=== PATIENT | female | born 1990 | race Hispanic/Latino ===

== ENCOUNTER → 2016-12-09 | Outpatient (CLI) | payer MEDICAID ==
[~2016-12-09] MED LIST: ACHD5005 PO; CYCL10TA9 PO; NAPR-243 PO; PREN1TAB39 PO
--- OUTSIDE RECORDS SUMMARY | 2016-12-09 08:13 | XMS REPORT ---
Author KITTY [facility] eClinicalWorks Address Unknown Phone Unavailable Care Team Providers Care Grant Officer Name Role Phone KITTY MORGAN CP Unavailable Allergies No Known Allergies Problems Problem Type Condition Code Onset Dates Condition Status Problem Routine follow-up V24.2 Active Problem Acute bronchitis 466.0 Active Problem Other general counseling and advice for contraceptive management V25.09 Active Problem Enlargement of lymph nodes 785.6 Active Problem Need for prophylactic vaccination and inoculation, Influenza V04.81 Active Problem Lumbago 724.2 Active Problem Depressive disorder, not elsewhere classified 311 Active Problem Anxiety state, unspecified 300.00 Active Problem examination or test, positive result V72.42 Active Problem Screening for malignant neoplasm of the cervix V76.2 Active Problem examination or test, negative result V72.41 Active Problem Supervision of other normal V22.1 Active Problem Uterine size date discrepancy, unspecified as to episode of care or not applicable 649.60 Active Medications No Known Medications Results No Known Results Summary Purpose eClinicalWorks Submission
--- NOTE | 2016-12-09 09:47 | Diagnostic Imaging Report ---
PROCEDURE: CT sinuses without contrast TECHNIQUE: Multiple contiguous axial images were obtained through the sinuses without the use of intravenous contrast. Coronal and sagittal reformations were then performed. INDICATION: Acute recurrent sinusitis. FINDINGS: There is significant mucosal thickening involving the maxillary sinuses, the ethmoidal air cells, the frontal sinuses, and the right sphenoidal sinus. Minimal mucosal thickening in the left sphenoidal sinus is seen. There is a mucosal retention cyst or a polyp measuring 2.9 cm in the right maxillary sinus. There is obliteration with mucosal thickening seen along the ostiomeatal complex on both sides. No significant free fluid is seen. The middle and inferior turbinates demonstrate mild to moderate mucosal hypertrophy. There is narrowing and partial obliteration of the upper nasal passages, possibly in part related to secretions. There is minimal nasoseptal deviation to the left. The mastoid air cells and middle ear cavities are clear. IMPRESSION: Pansinusitis. There is a 2.8 cm lobulated lesion in the right maxillary sinus, may relate to a mucosal retention cyst or a polyp. Dictated by: Dictated on workstation # [id number]
== END ==
LOC: RAD 08:01
PROVIDERS: ATTEND Nurse Practitioner Community Health
DX: J01.91 Acute recurrent sinusitis, unspecified (principal)
CPT/HCPCS: 70486

== ENCOUNTER → 2017-02-25 | Outpatient (CLI) | payer MEDICAID ==
--- NOTE | 2017-02-25 17:32 | Diagnostic Imaging Report ---
PROCEDURE: CT sinuses without contrast TECHNIQUE: Multiple contiguous axial images were obtained through the sinuses without the use of intravenous contrast. Coronal and sagittal reformations were then performed. INDICATION: A 26-year-old female with pansinusitis and a right maxillary polyp followup. COMPARISONS: 12/09/16. FINDINGS: Axial images and coronal reconstructions of the paranasal sinuses once again show severe pansinusitis with mucosal thickening noted in all sinuses. The right maxillary sinus is near-completely opacified, and the previously demonstrated large mucus retention cyst boundaries are less apparent. Ostiomeatal complexes are obstructed bilaterally. Nasal septum is essentially midline. Mastoid air cells appear well pneumatized. The orbits including the retro-orbital extraconal, conal, and intraconal spaces are normal. The zygomatic arches and pterygoid plates are normal. IMPRESSION: Severe chronic-appearing pansinusitis with near-complete opacification of the right maxillary sinus. The ostiomeatal complexes are obstructed. Dictated by: Dictated on workstation # [id number]
== END ==
LOC: RAD 16:28
PROVIDERS: ATTEND Otolaryngology Otolaryngology/Facial Plastic Surgery
DX: J32.9 Chronic sinusitis, unspecified (principal); J33.8 Other polyp of sinus
CPT/HCPCS: 70486

== ENCOUNTER 2017-04-02 05:37 | Outpatient (CLI) | payer MEDICAID ==
[~2017-04-02] VITALS: Ht 157.5 cm; Wt 49.9 kg
[2017-04-02] MEDS ORDERED: CETI10TA20 PO (14:36)
== END 2017-04-02 14:44 ==
LOC: PREOP 05:37
PROVIDERS: ATTEND Otolaryngology Otolaryngology/Facial Plastic Surgery
DX: Z01.818 Encounter for other preprocedural examination (principal); J32.9 Chronic sinusitis, unspecified; J34.89 Other specified disorders of nose and nasal sinuses; R09.81 Nasal congestion

== ENCOUNTER 2017-04-09 08:00 | Day surgery (SDC) | payer MEDICAID ==
[~2017-04-09] VITALS: Ht 157.5 cm; Wt 49.9 kg
[~2017-04-09 08:00] MED LIST changes: +CETI10TA20 PO
[2017-04-09] MEDS ORDERED: LACTATED RINGERS 1,000 ML IV PRN (08:18)
[2017-04-09] MEDS ORDERED: SEVOFLURANE (ULTANE) 15 ML INHAL SOLN ONE (08:25)
[2017-04-09] MEDS ORDERED: ROCURONIUM 50 MG/5 ML (ZEMURON) VIAL IV ONE (08:25)
[2017-04-09] MEDS ORDERED: fentaNYL INJECTION 100 MCG/2 ML AMP ONE (08:25)
[2017-04-09] MEDS ORDERED: ONDANSETRON 4 MG/2 ML (SDV) Z0FRAN ONE (08:25)
[2017-04-09] MEDS ORDERED: DEXAMETHASONE PF 10 MG/ML (DECADRON) VIAL ONE (08:25)
[2017-04-09] MEDS ORDERED: proPOfol 200 MG/20 ML (DIPRIVAN) VIAL IV ONE (08:25)
[2017-04-09] MEDS ORDERED: LACTATED RINGERS 1,000 ML IV ONE (08:25)
[2017-04-09] MEDS ORDERED: LIDOCAINE PF 2% 5 ML (XYLOCAINE) VIAL ONE (08:25)
[2017-04-09] MEDS ORDERED: MIDAZOLAM 2 MG/2 ML (VERSED) VIAL ONE (08:26)
[2017-04-09] MEDS ORDERED: AMPICILL/SULB 1.5 GM VIAL (UNASYN) ONE (08:30)
[2017-04-09] MEDS ORDERED: MIDAZOLAM 2 MG/2 ML (VERSED) VIAL IV ONE (08:30)
[2017-04-09] MEDS ORDERED: HYDROCORTISONE 100 MG/2 ML (Solu-CORTEF) VIAL ONE (08:30)
[2017-04-09] MEDS ORDERED: NS (IVPB) 50 ML ONE (08:30)
[2017-04-09] MEDS ORDERED: COCAINE HCL 4% 2 ML SYR ONE ×2 (08:33→08:52)
[2017-04-09] MEDS ORDERED: PHENYLEPHRINE 0.5% NASAL SPR (NEO-SYNEPHRINE) REG ONE ×2 (08:33→08:53)
[2017-04-09] MEDS ORDERED: LIDOCAINE/EPI 1%-1:200,000 (XYLOCAINE) 30 ML VIAL ONE ×2 (08:34→08:53)
[2017-04-09] MEDS ORDERED: MUPIROCIN 2% OINT 22 GM (BACTROBAN) TUBE ONE (08:34)
[2017-04-09] MEDS ORDERED: BSS 15 ML ONE (08:42)
[2017-04-09 08:59] LABS: BASOPHILS % (AUTO) 0 % (0-10); EOSINOPHILS # (AUTO) 0.4 10^3/uL (0.0-0.3); EOSINOPHILS % (AUTO) 4 % (0-10); LYMPHOCYTES # (AUTO) 4.1 X 10^3 (1.0-4.0); LYMPHOCYTES % (AUTO) 44 % (12-44); MEAN CORPUSCULAR HEMOGLOBIN 30 PG (25-34); MEAN CORPUSCULAR HGB CONC 33 G/DL (32-36); MEAN CORPUSCULAR VOLUME 91 FL (80-99); MEAN PLATELET VOLUME 10.5 FL (7.4-10.4); MONOCYTES # (AUTO) 0.6 X 10^3 (0.0-1.0); MONOCYTES % (AUTO) 7 % (0-12); NEUTROPHILS # (AUTO) 4.1 X 10^3 (1.8-7.8); NEUTROPHILS % (AUTO) 45 % (42-75); PLATELET COUNT 233 10^3/uL (130-400); RED CELL DISTRIBUTION WIDTH 12.3 % (10.0-14.5); WHITE BLOOD COUNT 9.3 10^3/uL (4.3-11.0)
[2017-04-09 09:00] VITALS: BP 126/92
[2017-04-09] MEDS ORDERED: HYDROCORTISONE 100 MG/2 ML (Solu-CORTEF) VIAL IV ONE (09:00)
[2017-04-09] MEDS ORDERED: AMPICILLIN/SULBACTAM 1.5 GM/NS 50 ML IVPB IV ONE ×2 (09:00)
[2017-04-09 09:19] LABS: ANION GAP 10 MMOL/L (5-14); BLOOD UREA NITROGEN 17 MG/DL (7-18); BUN/CREATININE RATIO 23 (0-20); CALCIUM 9.1 MG/DL (8.5-10.1); CARBON DIOXIDE 28 MMOL/L (21-32); CHLORIDE 104 MMOL/L (98-107); CREATININE SERUM 0.73 MG/DL (0.60-1.30); GFR ESTIMATED > 60; GLUCOSE 86 MG/DL (70-105); HEMOLYSIS 7 (0-29); ICTERUS 0.3 (0-1.9); LIPEMIA 12 (0-49); POTASSIUM 3.6 MMOL/L (3.6-5.0); SODIUM 142 MMOL/L (135-145)
--- NOTE | 2017-04-09 09:21 | Progress Note-Pre Operative ---
Pre-Operative Progress Note H&P Reviewed The H&P was reviewed, patient examined and no changes noted. Date Seen by Provider: Apr 09, 2017 Time Seen by Provider: 09:10 Date H&P Reviewed: Apr 09, 2017 Time H&P Reviewed: 09:10 Pre-Operative Diagnosis: Bilat Chronic Sinusitis, Deviated Septum, Bilat HYper of Inf turbs KARRIE MCCARTNEY MD Apr 09, 2017 9:21 am
[2017-04-09] MEDS ORDERED: D5 1/2 NS W/KCL 20 MEQ/L 1,000 ML IV SCH (10:35)
--- NOTE | 2017-04-09 10:35 | Progress Note-Post Operative ---
Post-Operative Progess Note Surgeon (s)/Athletic Field Custodian (s) Surgeon KARRIE MCCARTNEY MD Athletic Field Custodian n/a Pre-Operative Diagnosis Bilat Chronic Sinusitis, Deviated Septum, Bilat HYper of Inf turbs Post-Operative Diagnosis same Post-Op Procedure Note Date of Procedure: Apr 09, 2017 Name of Procedure Performed: Bilat ESS, Bilat REd of Inf Turbs Description & Findings Description and Findings: n/a Anesthesia Type get Estimated Blood Loss minimal Packing none. Specimen(s) collected/removed Bilat Chronic Sinus disease KARRIE MCCARTNEY MD Apr 09, 2017 10:35 am
[2017-04-09] MEDS ORDERED: ONDANSETRON 4 MG/2 ML (SDV) Z0FRAN IVP PRN (10:45)
[2017-04-09] MEDS ORDERED: predniSONE 20 MG TAB PO ONE (10:45)
[2017-04-09] MEDS ORDERED: PROMETHAZINE INJ 25 MG/ML (PHENERGAN) AMP IVP PRN (10:45)
[2017-04-09] MEDS ORDERED: ACETAMINOPHEN 325 MG TABLET/CAPLET (TYLENOL) PO PRN (10:45)
[2017-04-09] MEDS ORDERED: HYDROcodone/APAP 5 MG/325 MG (LORTAB) TAB PO PRN (10:45)
[2017-04-09] MEDS ORDERED: morphine INJ 10 MG/ML 1ML (SYR OR VIAL) IVP PRN (10:45)
[2017-04-09 11:25] VITALS: BP 129/91
[2017-04-09 11:55] VITALS: BP 132/92
[2017-04-09] MEDS ORDERED: AMOX-355 PO (12:21)
[2017-04-09] MEDS ORDERED: HYDR-3812 PO (12:21)
[2017-04-09] MEDS ORDERED: PRD20T PO (12:21)
[2017-04-09 12:25] VITALS: BP 125/78
== END 2017-04-09 13:30 | disposition home or self-care (01) ==
LOC: SDC 08:00
PROVIDERS: ATTEND Otolaryngology Otolaryngology/Facial Plastic Surgery
DX: J32.0 Chronic maxillary sinusitis (principal); J32.1 Chronic frontal sinusitis; J32.2 Chronic ethmoidal sinusitis; J34.3 Hypertrophy of nasal turbinates; J45.909 Unspecified asthma, uncomplicated
CPT/HCPCS: 36415; 80048; 84703; 85025; 87081

== ENCOUNTER 2017-12-01 15:28 | Emergency (ER) | payer MEDICAID ==
[~2017-12-01] VITALS: Ht 157.5 cm; Wt 49.9 kg
[~2017-12-01 15:28] MED LIST changes: +AMOX-355 PO; +PRD20T PO
[2017-12-01] MEDS ORDERED: FLUT16SP22 (15:45)
[2017-12-01] MEDS ORDERED: MONT10TA24 (15:45)
[2017-12-01] MEDS ORDERED: LEVO500T80 (15:45)
[2017-12-01] MEDS ORDERED: FLUT1DIS26 (15:45)
[2017-12-01] MEDS ORDERED: RT-ALBUINH (15:45)
--- NOTE | 2017-12-01 15:56 | ED Cough/URI ---
General Chief Complaint: Respiratory Problems Stated Complaint: BREATHING TROUBLE Nursing Triage Note: SOA WITH WHEEZING STARTING YESTERDAY. DENIES FEVER AND STATES HER INHALER IS NOT HELPING. PT IS ON ZYRTEC AND LEVAQUIN FOR A SINUS INFECTION. Source: patient Exam Limitations: no limitations History of Present Illness Date Seen by Provider: Dec 01, 2017 Time Seen by Provider: 15:55 Initial Comments To ER with wheezing and shortness of breath that began yesterday. She's had asthma for about the past 3 years she states were at least at about how long she 's had trouble with it. She has an inhaler at home that she's been using without relief. She is also recently had some nasal congestion, sore throat and so she is on Levaquin antibiotics currently. She is not on steroids. She has had chills but no measured fevers. Timing/Duration: constant Severity/Quality: moderate, dry cough Associated Symptoms: fever/chills, shortness of breath, wheezing Allergies and Home Medications Allergies Coded Allergies: NKANo Known Allergies (Verified Allergy, Unknown, 07/26/06) Home Medications Albuterol Sulfate 1 Puff Puff, (Reported) Cetirizine HCl 10 Mg Tablet, 10 MG PO DAILY, (Reported) Fluticasone Propionate 16 Gm Norman.susp, (Reported) Fluticasone/Salmeterol 1 Each Blst.w.dev, (Reported) Levofloxacin 500 Mg Tablet, (Reported) Montelukast Sodium 10 Mg Tablet, (Reported) Constitutional: see HPI EENTM: see HPI Respiratory: see HPI, cough, short of breath, wheezing Cardiovascular: no symptoms reported Genitourinary: no symptoms reported Musculoskeletal: no symptoms reported Skin: no symptoms reported Psychiatric/Neurological: No Symptoms Reported Hematologic/Lymphatic: No Symptoms Reported Past Ldgpdaq-Aqfynl-Jdkltu Hx Patient Social History Alcohol Use: Rarely Uses Recreational Drug Use: No Smoking Status: Never a Smoker Recent Foreign Travel: No Contact w/Someone Who Travel: No Recent Infectious Disease Expo: No Recent Hopitalizations: No Immunizations Up To Date Date of Influenza Vaccine: Aug 25, 2012 Seasonal Allergies Seasonal Allergies: Yes Surgeries History of Surgeries: No Respiratory History of Respiratory Disorde: Yes Respiratory Disorders: Asthma Cardiovascular History of Cardiac Disorders: No Neurological History of Neurological Disord: Yes (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) Reproductive System Hx Reproductive Disorders: No Genitourinary History of Genitourinary Disor: No Gastrointestinal History of Gastrointestinal Di: No Musculoskeletal History of Musculoskeletal Dis: No Endocrine History of Endocrine Disorders: No HEENT History of HEENT Disorders: No Loss of Vision: Denies Hearing Impairment: Denies Cancer History of Cancer: No Psychosocial History of Psychiatric Problem: No Integumentary History of Skin or Integumenta: No Blood Transfusions History of Blood Disorders: No Adverse Reaction to a Blood Tr: No Physical Exam Vital Signs Vital Signs - First Documented 12/01/17 12/01/17 15:30 16:04 Temp 98.3 Pulse 127 B/P (MAP) 135/66 (89) Pulse Ox 96 O2 Delivery Room Air Capillary Refill : Less Than 3 Seconds General Appearance: WD/WN, no apparent distress, No mild distress, No moderate distress, No severe distress Eyes: Bilateral Eye Normal Inspection, Bilateral Eye PERRL, Bilateral Eye EOMI HEENT: PERRL/EOMI, normal ENT inspection Neck: non-tender, full range of motion Respiratory: no respiratory distress, no accessory muscle use, decreased breath sounds, wheezing Cardiovascular: regular rate, rhythm, no murmur Gastrointestinal: normal bowel sounds, non tender, soft Extremities: normal range of motion, non-tender Neurologic/Psychiatric: alert, normal mood/affect, oriented x 3 Skin: normal color, warm/dry Progress/Results/Core Measures Suspected Sepsis Recent Fever Within 48 Hours: No Infection Criteria Present: Suspected New Infection New/Unexplained Altered Menta: No Sepsis Screen: No Definite Risk Sepsis Diagnosis: SIRS Temperature:98.3 Pulse: 127 Respiratory Rate: Blood Pressure 135 /66 Mean: 89 Results/Orders My Orders Orders - PATRICE KOO APRN Albuterol/Ipra Inhalation Soln (Duoneb I (12/01/17 16:00) Svn Sm Volume Nebulizer Rt-Rfs (12/01/17 15:47) Prednisone Tablet (Deltasone Tablet) (12/01/17 16:00) Chest Pa/Lat (2 View) (12/01/17 15:52) Influenza A And B Antigens (12/01/17 15:52) Medications Given in ED Current Medications Medications Dose Ordered Sig/[place] Route Start Time Stop Time Status Last Admin Dose Admin Albuterol/ Ipratropium 3 ml ONCE ONCE INH 12/01/17 16:00 12/01/17 16:01 DC 12/01/17 16:04 3 ML Vital Signs/I&O Vital Sign - Last 12Hours 12/01/17 12/01/17 15:30 16:04 Temp 98.3 Pulse 127 B/P (MAP) 135/66 (89) Pulse Ox 96 97 O2 Delivery Room Air Capillary Refill : Less Than 3 Seconds Blood Pressure Mean: 89 Departure Impression Impression: Primary Impression: Asthma exacerbation Disposition: HOME, SELF-CARE Condition: Stable Departure-Patient Inst. Decision time for Depature: 16:48 Referrals: KITTY MORGAN DO (PCP) Primary Care Physician LUIS ALFREDO MATTHEWS (Family) Primary Care Physician Patient Instructions: Asthma, Adult (DC) Add. Discharge Instructions: 1. Return to ER for any worsening symptoms or other concerns such as difficulty breathing, high fever 2. Use the nebulizer breathing machine every 4 hours 3. Steroids as directed 4. Follow-up with your regular doctor within 48 hours for recheck. Continue current antibiotics. All discharge instructions reviewed with patient and/or family. Voiced understanding. Scripts Albuterol Sulfate (Albuterol Sulfate) 2.5 Mg/3 Ml Vial.neb 2.5 MG IH Q4H, #25 EA Prov: PATRICE KOO APRN 12/01/17 Prednisone (Prednisone) 20 Mg Tab 40 MG PO DAILY, #8 TAB Prov: PATRICE KOO APRN 12/01/17 Work/School Note: Work Release Form Date Seen in the Emergency Department: Dec 01, 2017 Return to Work: Dec 03, 2017 PATRICE KOO APRN Dec 01, 2017 15:56
[2017-12-01] MEDS ORDERED: RT-ALBUTEROL/IPRATROPIUM 3 ML (DUONEB) VIAL INH ONE (16:00)
[2017-12-01] MEDS ORDERED: predniSONE 20 MG TAB PO ONE (16:00)
[2017-12-01] MEDS ORDERED: PRD20T PO (16:50)
[2017-12-01] MEDS ORDERED: ALBU2.5V4 IH (16:50)
--- NOTE | 2017-12-01 16:54 | Diagnostic Imaging Report ---
Clinical indication: A patient with cough, wheezing and congestion. Exam: Chest x-ray PA and lateral views. Comparisons: None. Findings: Lungs/pleura: Lungs are clear. There is no pneumothorax. There is no pleural effusion. Mediastinum: Unremarkable. Pulmonary vasculature: Unremarkable. Heart: Unremarkable. Bones/extrathoracic soft tissue: Unremarkable. Impression: There is no radiographic evidence of acute cardiopulmonary process. Dictated by: Dictated on workstation # [id number]
[2017-12-01] MEDS ORDERED: RT-ALBUTEROL SULF 2.5 MG/3 ML PRE-MIX VIAL ONE (17:09)
[2017-12-01 17:30] VITALS: BP 125/86
[2017-12-01] MEDS ORDERED: RT-ALBUTEROL SULF 2.5 MG/3 ML PRE-MIX VIAL INH SCH (21:00)
== END 2017-12-01 17:30 | disposition home or self-care (01) ==
LOC: EDUNIT# 15:28 → ER 15:29
DX: J45.901 Unspecified asthma with (acute) exacerbation (principal); Z88.1 Allergy status to other antibiotic agents
CPT/HCPCS: 71046; 87804; 94640; 99283

== ENCOUNTER 2018-04-29 07:22 | Day surgery (SDC) | payer MEDICAID ==
[~2018-04-29] VITALS: Ht 157.5 cm; Wt 49.9 kg
[~2018-04-29 07:22] MED LIST changes: +ALBU2.5V4 IH; +FLUT16SP22; +FLUT1DIS26; +LEVO500T80; +MONT10TA24; +RT-ALBUINH
[2018-04-29] MEDS ORDERED: ceFAZolin 2 GM IV Premixed 50 ML IV ONE (07:30)
[2018-04-29] MEDS ORDERED: LIDOCAINE/EPI 1%-1:200,000 (XYLOCAINE) 10 ML VIAL ONE ×2 (07:31→09:32)
[2018-04-29 07:45] VITALS: BP 115/90
[2018-04-29] MEDS: LACTATED RINGERS 1,000 ML IV PRN ×2 (07:50→10:17)
[2018-04-29] MEDS ORDERED: LIDOCAINE PF 2% 5 ML (XYLOCAINE) VIAL ONE ×2 (07:55→08:00)
[2018-04-29] MEDS ORDERED: proPOfol 200 MG/20 ML (DIPRIVAN) VIAL IV ONE (07:55)
[2018-04-29] MEDS ORDERED: fentaNYL INJECTION 100 MCG/2 ML AMP ONE (07:56)
[2018-04-29] MEDS ORDERED: MIDAZOLAM 2 MG/2 ML (VERSED) VIAL ONE (07:56)
[2018-04-29] MEDS ORDERED: SEVOFLURANE (ULTANE) 15 ML INHAL SOLN ONE ×2 (07:59→10:16)
[2018-04-29] MEDS ORDERED: ONDANSETRON 4 MG/2 ML (SDV) Z0FRAN ONE (08:00)
[2018-04-29] MEDS ORDERED: DEXAMETHASONE 10 MG/ML (DECADRON) 1 ML VIAL ONE (08:00)
--- NOTE | 2018-04-29 09:11 | Progress Note-Pre Operative ---
Pre-Operative Progress Note H&P Reviewed The H&P was reviewed, patient examined and no changes noted. Time Seen by Provider: 09:06 Date H&P Reviewed: Apr 29, 2018 Time H&P Reviewed: 09:09 Pre-Operative Diagnosis: possible anal fistula KINGS DA SILVA DO Apr 29, 2018 09:11
[2018-04-29] MEDS ORDERED: PHENYLEPHRINE 100 MCG/ML 10 ML (ANESTHESIA) SYR ONE (09:40)
--- NOTE | 2018-04-29 09:52 | Progress Note-Post Operative ---
Post-Operative Progess Note Surgeon (s)/Guest Services (s) Surgeon KINGS DA SILVA DO Guest Services: none Pre-Operative Diagnosis possible anal fistula Post-Operative Diagnosis Inguinal Abscess Procedure & Operative Findings Date of Procedure 04/29/18 Procedure Performed/Findings REUA I&D inguinal abscess Anesthesia Type GET Estimated Blood Loss Estimated blood loss (mL): Scant Specimens/Packing Specimens Removed none KINGS DA SILVA DO Apr 29, 2018 09:52
[2018-04-29] MEDS ORDERED: ACHD5005 PO (09:53)
--- NOTE | 2018-04-29 09:55 | Discharge Inst-Surgical ---
Discharge Inst-Surgical Depart Medication/Instructions New, Converted or Re-Newed RX: RX Given to Pt/Family Patient Instructions Follow up Appt: Make appointment for 1 week. Instructions: No lifting greater than 10 pounds. No strenuous activity. May shower in 24 hours, no tub bath or soaking. Use incentive spirometer at home as directed. No Smoking Skin/Wound Care: May remove bandages in the am. Keep area clean and dry. Symptoms to Report: Appetite Changes, Extremity Discoloration, Numbness/Tingling, Swelling Increased , Bleeding Excessive, Eyesight Changes, Pain Increased, Urine Color Change, Constipation(Persistent), Fever over 101 degree F, Pain/Pressure in chest, Urinating Difficulty, Cough Up/Vomit Blood, Heart Beat Irreg/Pounding, Pain/ Pressure in jaw, Vaginal Bleeding Increase, Cramps in feet or legs, Lightheadedness, Pain/Pressure in shoulder, Diarrhea(Persistent), Memory Changes Suddenly, Questions/Concerns, Weight gain consecutive days, Dizziness/ Fainting, Nausea/Vomiting, Shortness of Breath, Weight gain over 2 pounds If questions or concerns contact your physician Or seek help at emergency department. Activity Activity Instructions: Avoid Stress to Incision Driving Instructions: No Driving/Refer to Diet Discharge Diet: No Restrictions Diet After 24 Hours: Clear Liquid if Nauseous If Any Problems/Questions/Issu: Contact Your Physician, Go to Emergency Room Skin/Wound Care Infection Signs and Symptoms: Increased Redness, Foul Odor of Wound, Increased Drainage, Skin Itchy or Has a Rash, Increased Swelling, Temperature Above 101 F Bathing Instructions: Shower Ice Pack: Ice On and Off Site (as needed for pain) KINGS DA SILVA DO Apr 29, 2018 09:55
--- NOTE | 2018-04-29 10:07 | Anesthesia-General Post-Op ---
General Patient Condition Mental Status/LOC: Same as Preop Cardiovascular: Satisfactory Nausea/Vomiting: Absent Respiratory: Satisfactory Pain: Controlled Complications: Absent Post Op Complications Complications None Follow Up Care/Instructions Patient Instructions None needed. Anesthesia/Patient Condition Patient Condition Patient is doing well, no complaints, stable vital signs, no apparent adverse anesthesia problems. No complications reported per nursing. DAO MENDEZ CRNA Apr 29, 2018 10:07
[2018-04-29] MEDS ORDERED: ONDANSETRON 4 MG/2 ML (SDV) Z0FRAN IVP PRN (10:15)
[2018-04-29] MEDS ORDERED: morphine INJ 10 MG/ML 1ML (SYR OR VIAL) IVP PRN (10:15)
[2018-04-29] MEDS ORDERED: morphine INJ 10 MG/ML 1ML (SYR OR VIAL) ONE (10:19)
[2018-04-29 11:00] VITALS: BP 118/71
[2018-04-29 11:30] VITALS: BP 105/64
[2018-04-29 11:50] VITALS: BP 107/63
--- NOTE | 2018-04-29 15:39 | OPERATIVE REPORT ---
DATE OF SERVICE: 04/29/2018 PREOPERATIVE DIAGNOSES: Possible anal fistula and possible perirectal abscess. POSTOPERATIVE DIAGNOSIS: Inguinal abscess. PROCEDURE: 1. Rectal exam under anesthesia. 2. Incision and drainage of inguinal abscess. SURGEON: Earl Sahu DO URBAN FORESTER: None. ANESTHESIA: General endotracheal tube. SPECIMENS: None. BLOOD LOSS: Scant. FLUIDS: Per anesthesia. POSTOPERATIVE CONDITION: Stable. INDICATION FOR PROCEDURE: The patient is a 27-year-old female, who was seen in the office with complaints of rectal pain, fullness, swelling seen for possible fistula and set up for a possible fistulectomy, fistulotomy, Seton placement. FINDINGS: The area that had been previously inflamed was now not inflamed, could not feel any deep abscess, could not feel any connection between the rectum and she did have a new inguinal abscess and rectal exam was performed. PROCEDURE NOTE: After informed consent was obtained, the patient was brought to the operating room, placed on the table in lithotomy position. She was sterilely prepped and draped in normal fashion. Upon visual inspection, the patient had a new abscess in the inguinal area. She had actually mentioned this prior to going back to the operating room and stated she wanted it looked at. She was given ischial tuberosity blocks then did a rectal exam under anesthesia. Inserted the speculum, opened it gently and then looked all around starting at 12 o'clock and going all around back to the 12 o'clock position and did not find any inflammatory spots, did not find any openings. No sign of an anal fistula on the inside. Inspected the area that was previously seen was at 8 o'clock position during the exam in the office now would be about 5 o'clock position or 4 o'clock position. When in the lithotomy position, I did not see a previous area of redness. Nothing obvious, but we did find was in the inguinal area, there was a new large what looked like an abscess. This was infiltrated with local lidocaine around it as well. I then made an incision with #11 blade, carried down through the skin, found some slightly necrotic tissue. This was cauterized and debrided. No real pus. I did not see any connection to anywhere else and this was after debridement and inspection then irrigated and then closed with 4-0 undyed Monocryl to close it loosely, two 4-0 stitches were used and again looked around inspected the perirectal area, did not find any other abscesses and at this point then finished the procedure. The inguinal incision was dressed and the patient was then transferred to recovery room in stable condition. Sponge, instrument and needle count correct at the end of the case. Job ID: [id number] DocumentID: [id number] Dictated Date: 04/29/2018 11:10:21 Collar Folder Operator Date: 04/29/2018 15:38:33 Dictated By: DO SHERIF KING
== END 2018-04-29 11:55 | disposition home or self-care (01) ==
LOC: SDC 07:22
PROVIDERS: ATTEND Surgery
DX: K62.89 Other specified diseases of anus and rectum (principal); L02.214 Cutaneous abscess of groin; J45.909 Unspecified asthma, uncomplicated
CPT/HCPCS: 84703; 87081

== ENCOUNTER 2018-11-04 05:38 | Outpatient (CLI) | payer MEDICAID ==
[~2018-11-04] VITALS: Ht 157.5 cm; Wt 51.3 kg
[~2018-11-04 05:38] MED LIST changes: -RT-ALBUINH; +RT-ALBUINH IH
== END 2018-11-04 12:30 | disposition home or self-care (01) ==
LOC: PREOP 05:38
PROVIDERS: ATTEND Surgery
DX: Z01.818 Encounter for other preprocedural examination (principal)

== ENCOUNTER 2018-11-09 08:02 | Day surgery (SDC) | payer MEDICAID ==
[~2018-11-09] VITALS: Ht 157.5 cm; Wt 51.3 kg
[~2018-11-09 08:02] MED LIST changes: +LACTATED RINGERS 1,000 ML IV ONE
[2018-11-09 08:05] VITALS: BP 126/92
[2018-11-09] MEDS ORDERED: LACTATED RINGERS 1,000 ML IV STA (08:12)
[2018-11-09] MEDS ORDERED: MIDAZOLAM 2 MG/2 ML (VERSED) VIAL ONE (08:14)
[2018-11-09] MEDS ORDERED: PROPOFOL INJECTION 50 ML IV ONE (08:14)
[2018-11-09] MEDS ORDERED: HURRICAINE EXT TUBE (BENZOCAINE) XX PRN (08:15)
--- NOTE | 2018-11-09 08:27 | Progress Note-Pre Operative ---
Pre-Operative Progress Note H&P Reviewed The H&P was reviewed, patient examined and no changes noted. Time Seen by Provider: 08:23 Date H&P Reviewed: Nov 09, 2018 Time H&P Reviewed: 08:25 Pre-Operative Diagnosis: Gastritis, Cough, Asthma KINGS DA SILVA DO Nov 09, 2018 08:27
[2018-11-09] MEDS ORDERED: HURRICAINE EXT TUBE (BENZOCAINE) ONE (08:30)
[2018-11-09] MEDS ORDERED: fentaNYL INJECTION 100 MCG/2 ML AMP ONE (08:35)
--- NOTE | 2018-11-09 08:51 | Progress Note-Post Operative ---
Post-Operative Progess Note Surgeon (s)/Afternoon Nanny (s) Surgeon KINGS DA SILVA DO Afternoon Nanny: none Pre-Operative Diagnosis Gastritis, Cough, Asthma Post-Operative Diagnosis Gastritis Gastric polyp Esophagitis Procedure & Operative Findings Date of Procedure 11/09/18 Procedure Performed/Findings EGD with bx EGD with polypectomy Anesthesia Type IV sedation by CARAMEL CUTTER HELPER Estimated Blood Loss Estimated blood loss (mL): scant Specimens/Packing Specimens Removed Antral bx Body of stomach bx Polyp biopsy GE jxn bx KINGS DA SILVA DO Nov 09, 2018 08:51
[2018-11-09] MEDS ORDERED: PANT40TA2 PO (08:52)
--- NOTE | 2018-11-09 08:54 | Endoscopy Discharge Instruct ---
Endo Procedure/Findings Findings 1.: Gastritis 2.: Polyp (on lesser curvature of stomach) 3.: Other Findings (Esophagitis) Discharge Instructions - Activity: You might feel a little sleepy until tomorrow. This is due to the medicine you received to relax you. Until tomorrow, you should: NOT drive a car, operate machinery or power tools. NOT drink any alcoholic beverages. NOT make any important decisions or sign importortant papers. Do not return to work until tomorrow, unless otherwise instructed. Resume previous activities tomorrow. Diet: Start by taking liquids. If you tolerate liquids, advance to solid food. Make an appointment for one week. Instructions: 1.: EGD in 6-8 weeks Notify Physician - If you experience excessive bleeding, unusual abdominal pain, fever, or chest pain, contact your doctor immediately. Follow-Up: - I have received and understand the above instructions and will call my doctor if I have any further questions. Patient Signature Date Nurse Signature Other (Relationship) KINGS DA SILVA DO Nov 09, 2018 08:54
[2018-11-09 09:15] VITALS: BP 131/62
[2018-11-09 09:45] VITALS: BP 105/80
[2018-11-09 10:00] VITALS: BP 105/80
--- OUTSIDE RECORDS SUMMARY | 2018-11-09 10:07 | XMS REPORT ---
Author Author LUIS ALFREDO MATTHEWS Organization [facility] Address [address] [place] [address] [address] Care [address] Man Name Role Phone LUIS ALFREDO MATTHEWS Unavailable PROBLEMS Type Condition ICD9-CM Code NZK29-TN Code Onset Dates Condition Status SNOMED Code Problem Mild intermittent asthma without complication J45.20 Active 927622783 Problem Anal fistula K60.3 Active 61896769 Problem Anxiety F41.9 Active 71923391 Problem Dysthymia F34.1 Active 93900451 Problem Insomnia, unspecified type G47.00 Active 957034503 Problem Moderate persistent asthma without complication J45.40 Active 220258628 Problem Anorexia R63.0 Active 08183667 Problem Chronic pansinusitis J32.4 Active 34661725 ALLERGIES Substance Reaction Event Type Date Status Ortho Tri-Cyclen (28) nausea Drug Allergy Mar, Active Depo-Provera Unknown Drug Allergy Mar, Active ENCOUNTERS Encounter Location Date Diagnosis [facility] [id number] [place] [address]28- 3461 Mar, Anxiety F41.9 ; Moderate persistent asthma without complication J45.40 and Acute non-recurrent maxillary sinusitis J01.00 [facility] [id number] [place] [address] 22109 -5977 13 Mar, 2018 Pilonidal cyst L05.91 [facility] [id number] [place] [address] 37818- 7182 Jan, Encounter for test, result unknown Z32.00 [facility] [id number] [place] [address] 58003 -8302 16 Jan, 2018 Nausea R11.0 [facility] [address] [address]- 9936 Dec, Moderate persistent asthma without complication J45.40 [facility] [id number] [place] [address] 87187- 3496 Dec, Dysthymia F34.1 ; Moderate persistent asthma without complication J45.40 and Anorexia R63.0 [place] [id number] [place] [address] 27882- 6187 May, Acute non-recurrent maxillary sinusitis J01.00 [facility] [address] [address]44- 3271 14 Dec, 2016 control counseling Z30.09 [place] [address] 88830- 3186 02 Dec, 2016 Chronic pansinusitis J32.4 [place] [address] 59092- 8784 21 Nov, 2016 [place] [address] 12327- 3491 14 Nov, 2016 [place] [id number] [place] [address] 05161- 3629 13 Nov, 2016 Acute recurrent sinusitis, unspecified location J01.91 and control counseling Z30.09 [place] [id number] [place] [address] 62090- 0312 11 Oct, 2016 Acute non-recurrent sphenoidal sinusitis J01.30 ; Moderate persistent asthma without complication J45.40 and Encounter for surveillance of contraceptive pills Z30.41 [place] [address] [place] [address] 15851- 2849 Oct, Moderate persistent asthma without complication J45.40 [place] [id number] [place] [address] 35427- 9998 Oct, Encounter for contraceptive management, unspecified contraceptive encounter type Z30.9 and Moderate persistent asthma without complication J45.40 [place] [id number] [place] [address] 58864- 1980 Aug, Well woman exam with routine gynecological exam Z01.419 [facility] [address] 78856- 0733 09 Aug, 2016 Encounter for contraceptive management, unspecified contraceptive encounter type Z30.9 ; Subacute frontal sinusitis J01.10 and Insomnia, unspecified type G47.00 [facility] [address] 50974- 0325 Jul, Moderate persistent asthma without complication J45.40 [facility] [address] 83729 -9839 29 Jun, 2016 Wheezing R06.2 and Mild intermittent asthma in adult without complication J45.20 [place] [address] 01570- 1214 Jun, Mild intermittent asthma without complication J45.20 and Bleeding external hemorrhoids K64.4 [facility] [address] 36339 -9190 Jun, Allergic rhinitis, unspecified allergic rhinitis trigger, unspecified rhinitis seasonality J30.9 [facility]ALK IN [facility] [address] 24199 -6064 May, Acute recurrent sinusitis, unspecified location J01.91 and Exposure to head lice Z20.[address] 22543- 2161 Jan, Reactive airway disease J45.[address] [facility] [address] [id number] Jan, Dental examination Z01.20 [facility] [address] 99742- 2088 24 Dec, 2015 Acute bronchitis J20.9 and Left knee pain M25.562 [place] [address] 54255- 5858 Sep, [place] [address] [place] [address]- 0479 14 Jan, 2015 [facility] [place] [facility] [address] [id number] [place] [address]- 2198 13 Jan, 2015 [facility] [place] [facility] [address] [id number] [place] [address]- 2578 31 Sep, 2014 [facility] [place] [facility] [address] [id number] [place] [address]- 3995 Sep, [facility] [place] [facility] [address] [id number] [place] [address]- 6994 Mar, [facility] [place] [facility] [address] [id number] [place] [address]- 2938 Mar, [facility] [place] [facility] [address] [id number] [place] [address]- 4556 Mar, [facility] [place] [facility] [address] [id number] [place] [address]- 9842 Mar, [facility] [place] [facility] [address] [id number] [place] [address]- 4130 Mar, [facility] [place] [facility] [address] [id number] [place] [address]- 1139 Mar, [facility] [place] [facility] [address] [facility] [id number] [place] [address]- 9900 Sep, [facility] [place] [facility] [address] [id number] [place] [address]- 8273 Sep, [facility] [place] [facility] [address] [id number] [place] [address]- 6552 Aug, [facility] [place] [facility] [address] [id number] [place] [address]- 5349 05 Aug, 2013 [facility] [place] [facility] [address] [facility] [id number] [place] [address]- 2737 19 Jun, 2013 [facility] [place] [facility] [address] [id number] [place]393 16 Jun, 2013 [facility] [place] [facility] [address] [id number] [place] [address]- 0409 Jun, [facility] [address] [id number] [place] [address]- 0441 February, [facility] [place] [facility] [address] [id number] [place] [address]- 2283 Oct, [facility] [address] [id number] [place] [address]- 0101 Sep, [facility] [address] [id number] [place] [address]- 0730 Sep, [facility] [address] [id number] [place] [address]- 3781 Aug, [facility] [address] [id number] [place] [address]- 5305 Aug, [facility] [address] [id number] [place] [address]- 4665 Aug, [facility] [place] [facility] [address] [id number] [place] [address]- 9869 Aug, [facility] [address] [id number] [place] [address]- 6632 Aug, [facility] [place] [facility] [address] [id number] [place] [address]- 5747 Aug, [facility] [place] [facility] [address] [id number] [place] [address]- 7184 Aug, [facility] [place] [facility] [address] [id number] [place] [address]- 8988 Aug, [facility] [place] [facility] [address] [id number] [place] [address]- 1037 Aug, [facility] [place] [facility] [address] [id number] [place] [address]- 3550 Aug, [facility] [place] [facility] [address] [id number] [place] [address]- 2546 Jul, [facility] [place] [facility] [address] [id number] [place] [address]- 9845 Jul, [facility] [place] [facility] [address] [id number] [place] [address]- 6733 Jul, [facility] [place] [facility] [address] [id number] [place] [address]- 9950 Jul, [facility] [place] [facility] [address] [id number] [place] [address]- 4291 Jul, [facility] [place] [facility] [address] [id number] [place] [address]- 0919 Jul, [facility] [place] [facility] [address] [id number] [place] 4791 Jul, [facility] [place] [facility] [address] [id number] [place] [address]- 2356 Jul, [facility] [place] [facility] [address] [id number] [place] [address]- 7666 Jul, [facility] [place] [facility] [address] [id number] [place] [address]- 2102 Jun, [facility] [place] [facility] [address] [id number] [place] [address]- 0766 May, [facility] [place] [facility] [address] [id number] [place] [address]- 7942 Apr, [facility] [place] [facility] [address] [id number] [place] [address]- 9801 Apr, [facility] [place] [facility] [address] [id number] [place] [address]- 3072 Apr, [facility] [place] [facility] [address] [id number] [place] [address]- 4534 Mar, [facility] [place] [facility] [address] [id number] [place] [address]- 0302 Mar, [facility] [place] [facility] [address] [facility] [id number] [address]84 Mar, [facility] [address] [facility] [id number] [address]- 5027 Mar, [facility] [address] [address]- 7916 February, [facility] [address] [address]- 6205 Sep, [facility] [address] [address]- 3354 Sep, [place] [address] [address]- 2591 February, IMMUNIZATIONS No Known Immunizations SOCIAL HISTORY Never Assessed REASON FOR VISIT Depression f/u- pt states she is "good". Raiza, Feels like she has a sinus infection. PLAN OF CARE Activity Details Follow Up next available Reason:depression VITAL SIGNS Height 62 in 2018-04-18 Weight 111.6 lbs 2018-04-18 Temperature 98.4 degrees Fahrenheit 2018-04-18 Heart Rate 76 bpm 2018-04-18 Respiratory Rate 20 2018-04-18 BMI 20.41 kg/m2 2018-04-18 Blood pressure systolic 112 mmHg 2018-04-18 Blood pressure diastolic 80 mmHg 2018-04-18 MEDICATIONS Medication Instructions Dosage Frequency Start Date End Date Duration Status Azithromycin 250 MG Orally 2 tabs on day #1 then 1 tab daily days 2-5 as directed Mar, Active Sertraline HCl 50 mg Orally Once a day X 4 days then 1 tab 1/2 tablet Mar, 30 day(s) Active Singulair 10 mg Orally Once a day in PM 1 tablet in the evening Jan, Active Pulmicort Flexhaler 180 MCG/ACT Inhalation Twice a day 1 puff 12h 14 Dec, 2017 Active Albuterol Sulfate (2.5 MG/3ML) 0.083% Inhalation Three times a day 3 ml 8h 12 Jul, 2016 Active Zyrtec Allergy 10MG Orally Once a day Ike 1 tablet as needed 30 Active Qnasl 80 MCG/ACT Nasally Once a day 2 puffs in each nostril 24h 20 Dec, 2018 90 days Active Albuterol Sulfate HFA 108 (90 Base) MCG/ACT Inhalation every 4 hrs 2 puffs as needed 4h Jun, 90 days Active Zofran 4 MG Orally every 8 hours, PRN as directed Jan, 03 days Not-Taking RESULTS No Results PROCEDURES No Known procedures INSTRUCTIONS MEDICATIONS ADMINISTERED No Known Medications MEDICAL (GENERAL) HISTORY Type Description Date Medical History Seasonal allergic rhinitis, unspecified allergic rhinitis trigger Surgical History Sinus surgery 05/2017 Hospitalization History childbirth x3 Hospitalization History miscarriage x1
--- OUTSIDE RECORDS SUMMARY | 2018-11-09 10:07 | XMS REPORT ---
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 Active 20937397 Problem Anxiety F41.9 Active 90568619 Problem Dysthymia F34.1 Active 55191216 Problem Insomnia, unspecified type G47.00 Active 922798862 Problem Moderate persistent asthma without complication J45.40 Active 821363176 Problem Anorexia R63.0 Active 48702420 Problem Chronic pansinusitis J32.4 Active 66948055 ALLERGIES Substance Reaction Event Type Date Status Ortho Tri-Cyclen (28) nausea Drug Allergy Sep, Active Depo-Provera Unknown Drug Allergy Sep, Active ENCOUNTERS Encounter Location Date Diagnosis [place] [id number] [place] [address] 44586- 2300 Oct, [facility] [id number] [place] [address] 59925 -7035 Sep, Acute non-recurrent frontal sinusitis J01.10 [facility] [id number] [place] [address] 73676- 4225 Mar, Anxiety F41.9 ; Moderate persistent asthma without complication J45.40 and Acute non-recurrent maxillary sinusitis J01.00 [facility] [id number] [place] [address] 55410 -2254 Mar, Pilonidal cyst L05.91 [place] [id number] [place] [address] 38897- 3601 Jan, Encounter for test, result unknown Z32.00 [facility] IN [facility] [address] 54963 -3577 16 Jan, 2018 Nausea R11.0 [facility] [address] 73303- 8631 20 Dec, 2017 Moderate persistent asthma without complication J45.40 [facility] [address] 310468- 6126 14 Dec, 2017 Dysthymia F34.1 ; Moderate persistent asthma without complication J45.40 and Anorexia R63.0 [place] [address] 21762- 7909 May, Acute non-recurrent maxillary sinusitis J01.00 [place] [address] 95612- 5460 14 Dec, 2016 control counseling Z30.09 [place] [address] 68363- 1431 02 Dec, 2016 Chronic pansinusitis J32.4 [place] [address] 90166- 2125 21 Nov, 2016 [facility] [address] 95118- 6178 14 Nov, 2016 [facility] [address] 52557- 5215 13 Nov, 2016 Acute recurrent sinusitis, unspecified location J01.91 and control counseling Z30.09 [place] [address] 06546- 4945 11 Oct, 2016 Acute non-recurrent sphenoidal sinusitis J01.30 ; Moderate persistent asthma without complication J45.40 and Encounter for surveillance of contraceptive pills Z30.41 [place] [address] 57300- 8345 10 Oct, 2016 Moderate persistent asthma without complication J45.40 [facility] [id number] [place] [address] 81634- 6999 Oct, Encounter for contraceptive management, unspecified contraceptive encounter type Z30.9 and Moderate persistent asthma without complication J45.40 [place] [address] 39484- 3270 Aug, Well woman exam with routine gynecological exam Z01.419 [place] [address] 19605- 5085 Aug, Encounter for contraceptive management, unspecified contraceptive encounter type Z30.9 ; Subacute frontal sinusitis J01.10 and Insomnia, unspecified type G47.00 [place] [address] 94805- 9613 Jul, Moderate persistent asthma without complication J45.40 [facility] [address] 15778 -1711 Jun, Wheezing R06.2 and Mild intermittent asthma in adult without complication J45.20 [place] [address] 11806- 8517 Jun, Mild intermittent asthma without complication J45.20 and Bleeding external hemorrhoids K64.4 [facility] [address] 05518 -9095 Jun, Allergic rhinitis, unspecified allergic rhinitis trigger, unspecified rhinitis seasonality J30.9 [facility] [address] 22769 -1624 May, Acute recurrent sinusitis, unspecified location J01.91 and Exposure to head lice Z20.[address] 6[address]- 7639 18 Jan, 2016 Reactive airway disease J45.909 and Constipation K59.00 [facility] [address] [id number] Jan, Dental examination Z01.20 [facility] [address] [facility] [id number] [address]- 1110 24 Dec, 2015 Acute bronchitis J20.9 and Left knee pain M25.562 [facility] [address] [place] [address]- 3890 14 Sep, 2015 [facility] [id number] [address]- 7337 14 Jan, 2015 [facility] [id number] [place] [address] 52867- 8323 Jan, [facility] [id number] [place] [address], [place] [address]- 8382 Sep, [facility] [id number] [place] [address] 05787- 0399 Sep, [facility] [id number] [place] [address] 83065- 2922 Mar, [facility] [address] [address]- 5719 Mar, [facility] [address] [place] [address] 67482- 3733 Mar, [facility] [address] [address]- 1938 Mar, [facility] [address] [address]- 1579 Mar, [facility] [address] [address]- 2720 Mar, [facility] [address] [address]- 7139 Sep, [facility] [address] [address]- 4207 Sep, [facility] [address] [address]- 7238 Aug, [facility] [place] [facility] [address] [id number] [place] [address]- 3026 05 Aug, 2013 [facility] [place] [facility] [address] [id number] [place] [address]- 0636 19 Jun, 2013 [facility] [place] [facility] [address] [id number] [place] [address] 2546 16 Jun, 2013 [facility] [place] [facility] [address] [id number] [place] [address]- 9914 12 Jun, 2013 [facility] [place] [facility] [address] [id number] [place] [address]- 6460 February, [facility] [place] [facility] [address] [id number] [place] [address]- 1366 Oct, [facility] [place] [facility] [address] [id number] [place] [address]- 9692 Sep, [facility] [place] [facility] [address] [id number] [place] [address]- 1450 Sep, [facility] [place] [facility] [address] [id number] [place] [address]- 9537 Aug, [facility] [place] [facility] [address] [id number] [place] [address]- 6282 Aug, [facility] [place] [facility] [address] [id number] [place] [address]- 4333 Aug, [facility] [place] [facility] [address] [id number] [place] [address]- 0855 Aug, [facility] [place] [facility] [address] [id number] [place] [address]- 5822 Aug, [facility] [place] [facility] [address] [id number] [place] [address]- 4265 Aug, [facility] [place] [facility] [address] [id number] [place] [address]- 9110 Aug, [facility] [place] [facility] [address] [id number] [place] [address]- 9064 Aug, [facility] [place] [facility] [address] [id number] [place] [address]- 7526 Aug, [facility] [place] [facility] [address] [id number] [place] [address]- 7343 Aug, [facility] [place] [facility] [address] [id number] [place] [address]609 Jul, [facility] [place] [facility] [address] [id number] [place] [address]- 6543 Jul, [facility] [place] [facility] [address] [id number] [place] [address]- 6598 Jul, [facility] [place] [facility] [address] [id number] [place] [address]- 7055 Jul, [facility] [place] [facility] [address] [id number] [place] [address]- 2194 Jul, [facility] [place] [facility] [address] [id number] [place] [address]- 3036 Jul, [facility] [place] [facility] [address] [id number] [place] [address]- 3772 Jul, [facility] [place] [facility] [address] [id number] [place] [address]- 1884 Jul, [facility] [place] [facility] [address] [id number] [address]- 2816 Jul, [facility] [place] [facility] [address] [id number] [place] [address]- 3953 Jun, [facility] [place] [facility] [address] [id number] [place] [address]- 3942 May, [facility] [place] [facility] [address] [id number] [place] [address]- 7939 Apr, [facility] [place] [facility] [address] [id number] [place] [address]- 8266 Apr, [facility] [place] [facility] [id number] [address]- 9804 Apr, [facility] [address] [address]60 Mar, [facility] [address] [address] 5103 Mar, [facility] [address] [place] [address] 009669- 3035 Mar, [facility] [address] [place] [address] 90706- 5710 Mar, [facility] [id number] [place] [address] 632332- 0397 February, [facility] [id number] [place] [address] 30109- 5642 Sep, [facility] [id number] [place] [address] 714821- 8736 Sep, [facility] [address] [address]- 8810 February, IMMUNIZATIONS No Known Immunizations SOCIAL HISTORY Never Assessed REASON FOR VISIT Congestion; face swelling/puffiness around eyes and watery eyes; coughing/ wheezing, but inhaler is not helping; pain in left ribs causing poor appetite; diarrhea - [facility], LMP: 1 month ago PLAN OF CARE Activity Details Follow Up prn Reason: VITAL SIGNS Height 62 in 2018-09-28 Weight 111.2 lbs 2018-09-28 Temperature 98.5 degrees Fahrenheit 2018-09-28 Heart Rate 92 bpm 2018-09-28 Respiratory Rate 18 2018-09-28 BMI 20.34 kg/m2 2018-09-28 Blood pressure systolic 120 mmHg 2018-09-28 Blood pressure diastolic 74 mmHg 2018-09-28 MEDICATIONS Medication Instructions Dosage Frequency Start Date End Date Duration Status Albuterol Sulfate HFA 108 (90 Base) MCG/ACT Inhalation every 4 hrs 2 puffs as needed 4h Jun, 90 days Active Sertraline HCl 50 mg Orally Once a day X 4 days then 1 tab 1/2 tablet Mar, 30 day(s) Active Augmentin 875-125 MG Orally every 12 hrs 1 tablet 12h Sep, 14 days Active Zyrtec Allergy 10MG Orally Once a day Ike 1 tablet as needed 30 Active Qnasl 80 MCG/ACT Nasally Once a day 2 puffs in each nostril 24h Dec, 90 days Active PredniSONE 20 MG Orally Once a day 3 tablets 24h Sep, 3 days Active Singulair 10 mg Orally Once a day in PM 1 tablet in the evening Jan, Active Pulmicort Flexhaler 180 MCG/ACT Inhalation Twice a day 1 puff 12h 14 Dec, 2017 Active Albuterol Sulfate (2.5 MG/3ML) 0.083% Inhalation Three times a day 3 ml 8h 12 Jul, 2016 Active RESULTS No Results PROCEDURES No Known procedures INSTRUCTIONS MEDICATIONS ADMINISTERED No Known Medications MEDICAL (GENERAL) HISTORY Type Description Date Medical History Seasonal allergic rhinitis, unspecified allergic rhinitis trigger Surgical History Sinus surgery 05/2017 Hospitalization History childbirth x3 Hospitalization History miscarriage x1
--- OUTSIDE RECORDS SUMMARY | 2018-11-09 10:08 | XMS REPORT ---
Author Author CATHIE MARCOS Organization 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 Active 20611941 Problem Anxiety F41.9 Active 60239955 Problem Dysthymia F34.1 Active 36183585 Problem Insomnia, unspecified type G47.00 Active 898762111 Problem Moderate persistent asthma without complication J45.40 Active 230681845 Problem Anorexia R63.0 Active 32281349 Problem Chronic pansinusitis J32.4 Active 92672187 ALLERGIES Substance Reaction Event Type Date Status Ortho Tri-Cyclen (28) nausea Drug Allergy Mar, Active Depo-Provera Unknown Drug Allergy Mar, Active ENCOUNTERS Encounter Location Date Diagnosis [facility] [address] [address] Mar, Anxiety F41.9 ; Moderate persistent asthma without complication J45.40 and Acute non-recurrent maxillary sinusitis J01.00 [facility] [address] [id number] [place] [address]59 Mar, Pilonidal cyst L05.91 [facility] [address] [address] Jan, Encounter for test, result unknown Z32.00 [facility] [id number] [place] [address]2052 16 Jan, 2018 Nausea R11.0 [facility] [address] [address]2376- [address] Dec, Moderate persistent asthma without complication J45.40 [facility] [id number] [place] [address] 82072- 8639 14 Dec, 2017 Dysthymia F34.1 ; Moderate persistent asthma without complication J45.40 and Anorexia R63.0 [place] [id number] [place] [address] 55952- 6355 May, Acute non-recurrent maxillary sinusitis J01.00 [place] [address] [address]- [address] 14 Dec, 2016 control counseling Z30.09 [place] [address] 81606- 6282 02 Dec, 2016 Chronic pansinusitis J32.4 [place] [address] 73708- 7807 21 Nov, 2016 [place] [address] 57[address]- 7652 14 Nov, 2016 [place] [address] [place] [address] [id number] [place] [address] 94751- 2545 13 Nov, 2016 Acute recurrent sinusitis, unspecified location J01.91 and control counseling Z30.09 [place] [id number] [place] [address] 92384- 1320 11 Oct, 2016 Acute non-recurrent sphenoidal sinusitis J01.30 ; Moderate persistent asthma without complication J45.40 and Encounter for surveillance of contraceptive pills Z30.41 [place] [id number] [place] [address] 70379- 4055 Oct, Moderate persistent asthma without complication J45.40 [place] [address] [address]- 3163 06 Oct, 2016 Encounter for contraceptive management, unspecified contraceptive encounter type Z30.9 and Moderate persistent asthma without complication J45.40 [place] [address] [place] [address] [id number] [place] [address] 62350- 5266 Aug, Well woman exam with routine gynecological exam Z01.419 [facility] [address] [address]- 9[address] Aug, Encounter for contraceptive management, unspecified contraceptive encounter type Z30.9 ; Subacute frontal sinusitis J01.10 and Insomnia, unspecified type G47.00 [facility] [address] 08483- 7614 Jul, Moderate persistent asthma without complication J45.40 [facility] [address] 9[address]27 -9010 29 Jun, 2016 Wheezing R06.2 and Mild intermittent asthma in adult without complication J45.20 [place] [address] 54805- 6659 Jun, Mild intermittent asthma without complication J45.20 and Bleeding external hemorrhoids K64.4 [facility] [address] 59[address] -4691 Jun, Allergic rhinitis, unspecified allergic rhinitis trigger, unspecified rhinitis seasonality J30.9 [facility] [place] [address] 7[address]83 [address]2981 May, Acute recurrent sinusitis, unspecified location J01.91 and Exposure to head lice Z20.7 [place] [address] 9[address]24- 6817 Jan, Reactive airway disease J45.909 and Constipation K59.00 [facility] [address] [id number] Jan, Dental examination Z01.20 [facility] [address] [address]49- 8657 24 Dec, 2015 Acute bronchitis J20.9 and Left knee pain M25.562 [place] [address] 06718- 0973 Sep, [place] [address] [place] [address]- 4605 14 Jan, 2015 [facility] [place] [facility] [address] [id number] [place] [address]- 4539 13 Jan, 2015 [facility] [place] [facility] [address] [id number] [place] [address]- 6988 31 Sep, 2014 [facility] [place] [facility] [address] [id number] [place] [address]- 5978 Sep, [facility] [place] [facility] [address] [id number] [place] [address]- 9985 Mar, [facility] [place] [facility] [address] [id number] [place] [address]- 7320 Mar, [facility] [place] [facility] [address] [id number] [place] [address]- 0393 Mar, [facility] [place] [facility] [address] [id number] [place] [address]- 8152 Mar, [facility] [place] [facility] [address] [id number] [place] [address]- 3575 Mar, [facility] [place] [facility] [address] [id number] [place] [address]- 5993 Mar, [facility] [place] [facility] [address] [facility] [id number] [place] [address]- 1890 Sep, [facility] [place] [facility] [address] [id number] [place] [address]- 1357 Sep, [facility] [place] [facility] [address] [id number] [place] [address]- 6264 Aug, [facility] [place] [facility] [address] [id number] [place] [address]- 7951 05 Aug, 2013 [facility] [place] [facility] [address] [facility] [id number] [place] [address]- 3804 19 Jun, 2013 [facility] [place] [facility] [address] [facility] [id number] [place] [address] 16 Jun, 2013 [facility] [place] [facility] [address] [id number] [place] [address]- 2167 Jun, [facility] [place] [facility] [address] [id number] [place] [address]- 0164 February, [facility] [place] [facility] [address] [id number] [place] [address]- 5733 Oct, [facility] [place] [facility] [address] [id number] [place] [address]- 2752 Sep, [facility] [place] [facility] [address] [id number] [place] [address]- 6985 Sep, [facility] [place] [facility] [address] [id number] [place] [address]- 9616 Aug, [facility] [place] [facility] [address] [id number] [place] [address]- 8626 Aug, [facility] [place] [facility] [address] [id number] [place] [address]- 3178 Aug, [facility] [place] [facility] [address] [id number] [place] [address]- 5542 Aug, [facility] [place] [facility] [address] [id number] [place] [address]- 1989 Aug, [facility] [place] [facility] [address] [id number] [place] [address]- 9923 Aug, [facility] [place] [facility] [address] [id number] [place] [address]- 1312 Aug, [facility] [place] [facility] [address] [id number] [place] [address]- 5788 Aug, [facility] [place] [facility] [address] [id number] [place] [address]- 6722 Aug, [facility] [place] [facility] [address] [id number] [place] [address]- 1196 Aug, [facility] [place] [facility] [address] [id number] [place] [address]- 9080 Jul, [facility] [place] [facility] [address] [id number] [place] [address]- 0517 Jul, [facility] [place] [facility] [address] [id number] [place] [address]- 1574 Jul, [facility] [place] [facility] [address] [id number] [place] [address]- 6409 Jul, [facility] [place] [facility] [address] [id number] [place] [address]- 0752 Jul, [facility] [place] [facility] [address] [id number] [place] [address]- 1598 Jul, [facility] [place] [facility] [address] [id number] [place] [address]- 0603 Jul, [facility] [place] [facility] [address] [id number] [place] [address]- 5822 Jul, [facility] [place] [facility] [address] [id number] [place] [address]- 5818 Jul, [facility] [place] [facility] [address] [id number] [place] [address]- 4838 Jun, [facility] [place] [facility] [address] [id number] [place] [address]- 2950 May, [facility] [place] [facility] [address] [id number] [place] [address]- 5168 Apr, [facility] [place] [facility] [address] [id number], [place] [address]- 5250 Apr, [facility] [place] [facility] [address] [id number] [place] [address]- 9601 Apr, [facility] [place] [facility] [address] [facility] [id number] [place] [address]- 7451 Mar, [facility] [place] [facility] [address] [id number] [place] [address]- 8155 Mar, [facility] [place] [facility] [address] [facility] [id number] [address] Mar, [facility] [address] [facility] [id number], [place] [address]- 4265 Mar, [facility] [address] [id number] [address] 0041 February, [facility] [address] [id number] [address]- 7299 Sep, [facility] [address] [facility] [id number], [place] [address]- 1623 Sep, [facility] [address] [facility] [id number], [place] [address]- 7234 February, IMMUNIZATIONS No Known Immunizations SOCIAL HISTORY Never Assessed REASON FOR VISIT Has a "bump" on lower back Maximiliano PLAN OF CARE Activity Details Follow Up w/ Dr. Casey Reason:pilonidal cyst removal VITAL SIGNS Height 62 in 2018-04-06 Weight 111.4 lbs 2018-04-06 Temperature 100.0 degrees Fahrenheit 2018-04-06 Heart Rate 100 bpm 2018-04-06 Respiratory Rate 22 2018-04-06 BMI 20.37 kg/m2 2018-04-06 Blood pressure systolic 100 mmHg 2018-04-06 Blood pressure diastolic 70 mmHg 2018-04-06 MEDICATIONS Medication Instructions Dosage Frequency Start Date End Date Duration Status Albuterol Sulfate HFA 108 (90 Base) MCG/ACT Inhalation every 4 hrs 2 puffs as needed 4h 26 Jun, 2016 90 days Active Zyrtec Allergy 10MG Orally Once a day Ike 1 tablet as needed 30 Active Zofran 4 MG Orally every 8 hours, PRN as directed Jan, 03 days Active Pulmicort Flexhaler 180 MCG/ACT Inhalation Twice a day 1 puff 12h 14 Dec, 2017 Active Albuterol Sulfate (2.5 MG/3ML) 0.083% Inhalation Three times a day 3 ml 8h 12 Jul, 2016 Active Qnasl 80 MCG/ACT Nasally Once a day 2 puffs in each nostril 24h Dec, 90 days Active Singulair 10 mg Orally Once a day in PM 1 tablet in the evening Jan, Active RESULTS No Results PROCEDURES No Known procedures INSTRUCTIONS MEDICATIONS ADMINISTERED No Known Medications MEDICAL (GENERAL) HISTORY Type Description Date Medical History Seasonal allergic rhinitis, unspecified allergic rhinitis trigger Surgical History Sinus surgery 05/2017 Hospitalization History childbirth x3 Hospitalization History miscarriage x1
--- OUTSIDE RECORDS SUMMARY | 2018-11-09 10:08 | XMS REPORT ---
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 Active 27882036 Problem Anxiety F41.9 Active 18614901 Problem Dysthymia F34.1 Active 12732678 Problem Insomnia, unspecified type G47.00 Active 922348041 Problem Moderate persistent asthma without complication J45.40 Active 408306653 Problem Anorexia R63.0 Active 14761841 Problem Chronic pansinusitis J32.4 Active 03954303 ALLERGIES Substance Reaction Event Type Date Status Ortho Tri-Cyclen (28) nausea Drug Allergy Jan, Active Depo-Provera Unknown Drug Allergy Jan, Active ENCOUNTERS Encounter Location Date Diagnosis [place] [address] [address] May, [place] [address] [address]- [address]01 Mar, Anxiety F41.9 ; Moderate persistent asthma without complication J45.40 and Acute non-recurrent maxillary sinusitis J01.00 [facility] [id number] [place] [address] 89976 -2608 13 Mar, 2018 Pilonidal cyst L05.91 [place] [address] 18321- 3934 Jan, Encounter for test, result unknown Z32.00 [facility] [address] [address]79 Jan, Nausea R11.0 [place] [id number] [place] [address] 57105- 3166 Dec, Moderate persistent asthma without complication J45.40 [place] [address] 97202- 2157 Dec, Dysthymia F34.1 ; Moderate persistent asthma without complication J45.40 and Anorexia R63.0 [place] [address] [address]63- 5603 May, Acute non-recurrent maxillary sinusitis J01.00 [place] [address] 31010- 4238 14 Dec, 2016 control counseling Z30.09 [place] [address] 67396- 8682 Dec, Chronic pansinusitis J32.4 [place] [address] 46789- 5307 21 Nov, 2016 [place] [address] 87250- 3361 14 Nov, 2016 [place] [address] 58624- 2660 13 Nov, 2016 Acute recurrent sinusitis, unspecified location J01.91 and control counseling Z30.09 [place] [address] [place] [address] [id number] [place] [address] 95607- 3145 Oct, Acute non-recurrent sphenoidal sinusitis J01.30 ; Moderate persistent asthma without complication J45.40 and Encounter for surveillance of contraceptive pills Z30.41 [place] [address] [place] [id number] [place] [address] 25863- 8319 Oct, Moderate persistent asthma without complication J45.40 [place] [address] [place] [address] [id number] [place] [address] 11137- 9389 06 Oct, 2016 Encounter for contraceptive management, unspecified contraceptive encounter type Z30.9 and Moderate persistent asthma without complication J45.40 [place] [address] 10532- 1652 Aug, Well woman exam with routine gynecological exam Z01.419 [place] [address] 22758- 0742 09 Aug, 2016 Encounter for contraceptive management, unspecified contraceptive encounter type Z30.9 ; Subacute frontal sinusitis J01.10 and Insomnia, unspecified type G47.00 [place] [address] 39229- 4465 Jul, Moderate persistent asthma without complication J45.40 [facility] [place] [address] 64334 -7753 29 Jun, 2016 Wheezing R06.2 and Mild intermittent asthma in adult without complication J45.20 [place] [address] [address]35- 1975 Jun, Mild intermittent asthma without complication J45.20 and Bleeding external hemorrhoids K64.4 [facility] [place] [address] 76162 -5734 09 Jun, 2016 Allergic rhinitis, unspecified allergic rhinitis trigger, unspecified rhinitis seasonality J30.9 [facility] [place] [address] 89799 -3397 May, Acute recurrent sinusitis, unspecified location J01.91 and Exposure to head lice Z20.7 [place] [address] 21410- 1002 Jan, Reactive airway disease J45.909 and Constipation K59.00 [facility] [address] [id number] Jan, Dental examination Z01.20 [place] [address] 57933- 8209 24 Dec, 2015 Acute bronchitis J20.9 and Left knee pain M25.562 [place] [address] [address]58- 2045 14 Sep, 2015 [facility] [place] [facility] [address] [id number] [place] [address]- 0247 14 Jan, 2015 [facility] [place] [facility] [address] [id number] [place] [address]- 7202 13 Jan, 2015 [facility] [place] [facility] [address] [facility] [id number] [place] [address]- 4040 31 Sep, 2014 [facility] [place] [facility] [address] [id number] [place] [address]- 6592 Sep, [facility] [place] [facility] [address] [id number] [place] [address]- 9668 Mar, [facility] [place] [facility] [address] [id number] [place] [address]- 5587 Mar, [facility] [place] [facility] [address] [id number] [place] [address]- 8277 Mar, [facility] [place] [facility] [address] [id number] [place] [address]- 9405 Mar, [facility] [place] [facility] [address] [id number] [place] [address]- 8708 Mar, [facility] [place] [facility] [address] [id number] [place] [address]- 3619 Mar, [facility] [place] [facility] [address] [id number] [place] [address]- 1187 Sep, [facility] [place] [facility] [address] [id number] [place] [address]- 0409 Sep, [facility] [place] [facility] [address] [id number] [place] [address]- 0871 Aug, [facility] [place] [facility] [address] [id number] [place] [address]- 1559 Aug, [facility] [place] [facility] [address] [id number] [place] [address]- 4462 Jun, [facility] [place] [facility] [address] [id number] [place] [address]- 0658 16 Jun, 2013 [facility] [address] [id number] [place] [address]- 6381 Jun, [facility] [address] [id number] [place] [address]- 8574 February, [facility] [address] [id number] [place] [address]- 4100 Oct, [facility] [address] [id number] [place] [address]- 3540 Sep, [facility] [address] [id number] [place] [address]- 2680 Sep, [facility] [address] [id number] [place] [address]- 2932 Aug, [facility] [address] [id number] [place] [address]- 9390 Aug, [facility] [address] [id number] [place] [address]- 4866 Aug, [facility] [address] [id number] [place] [address]- 9493 Aug, [facility] [address] [facility] [id number] [place] [address]- 7434 Aug, [facility] [address] [id number] [place] [address]- 2364 Aug, [facility] [address] [id number] [place] [address]- 5699 Aug, [facility] [place] [facility] [address] [id number] [place] [address]- 5703 Aug, [facility] [address] [id number] [place] [address]- 7076 Aug, [facility] [address] [id number] [place] [address]- 3662 Aug, [facility] [place] [facility] [address] [id number] [place] [address]- 1653 Jul, [facility] [place] [facility] [address] [id number] [place] [address]- 6106 Jul, [facility] [place] [facility] [address] [id number] [place] [address]- 4209 Jul, [facility] [place] [facility] [address] [id number] [place] [address]- 8720 Jul, [facility] [place] [facility] [address] [id number] [place] [address]- 2187 Jul, [facility] [place] [facility] [address] [id number] [place] [address]- 6776 Jul, [facility] [place] [facility] [address] [id number] [place] [address]- 2986 Jul, [facility] [place] [facility] [address] [id number] [place] [address]- 4516 Jul, [facility] [place] [facility] [address] [id number] [place] [address]- 3765 Jul, [facility] [place] [facility] [address] [id number] [place] [address]- 2152 Jun, [facility] [place] [facility] [address] [id number] [place] [address]- 9786 May, [facility] [place] [facility] [address] [id number] [place] [address]- 5050 Apr, [facility] [place] [facility] [address] [id number] [place] [address]- 8714 Apr, [facility] [place] [facility] [address] [id number] [place] [address]- 3906 Apr, [facility] [place] [facility] [address] [id number] [place] [address]- 5270 Mar, [facility] [place] [facility] [address] [id number] [place] [address]- 2646 Mar, [facility] [address] [place] [address] [id number] [address]40 Mar, [facility] [address] [id number] [address]- 1916 Mar, [facility] [address] [place] [address] [id number] [address]- 8110 February, [facility] [address] [place] [address] [id number] 3179 Sep, [facility] [address] [id number] 1772 Sep, [facility] [address] [place] [id number] 5299 February, IMMUNIZATIONS No Known Immunizations SOCIAL HISTORY Never Assessed REASON FOR VISIT Nausea/cough x 2 days, productive yellow mucous cough, worse at night, sinus congestion[facility] Activity Details Follow Up prn Reason: VITAL SIGNS Height 62 in 2018-02-07 Weight 115.0 lbs 2018-02-07 Temperature 98.8 degrees Fahrenheit 2018-02-07 Heart Rate 78 bpm 2018-02-07 Respiratory Rate 20 2018-02-07 BMI 21.03 kg/m2 2018-02-07 Blood pressure systolic 106 mmHg 2018-02-07 Blood pressure diastolic 68 mmHg 2018-02-07 MEDICATIONS Medication Instructions Dosage Frequency Start Date End Date Duration Status Qnasl 80 MCG/ACT Nasally Once a day 2 puffs in each nostril 24h 20 Dec, 2017 90 days Active Albuterol Sulfate HFA 108 (90 Base) MCG/ACT Inhalation every 4 hrs 2 puffs as needed 4h Jun, 90 days Active Pulmicort Flexhaler 180 MCG/ACT Inhalation Twice a day 1 puff 12h 14 Dec, 2017 Active Melatonin 3 MG Orally once a day 24h 09 Aug, 2016 30 day(s) Not- Taking Zyrtec Allergy 10MG Orally Once a day Ike 1 tablet as needed 30 Active Zofran 4 MG Orally every 8 hours, PRN as directed Jan, 03 days Active Albuterol Sulfate (2.5 MG/3ML) 0.083% Inhalation Three times a day 3 ml 8h 12 Jul, 2016 Active Singulair 10 mg Orally Once a day in PM 1 tablet in the evening Jan, Active Ortho Micronor 0.35 MG Orally Once a day 1 tablet 24h 14 Dec, 2016 30 day(s) Not-Taking RESULTS No Results PROCEDURES No Known procedures INSTRUCTIONS MEDICATIONS ADMINISTERED No Known Medications MEDICAL (GENERAL) HISTORY Type Description Date Medical History Seasonal allergic rhinitis, unspecified allergic rhinitis trigger Surgical History Sinus surgery 05/2017 Hospitalization History childbirth x3 Hospitalization History miscarriage x1
--- OUTSIDE RECORDS SUMMARY | 2018-11-09 10:08 | XMS REPORT ---
Author Author LUIS ALFREDO MATTHEWS Organization [facility] Address [address] [place] [address] Care Team Providers Care Director Mba Name Role Phone LUIS ALFREDO MATTHEWS Unavailable PROBLEMS Type Condition ICD9-CM Code AWE46-GK Code Onset Dates Condition Status SNOMED Code Problem Mild intermittent asthma without complication J45.20 Active 729111089 Problem Anal fistula K60.3 Active 90668151 Problem Anxiety F41.9 Active 93925307 Problem Dysthymia F34.1 Active 96271589 Problem Insomnia, unspecified type G47.00 Active 088003753 Problem Moderate persistent asthma without complication J45.40 Active 467152995 Problem Anorexia R63.0 Active 93274329 Problem Chronic pansinusitis J32.4 Active 57298737 ALLERGIES No Information ENCOUNTERS Encounter Location Date Diagnosis [place] [id number] [address] May, [address] [address] Mar, Anxiety F41.9 ; Moderate persistent asthma without complication J45.40 and Acute non-recurrent maxillary sinusitis J01.00 [facility] [address] [place] [id number] [place] [address]80 -7785 13 Mar, 2018 Pilonidal cyst L05.91 [facility] [id number] [place] [address] 35566- 1135 19 Jan, 2018 Encounter for test, result unknown Z32.00 [facility] [address] [id number] [place] [address] 47519 -4344 16 Jan, 2018 Nausea R11.0 [facility] [address] 36668- [address]67 Dec, Moderate persistent asthma without complication J45.40 [facility] [id number] [place] [address] 66544- 6435 14 Dec, 2017 Dysthymia F34.1 ; Moderate persistent asthma without complication J45.40 and Anorexia R63.0 [place] [address] [place] [id number] [place] [address] 36216- 3847 May, Acute non-recurrent maxillary sinusitis J01.00 [place] [address] 00761- 3100 14 Dec, 2016 control counseling Z30.09 [place] [address] 75218- 0744 02 Dec, 2016 Chronic pansinusitis J32.4 [place] [address] 87940- 1865 21 Nov, 2016 [place] [address] 62589- 7269 14 Nov, 2016 [place] [address] [place] [id number] [place] [address] 09343- 1350 13 Nov, 2016 Acute recurrent sinusitis, unspecified location J01.91 and control counseling Z30.09 [place] [address] [place] [id number] [place] [address] 46068- 6561 11 Oct, 2016 Acute non-recurrent sphenoidal sinusitis J01.30 ; Moderate persistent asthma without complication J45.40 and Encounter for surveillance of contraceptive pills Z30.41 [place] [address] [place] [id number] [place] [address] 65594- 1794 Oct, Moderate persistent asthma without complication J45.40 [place] [address] 10062- 8993 06 Oct, 2016 Encounter for contraceptive management, unspecified contraceptive encounter type Z30.9 and Moderate persistent asthma without complication J45.40 [place] [address] [place] [id number] [place] [address] 46126- 5267 Aug, Well woman exam with routine gynecological exam Z01.419 [facility] [address] 58[address]- 7153 09 Aug, 2016 Encounter for contraceptive management, unspecified contraceptive encounter type Z30.9 ; Subacute frontal sinusitis J01.10 and Insomnia, unspecified type G47.00 [facility] [address] 42[address]- 3527 Jul, Moderate persistent asthma without complication J45.40 [facility] [address] 25637 -1776 29 Jun, 2016 Wheezing R06.2 and Mild intermittent asthma in adult without complication J45.20 [place] [address] 58803- 0966 Jun, Mild intermittent asthma without complication J45.20 and Bleeding external hemorrhoids K64.4 [facility] [address] 31519 -5417 Jun, Allergic rhinitis, unspecified allergic rhinitis trigger, unspecified rhinitis seasonality J30.9 [facility] [address] 29[address]0733 May, Acute recurrent sinusitis, unspecified location J01.91 and Exposure to head lice Z20.[address] [address]26- [address]83 Jan, Reactive airway disease J45.909 and Constipation K59.00 [facility] [address] [id number] Jan, Dental examination Z01.20 [facility] [address] 41637- 7452 24 Dec, 2015 Acute bronchitis J20.9 and Left knee pain M25.562 [place] [address] 75543- 9168 Sep, [place] [address] [place] [address] 9[address] 14 Jan, 2015 [facility] [place] [facility] [address] [id number] [place] [address]- 4215 13 Jan, 2015 [facility] [place] [facility] [address] [id number] [place] [address]- 6385 31 Sep, 2014 [facility] [place] [facility] [address] [id number] [place] [address]- 6232 Sep, [facility] [place] [facility] [address] [id number] [place] [address]- 8897 Mar, [facility] [place] [facility] [address] [id number] [place] [address]- 1090 Mar, [facility] [place] [facility] [address] [id number] [place] [address]- 4144 Mar, [facility] [place] [facility] [address] [id number] [place] [address]- 2100 Mar, [facility] [place] [facility] [address] [id number] [place] [address]- 0520 Mar, [facility] [place] [facility] [address] [id number] [place] [address]- 8024 Mar, [facility] [place] [facility] [address] [facility] [id number] [place] [address]- 8308 Sep, [facility] [place] [facility] [address] [id number] [place] [address]- 8659 Sep, [facility] [place] [facility] [address] [id number] [place] [address]- 6939 Aug, [facility] [place] [facility] [address] [id number] [place] [address]- 8196 05 Aug, 2013 [facility] [place] [facility] [address] [id number] [place] [address]- 8321 19 Jun, 2013 [facility] [place] [facility] [address] [id number] [place] [address]- 2081 16 Jun, 2013 [facility] [place] [facility] [address] [id number] [place] [address]- 8183 Jun, [facility] [place] [facility] [address] [id number] [place] [address]- 3730 February, [facility] [place] [facility] [address] [id number] [place] [address]- 7890 Oct, [facility] [place] [facility] [address] [id number] [place] [address]- 2166 Sep, [facility] [place] [facility] [address] [id number] [place] [address]- 9864 Sep, [facility] [place] [facility] [address] [id number] [place] [address]- 1018 Aug, [facility] [place] [facility] [address] [id number] [place] [address]- 1826 Aug, [facility] [place] [facility] [address] [id number] [place] [address]- 8969 Aug, [facility] [place] [facility] [address] [id number] [place] [address]- 8694 Aug, [facility] [place] [facility] [address] [id number] [place] [address]- 4032 Aug, [facility] [place] [facility] [address] [id number] [place] [address]- 4364 Aug, [facility] [place] [facility] [address] [id number] [place] [address]- 2844 Aug, [facility] [place] [facility] [address] [id number] [place] [address]- 6458 Aug, [facility] [place] [facility] [address] [id number] [place] [address]- 3311 Aug, [facility] [place] [facility] [address] [id number] [place] [address]- 3401 Aug, [facility] [place] [facility] [address] [id number] [place] [address]- 4226 Jul, [facility] [place] [facility] [address] [id number] [place] [address]- 5213 Jul, [facility] [place] [facility] [address] [id number] [place] [address]- 1185 Jul, [facility] [place] [facility] [address] [id number] [place] [address]- 8463 Jul, [facility] [place] [facility] [address] [id number] [place] [address]- 8262 Jul, [facility] [place] [facility] [address] [id number] [place] [address]- 9918 Jul, [facility] [place] [facility] [address] [id number] [place] [address]- 5778 Jul, [facility] [place] [facility] [address] [id number] [place] [address]- 2279 Jul, [facility] [place] [facility] [address] [id number] [place] [address]- 0199 Jul, [facility] [place] [facility] [address] [id number] [place] [address]- 1389 Jun, [facility] [place] [facility] [address] [id number] [place] [address]- 8648 May, [facility] [place] [facility] [address] [id number] [place] [address]- 8804 Apr, [facility] [place] [facility] [address] [id number] [address]- 7656 Apr, [facility] [place] [facility] [address] [id number] [place] [address]- 6227 Apr, [facility] [place] [facility] [address] [facility] [id number] [place] [address]- 0279 Mar, [facility] [place] [facility] [address] [id number] [place] [address]- 9517 Mar, [facility] [place] [facility] [address] [id number] [address]- 5286 Mar, [facility] [address] [place] [address] [id number] [address] 76[address] Mar, [facility] [address] 34[address] February, [facility] [address] [address]30 Sep, [facility] [address] [address]- 3389 Sep, [facility] [address] [address]- 1867 February, IMMUNIZATIONS No Known Immunizations SOCIAL HISTORY Never Assessed REASON FOR VISIT test (walk-in) PLAN OF CARE VITAL SIGNS MEDICATIONS Unknown Medications RESULTS Name Result Date Reference Range TEST, URINE (IN HOUSE) 2018-02-10 RESULTS Negative Lot # [id number] Control + Exp date 04/2019 PROCEDURES Procedure Date Ordered Result Body Site URINE TEST February 10, 2018 INSTRUCTIONS MEDICATIONS ADMINISTERED No Known Medications MEDICAL (GENERAL) HISTORY Type Description Date Medical History Seasonal allergic rhinitis, unspecified allergic rhinitis trigger Surgical History Sinus surgery 05/2017 Hospitalization History childbirth x3 Hospitalization History miscarriage x1
--- OUTSIDE RECORDS SUMMARY | 2018-11-09 10:08 | XMS REPORT ---
Author Author LUIS ALFREDO MATTHEWS Organization 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 [address] [place] [id number] [place] [address] 47071- 9775 May, [facility] [address] [place] [id number] [place] [address] 99478- 7631 Mar, Anxiety F41.9 ; Moderate persistent asthma without complication J45.40 and Acute non-recurrent maxillary sinusitis J01.00 [facility] [address] [id number] [place] [address] 25686 -2629 13 Mar, 2018 Pilonidal cyst L05.91 [facility] [address] [address]- [address] Jan, Encounter for test, result unknown Z32.00 [facility] [address] [id number] [place] [address] 76914 -9256 Jan, Nausea R11.0 [place] [address] [place] [id number] [place] [address] 64058- 7810 Dec, Moderate persistent asthma without complication J45.40 [place] [address] [place] [id number] [place] [address] Dec, Dysthymia F34.1 ; Moderate persistent asthma without complication J45.40 and Anorexia R63.0 [place] [address] 91348- 5662 May, Acute non-recurrent maxillary sinusitis J01.00 [place] [address] 399410- 0488 14 Dec, 2016 control counseling Z30.09 [place] [address] 98300- 8917 02 Dec, 2016 Chronic pansinusitis J32.4 [place] [address] 98506- 0193 21 Nov, 2016 [place] [address] 95158- 7307 14 Nov, 2016 [place] [address] 50797- 3563 13 Nov, 2016 Acute recurrent sinusitis, unspecified location J01.91 and control counseling Z30.09 [place] [address] [place] [id number] [place] [address] 76916- 7127 11 Oct, 2016 Acute non-recurrent sphenoidal sinusitis J01.30 ; Moderate persistent asthma without complication J45.40 and Encounter for surveillance of contraceptive pills Z30.41 [place] [address] 43051- 5784 10 Oct, 2016 Moderate persistent asthma without complication J45.40 [place] [address] [place] [id number] [place] [address] 98285- 7915 06 Oct, 2016 Encounter for contraceptive management, unspecified contraceptive encounter type Z30.9 and Moderate persistent asthma without complication J45.40 [facility] [address] [place] [id number] [place] [address] 63967- 5792 Aug, Well woman exam with routine gynecological exam Z01.419 [place] [address] 03705- 6680 09 Aug, 2016 Encounter for contraceptive management, unspecified contraceptive encounter type Z30.9 ; Subacute frontal sinusitis J01.10 and Insomnia, unspecified type G47.00 [place] [address] 16413- 2421 Jul, Moderate persistent asthma without complication J45.40 [facility] [address] 90240 -3482 29 Jun, 2016 Wheezing R06.2 and Mild intermittent asthma in adult without complication J45.20 [place] [address] 78140- 4545 Jun, Mild intermittent asthma without complication J45.20 and Bleeding external hemorrhoids K64.4 [facility] [address] 50008 -1497 Jun, Allergic rhinitis, unspecified allergic rhinitis trigger, unspecified rhinitis seasonality J30.9 [facility] [place] [address] 58096 -0396 May, Acute recurrent sinusitis, unspecified location J01.91 and Exposure to head lice Z20.7 [place] [address] [place] [id number] [place] [address] 60716- 6961 Jan, Reactive airway disease J45.909 and Constipation K59.00 [facility] [address] [id number] Jan, Dental examination Z01.20 [facility] [address] 82887- 0813 24 Dec, 2015 Acute bronchitis J20.9 and Left knee pain M25.562 [place] [address] [place] [address]- 9769 14 Sep, 2015 [facility] [place] [facility] [address] [id number] [place] [address]- 0674 14 Jan, 2015 [facility] [place] [facility] [address] [id number] [place] [address]- 6680 13 Jan, 2015 [facility] [place] [facility] [address] [id number] [place] [address]- 6032 31 Sep, 2014 [facility] [place] [facility] [address] [id number] [place] [address]- 4916 Sep, [facility] [place] [facility] [address] [id number] [place] [address]- 5599 Mar, [facility] [place] [facility] [address] [id number] [place] [address]- 8590 Mar, [facility] [place] [facility] [address] [id number] [place] [address]- 6164 Mar, [facility] [place] [facility] [address] [id number] [place] [address]- 7213 24 Mar, 2014 [facility] [place] [facility] [address] [id number] [place] [address]- 8243 Mar, [facility] [place] [facility] [address] [facility] [id number] [place] [address]- 4791 Mar, [facility] [place] [facility] [address] [id number] [place] [address]- 2887 Sep, [facility] [place] [facility] [address] [id number] [place] [address]- 3166 Sep, [facility] [place] [facility] [address] [id number] [place] 1067 Aug, [facility] [place] [facility] [address] [id number] [place] [address]- 5832 Aug, [facility] [place] [facility] [address] [id number] [place] 4146 Jun, [facility] [place] [facility] [address] [id number] [place] [address]- 1848 16 Jun, 2013 [facility] [place] [facility] [address] [id number] [place] [address]- 5929 Jun, [facility] [place] [facility] [address] [id number] [place] [address]- 1716 February, [facility] [address] [id number] [place] [address]- 4671 Oct, [facility] [address] [id number] [place] [address]- 3902 Sep, [facility] [address] [id number] [place] [address]- 7474 Sep, [facility] [address] [id number] [place] [address]- 0056 Aug, [facility] [address] [id number] [place] [address]- 8119 Aug, [facility] [address] [id number] [place] [address]- 7362 Aug, [facility] [address] [id number] [place] [address]- 6637 Aug, [facility] [place] [facility] [address] [id number] [place] [address]- 4215 Aug, [facility] [place] [facility] [address] [id number] [place] [address]- 7186 Aug, [facility] [place] [facility] [address] [id number] [place] [address]- 9874 Aug, [facility] [place] [facility] [address] [id number] [place] [address]- 6038 Aug, [facility] [place] [facility] [address] [id number] [place] [address]- 9703 Aug, [facility] [place] [facility] [address] [id number] [place] [address]- 2546 Aug, [facility] [place] [facility] [address] [id number] [place] [address]- 2285 Jul, [facility] [place] [facility] [address] [id number] [place] [address]- 0846 Jul, [facility] [place] [facility] [address] [id number] [place] [address]- 9865 Jul, [facility] [place] [facility] [address] [id number] [place] [address]- 6940 Jul, [facility] [place] [facility] [address] [id number] [place] 3083 Jul, [facility] [place] [facility] [address] [id number] [place] 4966 Jul, [facility] [place] [facility] [address] [id number] [place] [address]- 0655 Jul, [facility] [place] [facility] [address] [id number] [place] [address]- 7011 Jul, [facility] [place] [facility] [address] [id number] [place] 1919 Jul, [facility] [place] [facility] [address] [id number] [place] [address]- 3750 Jun, [facility] [place] [facility] [address] [id number] [place] [address]- 0928 May, [facility] [place] [facility] [address] [id number] [place] [address]- 6801 Apr, [facility] [place] [facility] [address] [id number] [place] [address]- 7663 Apr, [facility] [place] [facility] [address] [id number] [place] [address]- 8554 Apr, [facility] [place] [facility] [address] [id number] [place] [address]- 8551 Mar, [facility] [place] [facility] [address] [id number] [address] [address]87 28 Mar, 2012 [facility] [address] [address]- 1786 Mar, [facility] [address] [address]- 2020 Mar, [facility] [address] [address]- 8480 February, [facility] [address] [address]- 3942 Sep, [facility] [address] [place] [address] 29691- 0144 Sep, [facility] [address] [address]- 2904 February, IMMUNIZATIONS No Known Immunizations SOCIAL HISTORY Never Assessed REASON FOR VISIT possible Thyroid problems, always tired, no weight gain, tightness around throat , PT just feels off[place] [facility] PLAN OF CARE Activity Details Follow Up 4 Weeks Reason:asthma VITAL SIGNS Height 62 in 2018-01-05 Weight 109.5 lbs 2018-01-05 Temperature 98.0 degrees Fahrenheit 2018-01-05 Heart Rate 85 bpm 2018-01-05 Respiratory Rate 20 2018-01-05 Oximetry 99 % 2018-01-05 BMI 20.03 kg/m2 2018-01-05 Blood pressure systolic 98 mmHg 2018-01-05 Blood pressure diastolic 62 mmHg 2018-01-05 MEDICATIONS Medication Instructions Dosage Frequency Start Date End Date Duration Status Melatonin 3 MG Orally once a day 24h Aug, 30 day(s) Not- Taking Albuterol Sulfate HFA 108 (90 Base) MCG/ACT Inhalation every 4 hrs 2 puffs as needed 4h 26 Jun, 2016 90 days Active Singulair 10 mg Orally Once a day in PM 1 tablet in the evening Jan, Active Beclomethasone Diprop Monohyd 42 MCG/SPRAY Nasally Twice a day 2 puff in each nostril 12h Dec, 30 day(s) Active Albuterol Sulfate (2.5 MG/3ML) 0.083% Inhalation Three times a day 3 ml 8h 12 Jul, 2016 Active Ortho Micronor 0.35 MG Orally Once a day 1 tablet 24h Dec, 30 day(s) Not-Taking Zyrtec Allergy 10MG Orally Once a day Ike 1 tablet as needed 30 Active Pulmicort Flexhaler 180 MCG/ACT Inhalation Twice a day 1 puff 12h Dec, Active RESULTS No Results PROCEDURES Procedure Date Ordered Result Body Site [facility] January 05, 2018 INSTRUCTIONS MEDICATIONS ADMINISTERED No Known Medications MEDICAL (GENERAL) HISTORY Type Description Date Medical History Seasonal allergic rhinitis, unspecified allergic rhinitis trigger Surgical History Sinus surgery 05/2017 Hospitalization History childbirth x3 Hospitalization History miscarriage x1
--- OUTSIDE RECORDS SUMMARY | 2018-11-09 10:09 | XMS REPORT ---
Author Author LUIS ALFREDO MATTHEWS [facility] Address [address] [place] [address] Care Team Providers Care Civil Cadd Technician Name Role Phone LUIS ALFREDO MATTHEWS Unavailable PROBLEMS Type Condition ICD9-CM Code [id number] Code Onset Dates Condition Status SNOMED Code Problem Chronic pansinusitis J32.4 Active 54534131 Problem Insomnia, unspecified type G47.00 Active 673050029 Problem Anxiety state, unspecified 300.00 Active 367409797 Problem Depressive disorder, not elsewhere classified 311 Active 49680473 Problem Moderate persistent asthma without complication J45.40 Active 901534323 Problem Mild intermittent asthma without complication J45.20 Active 902811973 ALLERGIES Substance Reaction Event Type Date Status N.K.D.A. Unknown Non Drug Allergy Oct, Unknown SOCIAL HISTORY No smoking Hx information available PLAN OF CARE Activity Details Follow Up 6 Months Reason:asthma VITAL SIGNS Height 62 in 2016-11-04 Weight 114.8 lbs 2016-11-04 Temperature 98.1 degrees Fahrenheit 2016-11-04 Heart Rate 96 bpm 2016-11-04 Respiratory Rate 18 2016-11-04 Oximetry 99 % 2016-11-04 BMI 20.99 kg/m2 2016-11-04 Blood pressure systolic 108 mmHg 2016-11-04 Blood pressure diastolic 78 mmHg 2016-11-04 MEDICATIONS Medication Instructions Dosage Frequency Start Date End Date Duration Status Levaquin 500 MG Orally Once a day 1 tablet 24h Oct, Oct, 14 days Active Ortho Tri-Cyclen (28) 0.18/0.215/0.25 MG-35 MCG Orally Once a day 1 tablet 24h Oct, 28 day(s) Active Albuterol Sulfate HFA 108 (90 Base) MCG/ACT Inhalation every 4 hrs 2 puffs as needed 4h Jun, 30 days Active Breo Ellipta 100-25 MCG/INH Inhalation Once a day 1 puff 24h Jul, May, 30 days Active Albuterol Sulfate (2.5 MG/3ML) 0.083% Inhalation Three times a day 3 ml 8h 12 Jul, 2016 Active Flonase Allergy Relief 50 MCG/ACT Nasally twice a day 1 spray in each nostril 12h Jan, Active Singulair 10 mg Orally Once a day in PM 1 tablet in the evening Jan, Active Zyrtec Allergy 10 mg Orally Once a day Ike 1 tablet as needed Jan, Active RESULTS No Results PROCEDURES Procedure Date Ordered Related Diagnosis Body Site MEASURE BLOOD OXYGEN LEVEL Nov 04, 2016 Office Visit, Est Pt., Level 3 Nov 04, 2016 IMMUNIZATIONS No Known Immunizations
--- OUTSIDE RECORDS SUMMARY | 2018-11-09 10:09 | XMS REPORT ---
Author Author LUIS ALFREDO MATTHEWS [facility] Address [address] [place] [address] Care Team Providers Care Supervisor Motorcycle [employer] Name Role Phone LUIS ALFREDO MATTHEWS Unavailable PROBLEMS Type Condition ICD9-CM Code [id number] Code Onset Dates Condition Status SNOMED Code Problem Chronic pansinusitis J32.4 Active 66726244 Problem Insomnia, unspecified type G47.00 Active 119019848 Problem Anxiety state, unspecified 300.00 Active 384581102 Problem Depressive disorder, not elsewhere classified 311 Active 45730643 Problem Moderate persistent asthma without complication J45.40 Active 542510195 Problem Mild intermittent asthma without complication J45.20 Active 890601039 ALLERGIES Unknown Allergies SOCIAL HISTORY No smoking Hx information available PLAN OF CARE VITAL SIGNS MEDICATIONS Medication Instructions Dosage Frequency Start Date End Date Duration Status Advair Diskus 250-50 MCG/DOSE Inhalation Twice a day 1 puff 12h 11 Oct, 2016 30 days Active RESULTS No Results PROCEDURES No Known procedures IMMUNIZATIONS No Known Immunizations
--- OUTSIDE RECORDS SUMMARY | 2018-11-09 10:09 | XMS REPORT ---
Author Author LUIS ALFREDO MATTHEWS [facility] Address [address] [place] [address] Care Team Providers Care Pulverizing And Sifting Operator Name Role Phone LUIS ALFREDO MATTHEWS Unavailable PROBLEMS Type Condition ICD9-CM Code BOW33-MH Code Onset Dates Condition Status SNOMED Code Problem Chronic pansinusitis J32.4 Active 24199718 Problem Insomnia, unspecified type G47.00 Active 165343369 Problem Anxiety state, unspecified 300.00 Active 587940959 Problem Depressive disorder, not elsewhere classified 311 Active 26927343 Problem Moderate persistent asthma without complication J45.40 Active 596532432 Problem Mild intermittent asthma without complication J45.20 Active 577358124 ALLERGIES No Known Allergies SOCIAL HISTORY Never Assessed PLAN OF CARE Activity Details Follow Up prn Reason: VITAL SIGNS Height 62 in 2016-12-24 Weight 115.9 lbs 2016-12-24 Temperature 97.7 degrees Fahrenheit 2016-12-24 Heart Rate 102 bpm 2016-12-24 Respiratory Rate 18 2016-12-24 BMI 21.20 kg/m2 2016-12-24 Blood pressure systolic 108 mmHg 2016-12-24 Blood pressure diastolic 72 mmHg 2016-12-24 MEDICATIONS Medication Instructions Dosage Frequency Start Date End Date Duration Status Albuterol Sulfate (2.5 MG/3ML) 0.083% Inhalation Three times a day 3 ml 8h 12 Jul, 2016 Active Singulair 10 mg Orally Once a day in PM 1 tablet in the evening Jan, Active Albuterol Sulfate HFA 108 (90 Base) MCG/ACT Inhalation every 4 hrs 2 puffs as needed 4h Jun, 30 days Active Flonase Allergy Relief 50 MCG/ACT Nasally twice a day 1 spray in each nostril 12h Jan, Active Ortho Tri-Cyclen (28) 0.18/0.215/0.25 MG-35 MCG Orally Once a day 1 tablet 24h Oct, 28 day(s) Active Zyrtec Allergy 10 mg Orally Once a day Ike 1 tablet as needed Jan, Active RESULTS No Results PROCEDURES No Known procedures IMMUNIZATIONS No Known Immunizations MEDICAL (GENERAL) HISTORY Type Description Date Medical History Seasonal allergic rhinitis, unspecified allergic rhinitis trigger Surgical History Sinus surgery 05/2017 Hospitalization History childbirth x3 Hospitalization History miscarriage x1
--- OUTSIDE RECORDS SUMMARY | 2018-11-09 10:09 | XMS REPORT ---
Author Author LUIS ALFREDO MATTHEWS [facility] Address [address] [place] [address] Care Team Providers Care Plaster Helper Name Role Phone LUIS ALFREDO MATTHEWS Unavailable PROBLEMS Type Condition ICD9-CM Code PMT12-ZN Code Onset Dates Condition Status SNOMED Code Problem Chronic pansinusitis J32.4 Active 00838126 Problem Insomnia, unspecified type G47.00 Active 740386644 Problem Anxiety state, unspecified 300.00 Active 786090141 Problem Depressive disorder, not elsewhere classified 311 Active 33270437 Problem Moderate persistent asthma without complication J45.40 Active 827027847 Problem Mild intermittent asthma without complication J45.20 Active 935586920 ALLERGIES No Information SOCIAL HISTORY Never Assessed PLAN OF CARE VITAL SIGNS MEDICATIONS Unknown Medications RESULTS No Results PROCEDURES No Known procedures IMMUNIZATIONS No Known Immunizations MEDICAL (GENERAL) HISTORY Type Description Date Medical History Seasonal allergic rhinitis, unspecified allergic rhinitis trigger Surgical History Sinus surgery 05/2017 Hospitalization History childbirth x3 Hospitalization History miscarriage x1
--- OUTSIDE RECORDS SUMMARY | 2018-11-09 10:09 | XMS REPORT ---
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 Active 22152073 Problem Anxiety F41.9 Active 04509101 Problem Dysthymia F34.1 Active 26760694 Problem Insomnia, unspecified type G47.00 Active 042197857 Problem Moderate persistent asthma without complication J45.40 Active 772641076 Problem Anorexia R63.0 Active 49699909 Problem Chronic pansinusitis J32.4 Active 08714322 ALLERGIES No Information ENCOUNTERS Encounter Location Date Diagnosis [place] [id number] [place] [address] May, [facility] [id number] [place] [address] Apr, [facility] [id number] [place] [address] Mar, Anxiety F41.9 ; Moderate persistent asthma without complication J45.40 and Acute non-recurrent maxillary sinusitis J01.00 [facility] [id number] [place] [address] 13 Mar, 2018 Pilonidal cyst L05.91 [facility] [address] [address] Jan, Encounter for test, result unknown Z32.00 [facility] [id number] [place] [address] 16 Jan, 2018 Nausea R11.0 [place] [id number] [place] [address] Dec, Moderate persistent asthma without complication J45.40 [place] [address] [address] Dec, Dysthymia F34.1 ; Moderate persistent asthma without complication J45.40 and Anorexia R63.0 [place] [address] [address] May, Acute non-recurrent maxillary sinusitis J01.00 [place] [address] 602343- [address] 14 Dec, 2016 control counseling Z30.09 [place] [address] [address] 02 Dec, 2016 Chronic pansinusitis J32.4 [place] [address] [address] 21 Nov, 2016 [place] [address] [address] 14 Nov, 2016 [place] [address] [address] 13 Nov, 2016 Acute recurrent sinusitis, unspecified location J01.91 and control counseling Z30.09 [place] [address] [address] 11 Oct, 2016 Acute non-recurrent sphenoidal sinusitis J01.30 ; Moderate persistent asthma without complication J45.40 and Encounter for surveillance of contraceptive pills Z30.41 [place] [address] [address] 10 Oct, 2016 Moderate persistent asthma without complication J45.40 [place] [address] [address] 06 Oct, 2016 Encounter for contraceptive management, unspecified contraceptive encounter type Z30.9 and Moderate persistent asthma without complication J45.40 [facility] [address] [address] Aug, Well woman exam with routine gynecological exam Z01.419 [place] [address] [address] 09 Aug, 2016 Encounter for contraceptive management, unspecified contraceptive encounter type Z30.9 ; Subacute frontal sinusitis J01.10 and Insomnia, unspecified type G47.00 [place] [address] [address] Jul, Moderate persistent asthma without complication J45.40 [facility] [address] [address] 29 Jun, 2016 Wheezing R06.2 and Mild intermittent asthma in adult without complication J45.20 [place] [address] [address] Jun, Mild intermittent asthma without complication J45.20 and Bleeding external hemorrhoids K64.4 [facility] [address] [address] Jun, Allergic rhinitis, unspecified allergic rhinitis trigger, unspecified rhinitis seasonality J30.9 [facility] [place] [address] [address] May, Acute recurrent sinusitis, unspecified location J01.91 and Exposure to head lice Z20.7 [place] [address] [address] Jan, Reactive airway disease J45.[address] [facility] [address] [id number] Jan, Dental examination Z01.20 [facility] [address] [address] 24 Dec, 2015 Acute bronchitis J20.9 and Left knee pain M25.562 [place] [address] [place] [address] 14 Sep, 2015 [facility] [place] [facility] [address] [id number] [place] [address] 14 Jan, 2015 [facility] [place] [facility] [address] [id number] [place] [address] 2807 13 Jan, 2015 [facility] [place] [facility] [address] [id number] [place] [address]602 31 Sep, 2014 [facility] [place] [facility] [address] [id number] [place] [address] 0345 31 Sep, 2014 [facility] [place] [facility] [address] [id number] [place] [address] 4269 Mar, [facility] [place] [facility] [address] [id number] [place] [address] 5671 Mar, [facility] [place] [facility] [address] [id number] [place] [address] 62[address] Mar, [facility] [place] [facility] [address] [id number] [place] [address] 2720 24 Mar, 2014 [facility] [place] [facility] [address] [id number] [place] [address] 47[address] Mar, [facility] [place] [facility] [address] [facility] [id number] [place] [address] Mar, [facility] [place] [facility] [address] [id number] [place] [address] 2166 Sep, [facility] [place] [facility] [address] [id number] [place] [address]- 4[address] Sep, [facility] [place] [facility] [address] [id number] [place] [address]- 3[address] 05 Aug, 2013 [facility] [place] [facility] [address] [id number] [place] [address]- 3007 05 Aug, 2013 [facility] [place] [facility] [address] [id number] [place] [address]- 7347 Jun, [facility] [place] [facility] [address] [id number] [place] [address]- 8778 16 Jun, 2013 [facility] [place] [facility] [address] [id number] [place] [address]- 5231 Jun, [facility] [place] [facility] [address] [id number] [place] [address] February, [facility] [place] [facility] [address] [id number] [place] [address]- 4690 Oct, [facility] [place] [facility] [address] [id number] [place] [address]- 59[address] Sep, [facility] [place] [facility] [address] [id number] [place] [address]- 5273 Sep, [facility] [place] [facility] [address] [id number] [place] [address]- 3411 Aug, [facility] [place] [facility] [address] [id number] [place] [address]- 0[address] Aug, [facility] [place] [facility] [address] [id number] [place] [address]- 9764 Aug, [facility] [place] [facility] [address] [id number] [place] [address]- 8161 Aug, [facility] [place] [facility] [address] [id number] [place] [address]- 4[address] Aug, [facility] [place] [facility] [address] [id number] [place] [address]- 6046 Aug, [facility] [place] [facility] [address] [id number] [place] [address]- 0282 Aug, [facility] [place] [facility] [address] [id number] [place] [address]- 2609 Aug, [facility] [place] [facility] [address] [id number] [place] [address]- 3987 Aug, [facility] [place] [facility] [address] [id number] [place] [address]- 7096 Aug, [facility] [place] [facility] [address] [id number] [place] [address] Jul, [facility] [place] [facility] [address] [id number] [place] [address]- 3249 Jul, [facility] [place] [facility] [address] [id number] [place] [address]- 7436 Jul, [facility] [place] [facility] [address] [id number] [place] [address]- 8516 Jul, [facility] [place] [facility] [address] [id number] [place] [address] Jul, [facility] [place] [facility] [address] [id number] [place] [address] Jul, [facility] [place] [facility] [address] [id number] [place] [address]- 5161 Jul, [facility] [place] [facility] [address] [id number] [place] [address]- 6[address] Jul, [facility] [place] [facility] [address] [id number] [place] [address]- 5728 Jul, [facility] [place] [facility] [address] [id number] [place] [address]- 4950 Jun, [facility] [place] [facility] [address] [id number] [place] [address]- 7483 May, [facility] [place] [facility] [address] [id number] [place] [address]- 7056 Apr, [facility] [place] [facility] [address] [id number] [place] [address]- 4997 Apr, [facility] [place] [facility] [address] [id number] [place] [address]- 7962 Apr, [facility] [place] [facility] [address] [id number] [place] [address]- 8844 Mar, [facility] [place] [facility] [id number] [address] 28 Mar, 2012 [facility] [address] [address] Mar, [facility] [id number] [address] Mar, [facility] [address] [address] February, [facility] [address] [address] Sep, [facility] [address] [address] Sep, [facility] [address] [address] February, IMMUNIZATIONS No Known Immunizations SOCIAL HISTORY Never Assessed REASON FOR VISIT Medication Change PLAN OF CARE VITAL SIGNS MEDICATIONS Medication Instructions Dosage Frequency Start Date End Date Duration Status Qnasl 80 MCG/ACT Nasally Once a day 2 puffs in each nostril 24h Dec, 90 days Active RESULTS No Results PROCEDURES No Known procedures INSTRUCTIONS MEDICATIONS ADMINISTERED No Known Medications MEDICAL (GENERAL) HISTORY Type Description Date Medical History Seasonal allergic rhinitis, unspecified allergic rhinitis trigger Surgical History Sinus surgery 05/2017 Hospitalization History childbirth x3 Hospitalization History miscarriage x1
--- OUTSIDE RECORDS SUMMARY | 2018-11-09 10:09 | XMS REPORT ---
Author Author LUIS ALFREDO MATTHEWS Organization [facility] Address [address] [place] [address] Care Team Providers Care Exterminator Helper Termite Name Role Phone LUIS ALFREDO MATTHEWS Unavailable PROBLEMS Type Condition ICD9-CM Code EFV95-GV Code Onset Dates Condition Status SNOMED Code Problem Chronic pansinusitis J32.4 Active 30460510 Problem Insomnia, unspecified type G47.00 Active 383079634 Problem Anxiety state, unspecified 300.00 Active 562267319 Problem Depressive disorder, not elsewhere classified 311 Active 28449534 Problem Moderate persistent asthma without complication J45.40 Active 790473545 Problem Mild intermittent asthma without complication J45.20 Active 774312581 ALLERGIES Unknown Allergies SOCIAL HISTORY No smoking Hx information available PLAN OF CARE VITAL SIGNS MEDICATIONS Medication Instructions Dosage Frequency Start Date End Date Duration Status Ortho-Cyclen (28) 0.25-35 MG-MCG Orally Once a day 1 tablet 24h Aug, Active Albuterol Sulfate HFA 108 (90 Base) MCG/ACT Inhalation every 4 hrs 2 puffs as needed 4h 26 Jun, 2016 30 days Active Breo Ellipta 100-25 MCG/INH Inhalation Once a day 1 puff 24h Jul, 30 days Active RESULTS No Results PROCEDURES No Known procedures IMMUNIZATIONS No Known Immunizations
--- OUTSIDE RECORDS SUMMARY | 2018-11-09 10:09 | XMS REPORT ---
Author Author LUIS ALFREDO MATTHEWS [facility] Address [address] [place] [address] Care Team Providers Care Refractory Technician Name Role Phone LUIS ALFREDO MATTHEWS Unavailable PROBLEMS Type Condition ICD9-CM Code HBN98-BI Code Onset Dates Condition Status SNOMED Code Problem Chronic pansinusitis J32.4 Active 16475906 Problem Insomnia, unspecified type G47.00 Active 461657453 Problem Anxiety state, unspecified 300.00 Active 357087810 Problem Depressive disorder, not elsewhere classified 311 Active 33715228 Problem Moderate persistent asthma without complication J45.40 Active 610788983 Problem Mild intermittent asthma without complication J45.20 Active 615813855 ALLERGIES No Known Allergies SOCIAL HISTORY Never Assessed PLAN OF CARE Activity Details Follow Up prn Reason: VITAL SIGNS Height 62 in 2016-12-07 Weight 114 lbs 2016-12-07 Heart Rate 79 bpm 2016-12-07 Respiratory Rate 16 2016-12-07 Oximetry on room air:99 % 2016-12-07 BMI 20.85 kg/m2 2016-12-07 Blood pressure systolic 110 mmHg 2016-12-07 Blood pressure diastolic 76 mmHg 2016-12-07 MEDICATIONS Medication Instructions Dosage Frequency Start Date End Date Duration Status Zyrtec Allergy 10 mg Orally Once a day Ike 1 tablet as needed Jan, Active Albuterol Sulfate (2.5 MG/3ML) 0.083% Inhalation Three times a day 3 ml 8h 12 Jul, 2016 Active Flonase Allergy Relief 50 MCG/ACT Nasally twice a day 1 spray in each nostril 12h Jan, Active Singulair 10 mg Orally Once a day in PM 1 tablet in the evening Jan, Active Ortho Tri-Cyclen (28) 0.18/0.215/0.25 MG-35 MCG Orally Once a day 1 tablet 24h Oct, 28 day(s) Active Albuterol Sulfate HFA 108 (90 Base) MCG/ACT Inhalation every 4 hrs 2 puffs as needed 4h 26 Jun, 2016 30 days Active RESULTS Name Result Date Reference Range CT Scan : Sinus w/o Contrast 2016-12-09 PROCEDURES Procedure Date Ordered Result Body Site MEASURE BLOOD OXYGEN LEVEL Dec 07, 2016 IMMUNIZATIONS No Known Immunizations MEDICAL (GENERAL) HISTORY Type Description Date Medical History Seasonal allergic rhinitis, unspecified allergic rhinitis trigger Surgical History Sinus surgery 05/2017 Hospitalization History childbirth x3 Hospitalization History miscarriage x1
--- OUTSIDE RECORDS SUMMARY | 2018-11-09 10:10 | XMS REPORT | Continuity of Care Document ---
Author Author [facility] of [facility] [place] Address Unknown Phone Unavailable Allergies Active Description Code Type Severity Reaction Onset Reported/Identified Relationship to Patient Clinical Status Yes NKANo Known Allergies NKA Miscellaneous Allergy Unknown N/A 07/26/2006 Yes No Known Drug Allergies [id number] Drug Allergy Unknown N/A 04/20/2018 Medications There is no data. Problems Date Dx Coded Attending Type Code Diagnosis Diagnosed By 03/12/2010 KITTY MORGAN DO 623.5 Leukorrhea, Not Specified As Infective 03/12/2010 KITTY MORGAN DO 698.1 Pruritus Of Genital Organs 03/12/2010 KITTY MORGAN DO V25.49 Surveillance Of Other Contraceptive Method 03/12/2010 623.5 Leukorrhea, Not Specified As Infective 03/12/2010 698.1 Pruritus Of Genital Organs 03/12/2010 V25.49 Surveillance Of Other Contraceptive Method 03/12/2010 623.5 Leukorrhea, Not Specified As Infective 03/12/2010 698.1 Pruritus Of Genital Organs 03/12/2010 V25.49 Surveillance Of Other Contraceptive Method 03/12/2010 623.5 Leukorrhea, Not Specified As Infective 03/12/2010 698.1 Pruritus Of Genital Organs 03/12/2010 V25.49 Surveillance Of Other Contraceptive Method 03/12/2010 KITTY MORGAN DO 623.5 Leukorrhea, Not Specified As Infective 03/12/2010 KITTY MORGAN DO 698.1 Pruritus Of Genital Organs 03/12/2010 KITTY MORGAN DO V25.49 Surveillance Of Other Contraceptive Method 03/12/2010 KITTY MORGAN DO 623.5 Leukorrhea, Not Specified As Infective 03/12/2010 KITTY MORGAN DO 698.1 Pruritus Of Genital Organs 03/12/2010 KITTY MORGAN DO V25.49 Surveillance Of Other Contraceptive Method 03/12/2010 BOB ROBLES APRN 623.5 Leukorrhea, Not Specified As Infective 03/12/2010 BOB ROBLES APRN A 698.1 Pruritus Of Genital Organs 03/12/2010 BOB ROBLES APRN A V25.49 Surveillance Of Other Contraceptive Method 03/12/2010 SAMANTHA DAVISON APRN R 623.5 Leukorrhea, Not Specified As Infective 03/12/2010 SAMANTHA DAVISON APRN R 698.1 Pruritus Of Genital Organs 03/12/2010 SAMANTHA DAVISON APRN R V25.49 Surveillance Of Other Contraceptive Method 03/12/2010 KITTY MORGAN DO 623.5 Leukorrhea, Not Specified As Infective 03/12/2010 KITTY MORGAN DO 698.1 Pruritus Of Genital Organs 03/12/2010 KITTY MORGAN DO V25.49 Surveillance Of Other Contraceptive Method 03/26/2010 KITTY MORGAN DO 368.10 Visual Disturbance Unspecified 03/26/2010 368.10 Visual Disturbance Unspecified 03/26/2010 368.10 Visual Disturbance Unspecified 03/26/2010 368.10 Visual Disturbance Unspecified 03/26/2010 KITTY MORGAN DO 368.10 Visual Disturbance Unspecified 03/26/2010 KITTY MORGAN DO 368.10 Visual Disturbance Unspecified 03/26/2010 BOB ROBLES APRN A 368.10 Visual Disturbance Unspecified 03/26/2010 SAMANTHA DAVISON APRN R 368.10 Visual Disturbance Unspecified 03/26/2010 KITTY MORGAN DO K 368.10 Visual Disturbance Unspecified 05/22/2010 KITTY MORGAN DO 616.10 Vaginitis Vulvovaginitis Unspecified 05/22/2010 KITTY MORGAN DO V74.5 Std Screen 05/22/2010 616.10 Vaginitis Vulvovaginitis Unspecified 05/22/2010 V74.5 Std Screen 05/22/2010 616.10 Vaginitis Vulvovaginitis Unspecified 05/22/2010 V74.5 Std Screen 05/22/2010 616.10 Vaginitis Vulvovaginitis Unspecified 05/22/2010 V74.5 Std Screen 05/22/2010 KITTY MORGAN DO 616.10 Vaginitis Vulvovaginitis Unspecified 05/22/2010 KITTY MORGAN DO V74.5 Std Screen 05/22/2010 KITTY MORGAN DO 616.10 Vaginitis Vulvovaginitis Unspecified 05/22/2010 KITTY MORGAN DO V74.5 Std Screen 05/22/2010 BOB ROBLES APRN A 616.10 Vaginitis Vulvovaginitis Unspecified 05/22/2010 TRAVIS HILLMAN, BOB A V74.5 Std Screen 05/22/2010 SAMAN RIGGSN, SAMANTHA R 616.10 Vaginitis Vulvovaginitis Unspecified 05/22/2010 SAMAN HILLMAN, SAMANTHA R V74.5 Std Screen 05/22/2010 KITTY MORGAN DO K 616.10 Vaginitis Vulvovaginitis Unspecified 05/22/2010 KITTY MORGAN DO V74.5 Std Screen 06/26/2010 KITTY MORGAN DO V25.01 General Counseling On Prescription Of Oral Contraceptives 06/26/2010 V25.01 General Counseling On Prescription Of Oral Contraceptives 06/26/2010 V25.01 General Counseling On Prescription Of Oral Contraceptives 06/26/2010 V25.01 General Counseling On Prescription Of Oral Contraceptives 06/26/2010 KITTY MORGAN DO V25.01 General Counseling On Prescription Of Oral Contraceptives 06/26/2010 KITTY MORGAN DO V25.01 General Counseling On Prescription Of Oral Contraceptives 06/26/2010 BOB ROBLES APRN A V25.01 General Counseling On Prescription Of Oral Contraceptives 06/26/2010 SAMANTHA DAVISON APRN R V25.01 General Counseling On Prescription Of Oral Contraceptives 06/26/2010 KITTY MORGAN DO V25.01 General Counseling On Prescription Of Oral Contraceptives 07/02/2010 KITTY MORGAN DO 528.9 Other And Unspecified Diseases Of The Oral Soft Tissues 07/02/2010 528.9 Other And Unspecified Diseases Of The Oral Soft Tissues 07/02/2010 528.9 Other And Unspecified Diseases Of The Oral Soft Tissues 07/02/2010 528.9 Other And Unspecified Diseases Of The Oral Soft Tissues 07/02/2010 KITTY MORGAN DO 528.9 Other And Unspecified Diseases Of The Oral Soft Tissues 07/02/2010 KITTY MORGAN DO 528.9 Other And Unspecified Diseases Of The Oral Soft Tissues 07/02/2010 TRAVIS ACID REGENERATOR, BOB A 528.9 Other And Unspecified Diseases Of The Oral Soft Tissues 07/02/2010 SAMAN ACID REGENERATOR, SAMANTHA R 528.9 Other And Unspecified Diseases Of The Oral Soft Tissues 07/02/2010 MORGAN DO, KITTY K 528.9 Other And Unspecified Diseases Of The Oral Soft Tissues 10/14/2010 MORGAN DO, KITTY K 634.90 , Spontaneous Unspecified Without Complication 10/14/2010 MORGAN DO KITTY K 640.83 Other Specified Hemorrhage In Early Antepartum 10/14/2010 634.90 , Spontaneous Unspecified Without Complication 10/14/2010 640.83 Other Specified Hemorrhage In Early Antepartum 10/14/2010 634.90 , Spontaneous Unspecified Without Complication 10/14/2010 640.83 Other Specified Hemorrhage In Early Antepartum 10/14/2010 634.90 , Spontaneous Unspecified Without Complication 10/14/2010 640.83 Other Specified Hemorrhage In Early Antepartum 10/14/2010 MORGAN DO KITTY K 634.90 , Spontaneous Unspecified Without Complication 10/14/2010 MORGAN DO, KITTY K 640.83 Other Specified Hemorrhage In Early Antepartum 10/14/2010 MORGAN DO, KITTY K 634.90 , Spontaneous Unspecified Without Complication 10/14/2010 MORGAN DO, KITTY K 640.83 Other Specified Hemorrhage In Early Antepartum 10/14/2010 TRAVIS ACID REGENERATOR, BOB A 634.90 , Spontaneous Unspecified Without Complication 10/14/2010 TRAVIS ACID REGENERATOR, BOB A 640.83 Other Specified Hemorrhage In Early Antepartum 10/14/2010 SAMAN ACID REGENERATOR, SAMANTHA R 634.90 , Spontaneous Unspecified Without Complication 10/14/2010 SAMAN ACID REGENERATOR, SAMANTHA R 640.83 Other Specified Hemorrhage In Early Antepartum 10/14/2010 MORGAN DO, KITTY K 634.90 , Spontaneous Unspecified Without Complication 10/14/2010 MORGAN DO, KITTY K 640.83 Other Specified Hemorrhage In Early Antepartum 03/04/2012 KARINA MORGAN DOA K V72.42 Test Positive Result 03/04/2012 V72.42 Test Positive Result 03/04/2012 V72.42 Test Positive Result 03/04/2012 V72.42 Test Positive Result 03/04/2012 EDDIE HARPER, KITTY K V72.42 Test Positive Result 03/04/2012 EDDIE HARPER KITTY K V72.42 Test Positive Result 03/04/2012 BOB ROBLES APRN V72.42 Test Positive Result 03/04/2012 SAMANTHA DAVISON APRN V72.42 Test Positive Result 03/04/2012 KITTY MORGAN DO K V72.42 Test Positive Result 04/19/2012 EDDIE HARPERKITTY V22.1 , NORMAL OTHER 04/19/2012 V22.1 , NORMAL OTHER 04/19/2012 V22.1 , Normal Other 04/19/2012 V22.1 , Normal Other 04/19/2012 EDDIE HARPERKITTY V22.1 , Normal Other 04/19/2012 EDDIE HARPERKITTY K V22.1 , Normal Other 04/19/2012 BOB ROBLES APRN A V22.1 , Normal Other 04/19/2012 SAMANTHA DAVISON APRN V22.1 , Normal Other 04/19/2012 EDDIE HARPERKITTY K V22.1 , Normal Other 05/10/2012 EDDIE HARPERKITTY V76.2 Cervical Cancer Screening (pap Smear) 05/10/2012 V76.2 Cervical Cancer Screening (pap Smear) 05/10/2012 V76.2 Cervical Cancer Screening (pap Smear) 05/10/2012 V76.2 Cervical Cancer Screening (pap Smear) 05/10/2012 KITTY MORGAN DO V76.2 Cervical Cancer Screening (pap Smear) 05/10/2012 KITTY MORGAN DO V76.2 Cervical Cancer Screening (pap Smear) 05/10/2012 BOB ROBLES APRN A V76.2 Cervical Cancer Screening (pap Smear) 05/10/2012 SAMANTHA DAVISON APRN V76.2 Cervical Cancer Screening (pap Smear) 05/10/2012 KITTY MORGAN DO V76.2 Cervical Cancer Screening (pap Smear) 08/03/2012 KITTY MORGAN DO V04.81 FLU SHOT 08/03/2012 V04.81 FLU SHOT 08/03/2012 V04.81 Flu Shot 08/03/2012 V04.81 Flu Shot 08/03/2012 KITTY MORGAN DO V04.81 Flu Shot 08/03/2012 KITTY MORGAN DO K V04.81 Flu Shot 08/03/2012 BOB ROBLES APRN A V04.81 Flu Shot 08/03/2012 SAMANTHA DAVISON APRN V04.81 Flu Shot 08/03/2012 KITTY MORGAN DO V04.81 Flu Shot 08/17/2012 KITTY MORGAN DO K 649.60 UTERINE SIZE DATE DISCREPANCY - LGA 08/17/2012 649.60 UTERINE SIZE DATE DISCREPANCY - LGA 08/17/2012 649.60 Uterine Size Date Discrepancy - Lga 08/17/2012 649.60 Uterine Size Date Discrepancy - Lga 08/17/2012 KITTY MORGAN DO K 649.60 Uterine Size Date Discrepancy - Lga 08/17/2012 KITTY MORGAN DO K 649.60 Uterine Size Date Discrepancy - Lga 08/17/2012 BOB ROBLES APRN A 649.60 Uterine Size Date Discrepancy - Lga 08/17/2012 SAMANTHA DAVISON APRN 649.60 Uterine Size Date Discrepancy - Lga 08/17/2012 KITTY MORGAN DO K 649.60 Uterine Size Date Discrepancy - Lga 11/16/2012 V24.2 F/U , ROUTINE 11/16/2012 V25.09 CONTRACEPTIVE COUNSELING - GENERAL 11/16/2012 V24.2 F/U , ROUTINE 11/16/2012 V25.09 CONTRACEPTIVE COUNSELING - GENERAL 11/16/2012 KITTY MORGAN DO V24.2 F/U, ROUTINE 11/16/2012 KITTY MORGAN DO V25.09 CONTRACEPTIVE COUNSELING - GENERAL 11/16/2012 KITTY MORGAN DO V24.2 F/U, ROUTINE 11/16/2012 KITTY MORGAN DO V25.09 CONTRACEPTIVE COUNSELING - GENERAL 11/16/2012 BOB ROBLES APRN A V24.2 F/U, ROUTINE 11/16/2012 BOB ROBLES APRN A V25.09 CONTRACEPTIVE COUNSELING - GENERAL 11/16/2012 SAMANTHA DAVISON APRN V24.2 F/U, ROUTINE 11/16/2012 SAMANTHA DAVISON APRN V25.09 CONTRACEPTIVE COUNSELING - GENERAL 11/16/2012 KITTY MORGAN DO V24.2 F/U, ROUTINE 11/16/2012 KITTY MORGAN DO K V25.09 CONTRACEPTIVE COUNSELING - GENERAL 03/14/2013 466.0 BRONCHITIS, ACUTE 03/14/2013 KARINA MORGAN DOA K 466.0 BRONCHITIS, ACUTE 03/14/2013 MORGAN DO KITTY K 466.0 BRONCHITIS, ACUTE 03/14/2013 TRAVIS HILLMAN, BOB A 466.0 BRONCHITIS, ACUTE 03/14/2013 CAITLYN DAVISON APRNINA R 466.0 BRONCHITIS, ACUTE 03/14/2013 KARINA MORGAN DOA K 466.0 BRONCHITIS, ACUTE 08/29/2013 KARINA MORGAN DOA K 724.2 LUMBAGO/ LOW BACK PAIN 08/29/2013 KARINA MORGAN DOA K 785.6 LYMPHADENOPATHY 08/29/2013 TRAVIS HILLMAN, BOB A 724.2 LUMBAGO/ LOW BACK PAIN 08/29/2013 TRAVIS HILLMAN, BOB A 785.6 LYMPHADENOPATHY 08/29/2013 SAMAN HILLMAN SAMANTHA R 724.2 LUMBAGO/ LOW BACK PAIN 08/29/2013 SAMAN HILLMAN SAMANTHA R 785.6 LYMPHADENOPATHY 08/29/2013 KARINA MORGAN DOA K 724.2 LUMBAGO/ LOW BACK PAIN 08/29/2013 KARINA MORGAN DOA K 785.6 LYMPHADENOPATHY 10/27/2013 GIOVANNI GRIGGS DO Ot 719.41 JOINT PAIN-SHLDER 10/27/2013 GIOVANNI GRIGGS DO Ot 723.1 CERVICALGIA 04/13/2014 SAMANTHA DAVISON APRN R 300.00 ANXIETY STATE UNSPECIFIED 04/13/2014 SAMANTHA DAVISON APRN R 311 DEPRESSIVE DISORDER NOT ELSEWHERE CLASSIFIED 04/13/2014 KITTY MORGAN DO K 300.00 ANXIETY STATE UNSPECIFIED 04/13/2014 KITTY MORGAN DO K 311 DEPRESSIVE DISORDER NOT ELSEWHERE CLASSIFIED 10/24/2014 KITTY MORGAN DO K V72.41 TEST NEGATIVE RESULT 12/10/2016 LUIS ALFREDO MATTHEWS Ot J01.91 ACUTE RECURRENT SINUSITIS, UNSPECIFIED 12/10/2016 LUIS ALFREDO MATTHEWS Ot J01.91 ACUTE RECURRENT SINUSITIS, UNSPECIFIED 12/28/2016 LUIS ALFREDO MATTHEWS Ot J01.91 ACUTE RECURRENT SINUSITIS, UNSPECIFIED 02/26/2017 MCCARTNEY KARRIE HARVYE Ot J32.9 CHRONIC SINUSITIS, UNSPECIFIED 02/26/2017 KARRIE MCCARTNEY MD Ot J33.8 OTHER POLYP OF SINUS 03/01/2017 KARRIE MCCARTNEY MD Ot J32.9 CHRONIC SINUSITIS, UNSPECIFIED 03/01/2017 KARRIE MCCARTNEY MD Ot J33.8 OTHER POLYP OF SINUS 03/01/2017 KARRIE MCCARTNEY MD Ot J32.9 CHRONIC SINUSITIS, UNSPECIFIED 03/01/2017 KARRIE MCCARTNEY MD Ot J33.8 OTHER POLYP OF SINUS 03/01/2017 KARRIE MCCARTNEY MD Ot J32.9 CHRONIC SINUSITIS, UNSPECIFIED 03/01/2017 KARRIE MCCARTNEY MD Ot J33.8 OTHER POLYP OF SINUS 03/15/2017 KARRIE MCCARTNEY MD Ot J32.9 CHRONIC SINUSITIS, UNSPECIFIED 03/15/2017 KARRIE MCCARTNEY MD Ot J33.8 OTHER POLYP OF SINUS 04/02/2017 KARRIE MCCARTNEY MD Ot J32.9 CHRONIC SINUSITIS, UNSPECIFIED 04/02/2017 KARRIE MCCARTNEY MD Ot J34.89 OTHER SPECIFIED DISORDERS OF NOSE AND NA 04/02/2017 KARRIE MCCARTNEY MD Ot R09.81 NASAL CONGESTION 04/02/2017 KARRIE MCCARTNEY MD Ot Z01.818 ENCOUNTER FOR OTHER PREPROCEDURAL EXAMIN 04/09/2017 KARRIE MCCARTNEY MD Ot J32.0 CHRONIC MAXILLARY SINUSITIS 04/09/2017 KARRIE MCCARTNEY MD Ot J32.1 CHRONIC FRONTAL SINUSITIS 04/09/2017 KARRIE MCCARTNEY MD Ot J32.2 CHRONIC ETHMOIDAL SINUSITIS 04/09/2017 KARRIE MCCARTNEY MD Ot J34.3 HYPERTROPHY OF NASAL TURBINATES 04/09/2017 KARRIE MCCARTNEY MD Ot J45.909 UNSPECIFIED ASTHMA, UNCOMPLICATED 04/12/2017 KARRIE MCCARTNEY MD Ot J32.0 CHRONIC MAXILLARY SINUSITIS 04/12/2017 KARRIE MCCARTNEY MD Ot J32.1 CHRONIC FRONTAL SINUSITIS 04/12/2017 KARRIE MCCARTNEY MD Ot J32.2 CHRONIC ETHMOIDAL SINUSITIS 04/12/2017 KARRIE MCCARTNEY MD Ot J34.3 HYPERTROPHY OF NASAL TURBINATES 04/12/2017 KARRIE MCCARTNEY MD Ot J45.909 UNSPECIFIED ASTHMA, UNCOMPLICATED 12/01/2017 PATRICE KOO APRN Ot J45.901 UNSPECIFIED ASTHMA WITH (ACUTE) EXACERBA 12/01/2017 PATRICE KOO APRN Ot R06.02 SHORTNESS OF BREATH 12/01/2017 PATRICE KOO APRN Ot Z88.1 ALLERGY STATUS TO OTHER ANTIBIOTIC AGENT 12/01/2017 LUIS ALFREDO MATTHEWS CELINA Ot J01.91 ACUTE RECURRENT SINUSITIS, UNSPECIFIED 12/01/2017 SHERRILL HARVEY, KARRIE Guillen Ot J32.9 CHRONIC SINUSITIS, UNSPECIFIED 12/01/2017 SHERRILL HARVEY, KARRIE Guillen Ot J33.8 OTHER POLYP OF SINUS 12/03/2017 PATRICE KOO APRN Ot J45.901 UNSPECIFIED ASTHMA WITH (ACUTE) EXACERBA 12/03/2017 PATRICE OKO APRN Ot R06.02 SHORTNESS OF BREATH 12/03/2017 PATRICE KOO APRN Ot Z88.1 ALLERGY STATUS TO OTHER ANTIBIOTIC AGENT 04/19/2018 DELMAN DO, KINGS B Ot Z01.818 ENCOUNTER FOR OTHER PREPROCEDURAL EXAMIN 04/20/2018 DELMAN DO, KINGS B Ot Z01.818 ENCOUNTER FOR OTHER PREPROCEDURAL EXAMIN 04/20/2018 DELMAN DO, KINGS B Ot Z01.818 ENCOUNTER FOR OTHER PREPROCEDURAL EXAMIN 04/20/2018 DELMAN DO, KINGS B Ot K60.2 ANAL FISSURE, UNSPECIFIED 04/20/2018 DELMAN DO, KINGS B Ot Z01.818 ENCOUNTER FOR OTHER PREPROCEDURAL EXAMIN 04/21/2018 DELMAN DO, KINGS B Ot K60.2 ANAL FISSURE, UNSPECIFIED 04/21/2018 DELMAN DO, KINGS B Ot Z01.818 ENCOUNTER FOR OTHER PREPROCEDURAL EXAMIN 04/29/2018 DELMAN DO, KINGS B Ot J45.909 UNSPECIFIED ASTHMA, UNCOMPLICATED 04/29/2018 DELMAN DO, KINGS B Ot K62.89 OTHER SPECIFIED DISEASES OF ANUS AND REC 04/29/2018 DELMAN DO, KINGS B Ot L02.214 CUTANEOUS ABSCESS OF GROIN 05/03/2018 DELMAN DO, KINGS B Ot J45.909 UNSPECIFIED ASTHMA, UNCOMPLICATED 05/03/2018 DELMAN DO, KINGS B Ot K62.89 OTHER SPECIFIED DISEASES OF ANUS AND REC 05/03/2018 DELMAN DO, KINGS B Ot L02.214 CUTANEOUS ABSCESS OF GROIN 05/04/2018 KUSUM DA SILVA DOLUIS Henderson Ot J45.909 UNSPECIFIED ASTHMA, UNCOMPLICATED 05/04/2018 REKHA HARPER KINGS B Ot K62.89 OTHER SPECIFIED DISEASES OF ANUS AND REC 05/04/2018 REKHA HARPER KINGS B Ot L02.214 CUTANEOUS ABSCESS OF GROIN 05/05/2018 KUSUM DA SILVA DOIC B Ot J45.909 UNSPECIFIED ASTHMA, UNCOMPLICATED 05/05/2018 REKHA HARPER KINGS B Ot K62.89 OTHER SPECIFIED DISEASES OF ANUS AND REC 05/05/2018 REKHA HARPER KINGS B Ot L02.214 CUTANEOUS ABSCESS OF GROIN 11/04/2018 REKHA HARPER KINGS B Ot Z01.818 ENCOUNTER FOR OTHER PREPROCEDURAL EXAMIN 11/07/2018 REKHA HARPERKINGS Ot Z01.818 ENCOUNTER FOR OTHER PREPROCEDURAL EXAMIN 11/09/2018 LUIS ALFREDO MATTHEWS Ot J01.91 ACUTE RECURRENT SINUSITIS, UNSPECIFIED 11/09/2018 SHERRILL HARVEY, KARRIE Guillen Ot J32.9 CHRONIC SINUSITIS, UNSPECIFIED 11/09/2018 KARRIE MCCARTNEY MD Ot J33.8 OTHER POLYP OF SINUS Procedures Code Description [place] [address] UA OB DIP 08/17/2012 05624 US OB ULTRASOUND 08/31/2012 51815 UA OB DIP 08/31/2012 29981 UA OB DIP 09/14/2012 70585 CULTURE GROUP B STREP VAG 09/18/2012 92737 UA OB DIP 09/21/2012 65015 US OB ULTRASOUND 09/21/2012 13552 UA OB DIP 09/28/2012 52636 HERPES SIMPLEX CULTURE 07/10/2013 80176 ROUTINE VENIPUNCTURE 08/29/2013 77842 MONO TEST (IN-HOUSE) 08/29/2013 17516 CBC 08/29/2013 [id number] GFR CALC (RESULT ONLY) 08/29/2013 76833 CMP 08/29/2013 72148 URINE TEST (IN- HOUSE) 10/12/2013 09032 ROUTINE VENIPUNCTURE 04/13/2014 51763 CMP 04/13/2014 [id number] GFR CALC (RESULT ONLY) 04/13/2014 12384 TSH 04/13/2014 34434 TEST, URINE (IN- HOUSE) 10/24/2014 Results Test Result Range Genital Culture, Routine - 09/15/16 11:13 Genital Culture, Routine Note Pap Lb, rfx HPV ASCU - 09/15/16 11:13 DIAGNOSIS: Comment Specimen adequacy: Comment Clinician provided ICD10: Comment Performed by: Comment . . Note: Comment . Comment Urine beta human chorionic gonadotropin (hCG) measurement - 04/09/17 08:10 Urine beta human chorionic gonadotropin (hCG) measurement NEGATIVE NEGATIVE Methicillin resistant Staphylococcus aureus (MRSA) screening culture - 08:30 Methicillin resistant Staphylococcus aureus (MRSA) screening culture NEG NRG Complete blood count (CBC) with automated white blood cell (WBC) differential - 04/09/17 08:45 Blood leukocytes automated count (number/volume) 9.3 10*3/uL 4.3-11.0 Blood erythrocytes automated count (number/volume) 4.50 10*6/uL 4.35-5.85 Venous blood hemoglobin measurement (mass/volume) 13.5 g/dL 11.5-16.0 Blood hematocrit (volume fraction) 41 % 35-52 Automated erythrocyte mean corpuscular volume 91 [foz_us] 80-99 Automated erythrocyte mean corpuscular hemoglobin (mass per erythrocyte) 30 pg 25-34 Automated erythrocyte mean corpuscular hemoglobin concentration measurement ( mass/volume) 33 g/dL 32-36 Automated erythrocyte distribution width ratio 12.3 % 10.0-14.5 Automated blood platelet count (count/volume) 233 10*3/uL 130-400 Automated blood platelet mean volume measurement 10.5 [foz_us] 7.4-10.4 Automated blood neutrophils/100 leukocytes 45 % 42-75 Automated blood lymphocytes/100 leukocytes 44 % 12-44 Blood monocytes/100 leukocytes 7 % 0-12 Automated blood eosinophils/100 leukocytes 4 % 0-10 Automated blood basophils/100 leukocytes 0 % 0-10 Blood neutrophils automated count (number/volume) 4.1 10*3 1.8-7.8 Blood lymphocytes automated count (number/volume) 4.1 10*3 1.0-4.0 Blood monocytes automated count (number/volume) 0.6 10*3 0.0-1.0 Automated eosinophil count 0.4 10*3/uL 0.0-0.3 Automated blood basophil count (count/volume) 0.0 10*3/uL 0.0-0.1 Whole blood basic metabolic panel - 04/09/17 08:45 Serum or plasma sodium measurement (moles/volume) 142 mmol/L 135-145 Serum or plasma potassium measurement (moles/volume) 3.6 mmol/L 3.6-5.0 Serum or plasma chloride measurement (moles/volume) 104 mmol/L 98-107 Carbon dioxide 28 mmol/L 21-32 Serum or plasma anion gap determination (moles/volume) 10 mmol/L 5-14 Serum or plasma urea nitrogen measurement (mass/volume) 17 mg/dL 7-18 Serum or plasma creatinine measurement (mass/volume) 0.73 mg/dL 0.60-1.30 Serum or plasma urea nitrogen/creatinine mass ratio 23 0 -20 Serum or plasma creatinine measurement with calculation of estimated glomerular filtration rate > [facility] Serum or plasma glucose measurement (mass/volume) 86 mg/dL 70-105 Serum or plasma calcium measurement (mass/volume) 9.1 mg/dL 8.5-10.1 Influenza virus A and B antigen detection - 12/01/17 16:10 FLU RESULT NEGATIVE FOR INFLUENZA A AND B ANTIGENS BY IA NRG CMP - 01/05/18 17:03 GLUCOSE 90 mg/dL 65-99 UREA NITROGEN (BUN) 13 mg/dL 7-25 CREATININE 0.69 mg/dL 0.50-1.10 eGFR NON-AFR. DOMINICAN 119 mL/min/1.73m2 > OR=60 eGFR 138 mL/min/1.73m2 > OR=60 BUN/CREATININE RATIO NOT APPLICABLE (calc) 6-22 SODIUM 140 mmol/L 135-146 POTASSIUM 4.1 mmol/L 3.5-5.3 CHLORIDE 105 mmol/L 98-110 CARBON DIOXIDE 29 mmol/L 20-31 CALCIUM 9.3 mg/dL 8.6-10.2 PROTEIN, TOTAL 6.9 g/dL 6.1-8.1 ALBUMIN 4.5 g/dL 3.6-5.1 GLOBULIN 2.4 g/dL (calc) 1.9-3.7 ALBUMIN/GLOBULIN RATIO 1.9 (calc) 1.0-2.5 BILIRUBIN, TOTAL 0.3 mg/dL 0.2-1.2 ALKALINE PHOSPHATASE 40 U/L 33-115 AST 13 U/L 10-30 ALT 8 U/L 6-29 Urine beta human chorionic gonadotropin (hCG) measurement - 04/29/18 07:30 Urine beta human chorionic gonadotropin (hCG) measurement NEGATIVE NEGATIVE Methicillin resistant Staphylococcus aureus (MRSA) screening culture - 07:45 Methicillin resistant Staphylococcus aureus (MRSA) screening culture NEG NRG Encounters ACCT No. Visit Date/Time Discharge Status Pt. Type Provider Facility Loc./Unit Complaint [id number] 10/24/2014 16:34:00 10/24/2014 23:59:59 CLS Outpatient KITTY MORGAN DO [id number] 04/13/2014 07:59:00 04/13/2014 23:59:59 CLS Outpatient SAMAN ACID REGENERATORSAMANTHA Estevez [id number] 10/12/2013 17:12:00 10/12/2013 23:59:59 CLS Outpatient TRAVIS RAFY BOB A [id number] 08/29/2013 09:44:00 08/29/2013 23:59:59 CLS Outpatient KITTY MORGAN DO [id number] 07/06/2013 11:29:00 07/06/2013 23:59:59 CLS Outpatient KITTY MORGAN DO [id number] 11/16/2012 10:32:00 11/16/2012 23:59:59 CLS Outpatient [id number] 09/28/2012 16:06:00 09/28/2012 23:59:59 CLS Outpatient [id number] 08/31/2012 15:18:00 08/31/2012 23:59:59 CLS Outpatient KITTY MORGAN DO [id number] 03/14/2013 16:36:00 Document Registration [id number] 10/31/2018 10:40:00 10/31/2018 23:59:59 CLS Outpatient LUIS ALFREDO MATTHEWS APRN [facility] [id number] 01/05/2018 15:20:00 Document Registration [id number] 09/18/2016 10:05:00 Document Registration [id number] 11/04/2018 05:38:00 11/04/2018 12:30:00 DIS Outpatient KINGS DA SILVA DO Via [facility] PREOP EGD [id number] 04/29/2018 07:22:00 04/29/2018 11:55:00 DIS Outpatient KINGS DA SILVA DO Via [facility] FISSURE [id number] 04/20/2018 05:32:00 04/20/2018 13:16:00 DIS Outpatient KINGS DA SILVA DO [facility] PREOP FISSURE [id number] 12/01/2017 15:29:00 12/01/2017 17:30:00 DIS Emergency PATRICE KOO APRN [facility] ER BREATHING TROUBLE [id number] 04/09/2017 08:00:00 04/09/2017 13:30:00 DIS Outpatient KARRIE MCCARTNEY MD [facility] SDC HYPERTROPHY [id number] 04/02/2017 05:37:00 04/02/2017 14:44:00 DIS Outpatient KARRIE MCCARTNEY MD [facility] PREOP HYPERTROPHY [id number] 02/25/2017 16:28:00 02/25/2017 23:59:59 CLS Outpatient KARRIE MCCARTNEY MD [facility] RAD PANSINUSITIS,RT MAXILLARY POLYP [id number] 12/09/2016 08:01:00 12/09/2016 23:59:59 CLS Outpatient LUIS ALFREDO MATTHEWS [facility] RAD ACUTE RECURRENT SINUSITIS [id number] 10/27/2013 19:34:00 10/27/2013 20:33:00 DIS Emergency GIOVANNI GRIGGS DO [facility] ER NECK PAIN [id number] 11/09/2018 08:02:00 ACT Outpatient KINGS DA SILVA DO [facility] ENDO COUGH [id number] 09/21/2016 13:05:00 Document Registration
--- OUTSIDE RECORDS SUMMARY | 2018-11-09 10:10 | XMS REPORT ---
Author Author LUIS ALFREDO MATTHEWS [facility] Address [address] [place] [address] Care Team Providers Care Power Tong Operator Name Role Phone LUIS ALFREDO MATTHEWS Unavailable PROBLEMS Type Condition ICD9-CM Code OUU60-EA Code Onset Dates Condition Status SNOMED Code Problem Chronic pansinusitis J32.4 Active 18722033 Problem Insomnia, unspecified type G47.00 Active 635183112 Problem Anxiety state, unspecified 300.00 Active 943074737 Problem Depressive disorder, not elsewhere classified 311 Active 47808063 Problem Moderate persistent asthma without complication J45.40 Active 033377886 Problem Mild intermittent asthma without complication J45.20 Active 355826499 ALLERGIES No Information SOCIAL HISTORY Never Assessed PLAN OF CARE VITAL SIGNS MEDICATIONS Unknown Medications RESULTS No Results PROCEDURES No Known procedures IMMUNIZATIONS No Known Immunizations MEDICAL (GENERAL) HISTORY Type Description Date Medical History Seasonal allergic rhinitis, unspecified allergic rhinitis trigger Surgical History Sinus surgery 05/2017 Hospitalization History childbirth x3 Hospitalization History miscarriage x1
--- NOTE | 2018-11-09 12:04 | OPERATIVE REPORT ---
DATE OF SERVICE: PREOPERATIVE DIAGNOSES: Gastritis, cough and asthma. POSTOPERATIVE DIAGNOSES: 1. Gastritis. 2. Gastric polyp. 3. Esophagitis. 4. History of cough and asthma. PROCEDURES: 1. EGD with biopsy. 2. EGD with polyp removal. SURGEON: Earl Sahu DO. ACOUSTICAL CARPENTER: None. ANESTHESIA: IV sedation by the INSPECTOR POISING. SPECIMEN: One biopsy from the antrum, one biopsy from the body of the stomach, biopsy of a polyp and then biopsied the GE junction. BLOOD LOSS: Scant. FLUIDS: Per anesthesia. POSTOPERATIVE CONDITION: Stable. INDICATION FOR PROCEDURE: The patient is a 28-year-old female who is having increasing cough and gastric symptoms, history of asthma, which she states that asthma gets better when she takes antibiotics and needed EGD for workup. FINDINGS: The patient had pretty severe gastritis in the stomach, duodenum looked fine, polyp seen in the stomach and some mild esophagitis. PROCEDURE NOTE: After informed consent was obtained, the patient was brought to the endoscopy suite and placed in the left lateral decubitus position and administered IV sedation by the INSPECTOR POISING who then monitored her vitals the entire time, heart rate, blood pressure and pulse ox and the scope was inserted down the mouth through the esophagus and into the stomach. Upon entering the stomach, immediately noted some gastritis, took picture of this pushed towards the antrum saw some more gastritis, pushed into the duodenum, duodenum looked fine, took a picture, backed up into the stomach and then did a biopsy of the antrum, then backed up little bit, did another biopsy of the front of the body of the stomach, looked like almost an ulceration and then retroflexed, saw a polyp at the body of the stomach, elected to do a biopsy, it was able to get almost all of it with biopsy to remove this polyp. Retroflexed to look up at the GE junction from the gastric side looked like she may have had a very small hiatal hernia. Pulled the scope back up into the esophagus and then did a biopsy of the GE junction and then pulled the scope up the esophagus. Rest of the esophagus looked fine. No other obvious pathology. I had suctioned air out of the stomach and pulled the scope up the esophagus into the mouth. Took a quick picture of the vocal cords, they looked okay and then removed the scope. The patient tolerated the procedure and she was recovered in the endoscopy suite. Job ID: [id number] DocumentID: [id number] Dictated Date: 11/09/2018 08:58:17 Beauty Culturist Date: 11/09/2018 12:04:28 Dictated By: EARL SAHU DO
--- NOTE | 2018-11-09 12:05 | Anesthesia-General Post-Op ---
MAC Patient Condition Mental Status/LOC: Same as Preop Cardiovascular: Satisfactory Nausea/Vomiting: Absent Respiratory: Satisfactory Pain: Controlled Complications: Absent Post Op Complications Complications None Follow Up Care/Instructions Patient Instructions None needed. Anesthesiology Discharge Order Discharge Order Patient was seen after the procedure and she was doing well, no complaints, stable vital signs, no apparent adverse anesthesia problems. CARMEN JONES DO Nov 09, 2018 12:05
== END 2018-11-09 10:00 | disposition home or self-care (01) ==
LOC: ENDO 08:02
PROVIDERS: ATTEND Surgery
DX: K29.70 Gastritis, unspecified, without bleeding (principal); K31.7 Polyp of stomach and duodenum; K20.9 Esophagitis, unspecified; R05 Cough; J45.909 Unspecified asthma, uncomplicated
CPT/HCPCS: 84703; 88305

== ENCOUNTER → 2018-11-24 | Outpatient (CLI) | payer MEDICAID ==
[~2018-11-24] MED LIST changes: -LACTATED RINGERS 1,000 ML IV ONE; +PANT40TA2 PO
[2018-11-24] MEDS: BARIUM SUSPENSION 105% (LIQUID POLIBAR PLUS) 240 ML/DOSE PO ONE (10:15)
[2018-11-24] MEDS: BARIUM SUSPENSION 60% (LIQUID EZ PAQUE) 240 ML DOSE PO ONE (10:15)
--- NOTE | 2018-11-24 19:52 | Diagnostic Imaging Report ---
INDICATION: Cough. EXAMINATION: Barium swallow study. FINDINGS: The preliminary radiograph is unremarkable. The esophageal motility was assessed fluoroscopically. There is satisfactory efficacy of the primary peristaltic wave. There are no intrinsic or extrinsic esophageal masses. Esophageal mucosa is unremarkable. There is no hiatal hernia. There is no significant gastroesophageal reflux appreciated despite evocative maneuvers. IMPRESSION: Normal esophagram. Dictated by: Dictated on workstation # [id number]
== END ==
LOC: RAD 09:24
PROVIDERS: ATTEND Surgery
DX: R05 Cough (principal)
CPT/HCPCS: 74220

== ENCOUNTER → 2019-01-06 | Outpatient (CLI) | payer MEDICAID ==
--- NOTE | 2019-01-06 09:20 | Diagnostic Imaging Report ---
PROCEDURE: MR imaging of the brain without contrast. TECHNIQUE: Multiplanar, multisequence MR imaging of the brain was performed without contrast. INDICATION: Headache, dizziness and loss of smell. No prior studies are available for comparison. The ventricles and sulci are within normal limits. No diffusion restriction is seen. Normal expected flow-voids within the carotid siphons are identified. No sulcal effacement or midline shift is identified. No acute intra-axial or extra-axial hemorrhage is detected. Corpus callosum is unremarkable. Sella and parasellar structures are unremarkable. Note is made of fluid or mucosal thickening involving the frontal sinus. There appears to be complete opacification of the ethmoid air cells as well as mucosal thickening of the bilateral maxillary sinuses. There is moderate fluid throughout the sphenoid sinus. Mastoids are well aerated. IMPRESSION: 1. Unremarkable noncontrast MRI of the brain. 2. Pansinusitis. Dictated by: Dictated on workstation # [id number]
== END ==
LOC: RAD 08:00
PROVIDERS: ATTEND Internal Medicine Critical Care Medicine
DX: J32.4 Chronic pansinusitis (principal)
CPT/HCPCS: 70551

== ENCOUNTER → 2019-03-15 | Outpatient (CLI) | payer MEDICAID ==
[2019-03-15 10:41] LABS: BASOPHILS % (AUTO) 0 % (0-10); EOSINOPHILS # (AUTO) 0.8 10^3/uL (0.0-0.3); EOSINOPHILS % (AUTO) 12 % (0-10); HEMATOCRIT 43 % (35-52); HEMOGLOBIN 14.3 G/DL (11.5-16.0); LYMPHOCYTES # (AUTO) 1.9 X 10^3 (1.0-4.0); LYMPHOCYTES % (AUTO) 27 % (12-44); MEAN CORPUSCULAR HEMOGLOBIN 29 PG (25-34); MEAN CORPUSCULAR HGB CONC 33 G/DL (32-36); MEAN CORPUSCULAR VOLUME 88 FL (80-99); MEAN PLATELET VOLUME 10.7 FL (7.4-10.4); MONOCYTES # (AUTO) 0.4 X 10^3 (0.0-1.0); MONOCYTES % (AUTO) 6 % (0-12); NEUTROPHILS # (AUTO) 3.9 X 10^3 (1.8-7.8); NEUTROPHILS % (AUTO) 55 % (42-75); PLATELET COUNT 208 10^3/uL (130-400); RED CELL DISTRIBUTION WIDTH 11.9 % (10.0-14.5)
[2019-03-16 05:59] LABS: ALTERNARIA MOLD RAST <0.35 kU/L (<0.35); RAGWEED RAST <0.35 kU/L (<0.35)
== END ==
LOC: LAB 10:21
PROVIDERS: ATTEND Nurse Practitioner Family
DX: J45.50 Severe persistent asthma, uncomplicated (principal); R05 Cough; J30.9 Allergic rhinitis, unspecified
CPT/HCPCS: 36415; 82785; 85025; 86003

== ENCOUNTER → 2019-03-15 | Outpatient (CLI) | payer MEDICAID ==
[~2019-03-15] MED LIST changes: +RT-ALBUTEROL SULF 2.5 MG/3 ML PRE-MIX VIAL INH ONE
== END ==
LOC: RT 08:13
PROVIDERS: ATTEND Nurse Practitioner Family
DX: J45.909 Unspecified asthma, uncomplicated (principal)
CPT/HCPCS: 94060; 94729

== ENCOUNTER → 2019-04-03 | Outpatient (CLI) | payer MEDICAID ==
[~2019-04-03] MED LIST changes: +HOLD METFORMIN - RECEIVED CONTRAST 20 ML VIAL IV SCH; +IOHEXOL 350 MG/ML 100 ML (OMNIPAQUE 350) VIAL IV ONE; +NS 100 ML (IVPB) BAG IV ONE; -RT-ALBUTEROL SULF 2.5 MG/3 ML PRE-MIX VIAL INH ONE
[2019-04-03 08:06] LABS: BUN/CREATININE RATIO 19; CREATININE SERUM 0.77 MG/DL (0.60-1.30); GFR ESTIMATED > 60
--- NOTE | 2019-04-03 08:34 | Diagnostic Imaging Report ---
PROCEDURE: CT chest with contrast only. TECHNIQUE: Multiple contiguous axial images were obtained through the chest after administration of intravenous contrast. Auto Exposure Controls were utilized during the CT exam to meet ALARA standards for radiation dose reduction. INDICATION: Cough, difficulty breathing. There are no prior CT chest examinations available for comparison. FINDINGS: The plain film examination of the chest performed on 12/01/2017 failed to show any sign of an acute cardiopulmonary abnormality. On this study, the heart size is within normal limits. The aorta is not abnormally dilated and there is no sign of dissection. The pulmonary arteries are not fully opacified but there is no definite defect to suggest a pulmonary embolus. The lungs are clear. There is no evidence for failure, pneumonia or for pleural effusion. There is a small 5.2 mm pleural-based density along the posterior aspect of the right upper lobe. This finding is not calcified but has a generally benign appearance. There is no mediastinal or hilar adenopathy. There is a small triangular soft tissue density in the anterior mediastinum. Most likely, this is due to residual thymic tissue. The thyroid gland, where visualized, is unremarkable. There is no obvious breast mass. The sections through the upper abdomen fail to show any sign of an acute abnormality. The bone windows are unremarkable for a fracture or for a destructive lesion. IMPRESSION: 1. There is no evidence for an acute cardiopulmonary abnormality. 2. The small pleural-based density along the posterior aspect of the right upper lung is of uncertain etiology although most likely benign. Dictated by: Dictated on workstation # [id number]
== END ==
LOC: RAD 07:34
PROVIDERS: ATTEND Nurse Practitioner Family
DX: J45.50 Severe persistent asthma, uncomplicated (principal); K29.50 Unspecified chronic gastritis without bleeding; J30.9 Allergic rhinitis, unspecified
CPT/HCPCS: 36415; 71260; 82565; 84520

== ENCOUNTER 2019-05-19 16:04 | Emergency (ER) | payer MEDICAID ==
[~2019-05-19] VITALS: Ht 157.5 cm; Wt 50.3 kg
[~2019-05-19 16:04] MED LIST changes: -HOLD METFORMIN - RECEIVED CONTRAST 20 ML VIAL IV SCH; -IOHEXOL 350 MG/ML 100 ML (OMNIPAQUE 350) VIAL IV ONE; -NS 100 ML (IVPB) BAG IV ONE
--- OUTSIDE RECORDS SUMMARY | 2019-05-19 17:44 | XMS REPORT | Continuity of Care Document ---
Author Organization Unknown Address Unknown Allergies Active Description Code Type Severity Reaction Onset Reported/Identified Relationship to Patient Clinical Status Yes NKANo Known Allergies NKA Miscellaneous Allergy Unknown N/A 07/26/2006 Yes No Known Drug Allergies [id number] Drug Allergy Unknown N/A 04/20/2018 Medications There [...] V25.49 Surveillance Of Other Contraceptive Method 03/12/2010 TRAVISBOB Estevez APRN 623.5 Leukorrhea, Not Specified As Infective 03/12/2010 BOB ROBLES APRN A 698.1 Pruritus Of Genital Organs 03/12/2010 TRAVISBOB Estevez APRN A V25.49 Surveillance Of Other Contraceptive [...] KITTY MORGAN DO V74.5 Std Screen 05/22/2010 TRAVIS HILLMAN, BOB A 616.10 Vaginitis Vulvovaginitis Unspecified 05/22/2010 BOB ROBLES APRN A V74.5 Std Screen 05/22/2010 SAMAN SUPPORT ASSOCIATE, SAMANTHA R 616.10 Vaginitis Vulvovaginitis Unspecified 05/22/2010 [...] Of Oral Contraceptives 06/26/2010 KITTY MORGAN DO K V25.01 General Counseling On Prescription Of Oral [...] Diseases Of The Oral Soft Tissues 07/02/2010 BOB ROBLES APRN A 528.9 Other And Unspecified Diseases Of The Oral Soft Tissues 07/02/2010 SAMAN SUPPORT ASSOCIATE, SAMANTHA R 528.9 Other And Unspecified Diseases [...] Hemorrhage In Early Antepartum 10/14/2010 MORGAN DO, IKTTY K 634.90 , Spontaneous Unspecified Without Complication 10/14/2010 EDDIE HARPER, KITTY K 640.83 Other Specified Hemorrhage In Early Antepartum 10/14/2010 MORGAN DO, KITTY K 634.90 , Spontaneous Unspecified Without Complication 10/14/2010 MORGAN DO, KITTY K 640.83 Other Specified Hemorrhage In Early Antepartum 10/14/2010 TRAVIS SUPPORT ASSOCIATE, BOB A 634.90 , Spontaneous Unspecified Without Complication 10/14/2010 TRAVIS SUPPORT ASSOCIATE, BOB A 640.83 Other Specified Hemorrhage In Early Antepartum 10/14/2010 SAMAN SUPPORT ASSOCIATE, SAMANTHA R 634.90 , Spontaneous Unspecified Without Complication 10/14/2010 SAMAN SUPPORT ASSOCIATE, SAMANTHA R 640.83 Other Specified Hemorrhage In Early Antepartum 10/14/2010 MORGAN DO, KITTY K 634.90 , Spontaneous Unspecified Without Complication 10/14/2010 MORGAN DO KITTY K 640.83 Other Specified Hemorrhage In Early Antepartum 03/04/2012 KARINA MORGAN DOA K V72.42 Test Positive Result 03/04/2012 V72.42 Test Positive Result 03/04/2012 V72.42 Test Positive Result 03/04/2012 V72.42 Test Positive Result 03/04/2012 KARINA MORGAN DOA K V72.42 Test Positive Result 03/04/2012 KITTY MORGAN DO V72.42 Test Positive Result 03/04/2012 BOB ROBLES APRN A V72.42 Test Positive Result 03/04/2012 SAMANTHA DAVISON APRN V72.42 Test Positive Result 03/04/2012 KITTY MORGAN DO V72.42 Test Positive Result 04/19/2012 KITTY MORGAN DO V22.1 , NORMAL OTHER 04/19/2012 V22.1 , NORMAL OTHER 04/19/2012 V22.1 , Normal Other 04/19/2012 V22.1 , Normal Other 04/19/2012 MORGAN KITTY HARPER V22.1 , Normal Other 04/19/2012 MORGAN KITTY HARPER V22.1 , Normal Other 04/19/2012 BOB ROBLES APRN A V22.1 , Normal Other 04/19/2012 SAMANTHA DAVISON APRN V22.1 , Normal Other 04/19/2012 MORGAN KITTY HARPER V22.1 , Normal Other 05/10/2012 KITTY MORGAN DO V76.2 Cervical Cancer [...] KITTY MORGAN DO V04.81 Flu Shot 08/03/2012 TRAVISBOB OTTO APRN A V04.81 Flu Shot 08/03/2012 SAMANTHA DAVISON APRN R V04.81 Flu Shot 08/03/2012 EDDIE HARPER KITTY K V04.81 Flu Shot 08/17/2012 EDDIE HARPER KITTY K 649.60 UTERINE SIZE DATE DISCREPANCY - LGA 08/17/2012 649.60 UTERINE SIZE DATE DISCREPANCY - LGA 08/17/2012 649.60 Uterine Size Date Discrepancy - Lga 08/17/2012 649.60 Uterine Size Date Discrepancy - Lga 08/17/2012 EDDIE HARPER KITTY K 649.60 Uterine Size Date Discrepancy - Lga 08/17/2012 EDDIE HARPERKITTY K 649.60 Uterine Size Date Discrepancy - Lga 08/17/2012 TRAVISANNMARIE Estevez APRNIDI A 649.60 Uterine Size Date Discrepancy - Lga 08/17/2012 SAMANTHA DAVISON APRN R 649.60 Uterine Size Date Discrepancy - Lga 08/17/2012 EDDIE HARPERKITTY K 649.60 Uterine Size Date Discrepancy - Lga 11/16/2012 V24.2 F/U, ROUTINE 11/16/2012 V25.09 CONTRACEPTIVE COUNSELING - GENERAL 11/16/2012 V24.2 F/U, ROUTINE 11/16/2012 V25.09 CONTRACEPTIVE COUNSELING - GENERAL 11/16/2012 KITTY MORGAN DO V24.2 F/U, ROUTINE 11/16/2012 KITTY MORGAN DO V25.09 CONTRACEPTIVE COUNSELING - GENERAL 11/16/2012 KITTY MORGAN DO V24.2 F/U, ROUTINE 11/16/2012 KITTY MORGAN DO V25.09 CONTRACEPTIVE COUNSELING - GENERAL 11/16/2012 TRAVISANNMARIE Estevez APRNIDI A V24.2 F/U, ROUTINE 11/16/2012 TRAVISCLARITA HILLMAN BOB A V25.09 CONTRACEPTIVE COUNSELING - GENERAL 11/16/2012 CAITLYN DAVISON APRNINA R V24.2 F/U, ROUTINE 11/16/2012 SAMANTHA DAVISON APRN R V25.09 CONTRACEPTIVE COUNSELING - GENERAL 11/16/2012 KITTY MORGAN DO V24.2 F/U, ROUTINE 11/16/2012 KITTY MORGAN DO V25.09 CONTRACEPTIVE COUNSELING - GENERAL 03/14/2013 466.0 BRONCHITIS, ACUTE 03/14/2013 MORGAN KARINAA K 466.0 BRONCHITIS, ACUTE 03/14/2013 EDDIE HARPER, KITTY K 466.0 BRONCHITIS, ACUTE 03/14/2013 TRAVIS SUPPORT ASSOCIATE, BOB A 466.0 BRONCHITIS, ACUTE 03/14/2013 SAMAN HILLMAN, SAMANTHA R 466.0 BRONCHITIS, ACUTE 03/14/2013 EDDIE HARPER KITTY K 466.0 BRONCHITIS, ACUTE 08/29/2013 MORGAN DO KITTY K 724.2 LUMBAGO/ LOW BACK PAIN 08/29/2013 EDDIE HARPER KITTY K 785.6 LYMPHADENOPATHY 08/29/2013 TRAVIS SUPPORT ASSOCIATE, BOB A 724.2 LUMBAGO/ LOW BACK PAIN 08/29/2013 TRAVIS SUPPORT ASSOCIATE, BOB A 785.6 LYMPHADENOPATHY 08/29/2013 SAMAN HILLMAN, SAMANTHA R 724.2 LUMBAGO/ LOW BACK PAIN 08/29/2013 SAMAN HILLMAN SAMANTHA R 785.6 LYMPHADENOPATHY 08/29/2013 EDDIE HARPER KITTY K 724.2 LUMBAGO/ LOW BACK PAIN 08/29/2013 EDDIE HARPER, KITTY K 785.6 LYMPHADENOPATHY 10/27/2013 GIOVANNI GRIGGS DO K Ot 719.41 JOINT PAIN-SHLDER 10/27/2013 TEN GRIGGS DOA K Ot 723.1 CERVICALGIA 04/13/2014 SAMAN HILLMAN SAMANTHA R 300.00 ANXIETY STATE UNSPECIFIED 04/13/2014 SAMAN HILLMAN SAMANTHA R 311 DEPRESSIVE DISORDER NOT ELSEWHERE CLASSIFIED 04/13/2014 KARINA MORGAN DOA K 300.00 ANXIETY STATE UNSPECIFIED 04/13/2014 KARINA MORGAN DOA K 311 DEPRESSIVE DISORDER NOT ELSEWHERE CLASSIFIED 10/24/2014 EDDIE HARPER KITTY K V72.41 TEST NEGATIVE RESULT 12/10/2016 LUIS ALFREDO MATTHEWS Ot J01.91 ACUTE RECURRENT SINUSITIS, UNSPECIFIED 12/10/2016 LUIS ALFREDO MATTHEWS Ot J01.91 ACUTE RECURRENT SINUSITIS, UNSPECIFIED 12/28/2016 LUIS ALFREDO MATTHEWS Ot J01.91 ACUTE RECURRENT SINUSITIS, UNSPECIFIED 02/26/2017 SHERRILL HARVEY, KARRIE Guillen Ot J32.9 CHRONIC SINUSITIS, UNSPECIFIED 02/26/2017 KARRIE [...] J34.3 HYPERTROPHY OF NASAL TURBINATES 04/12/2017 KARRIE MCCARTNYE MD Ot J45.909 UNSPECIFIED ASTHMA, UNCOMPLICATED 12/01/2017 PATRICE KOO SUPPORT ASSOCIATE Ot J45.901 UNSPECIFIED ASTHMA WITH (ACUTE) EXACERBA 12/01/2017 PATRICE KOO SUPPORT ASSOCIATE Ot R06.02 SHORTNESS OF BREATH 12/01/2017 PATRICE KOO SUPPORT ASSOCIATE Ot Z88.1 ALLERGY STATUS TO OTHER ANTIBIOTIC AGENT 12/01/2017 CASSIELUIS E SOTOJustice PATRICK Ot J01.91 ACUTE RECURRENT SINUSITIS, UNSPECIFIED 12/01/2017 KARRIE MCCARTNEY MD Ot J32.9 CHRONIC SINUSITIS, UNSPECIFIED 12/01/2017 KARRIE MCCARTNEY MD Ot J33.8 OTHER POLYP OF SINUS 12/03/2017 PATRICE KOO APRN Ot J45.901 UNSPECIFIED ASTHMA WITH (ACUTE) EXACERBA 12/03/2017 PATRICE KOO APRN Ot R06.02 SHORTNESS OF BREATH 12/03/2017 PATRICE KOO SUPPORT ASSOCIATE Ot Z88.1 ALLERGY STATUS TO OTHER ANTIBIOTIC AGENT 04/19/2018 DELLAMONT DO, KINGS B Ot Z01.818 ENCOUNTER FOR OTHER PREPROCEDURAL EXAMIN 04/20/2018 CARLOSMAN DO KINGS B Ot Z01.818 ENCOUNTER FOR OTHER [...] Z01.818 ENCOUNTER FOR OTHER PREPROCEDURAL EXAMIN 04/29/2018 REKHA DO KINGS B Ot J45.909 UNSPECIFIED ASTHMA, UNCOMPLICATED 04/29/2018 DELMAN DO, KINGS B Ot K62.89 OTHER SPECIFIED DISEASES OF ANUS AND REC 04/29/2018 REKHA DO, KINGS B Ot L02.214 CUTANEOUS ABSCESS OF GROIN 05/03/2018 REKHA DO KINGS B Ot J45.909 UNSPECIFIED ASTHMA, UNCOMPLICATED 05/03/2018 DELLAMONT DO KINGS B Ot K62.89 OTHER SPECIFIED DISEASES OF ANUS AND REC 05/03/2018 REKHA DO KINGS B Ot L02.214 CUTANEOUS ABSCESS OF GROIN 05/04/2018 REKHA HARPER KINGS B Ot J45.909 UNSPECIFIED ASTHMA, UNCOMPLICATED 05/04/2018 REKHA HARPER KINGS B Ot K62.89 OTHER SPECIFIED DISEASES OF ANUS AND REC 05/04/2018 REKHA DO KINGS B Ot L02.214 CUTANEOUS ABSCESS OF GROIN 05/05/2018 REKHA HARPER KINGS B Ot J45.909 UNSPECIFIED ASTHMA, UNCOMPLICATED 05/05/2018 REKHA HARPER KINGS B Ot K62.89 OTHER SPECIFIED DISEASES OF ANUS AND REC 05/05/2018 REKHA DO KINGS B Ot L02.214 CUTANEOUS ABSCESS OF GROIN 11/04/2018 REKHA HARPER KINGS B Ot Z01.818 ENCOUNTER FOR OTHER PREPROCEDURAL EXAMIN 11/07/2018 KINGS DA SILVA DO B Ot Z01.818 ENCOUNTER FOR OTHER PREPROCEDURAL EXAMIN 11/09/2018 LUIS ALFREDO MATTHEWS Ot J01.91 ACUTE RECURRENT SINUSITIS, UNSPECIFIED 11/09/2018 SHERRILL HARVEY, KARRIE P Ot J32.9 CHRONIC SINUSITIS, UNSPECIFIED 11/09/2018 KARRIE MCCARTNEY MD Ot J33.8 OTHER POLYP OF SINUS 11/09/2018 KUSUM DA SILVA DOIC B Ot J45.909 UNSPECIFIED ASTHMA, UNCOMPLICATED 11/09/2018 KUSUM DA SILVA DOIC B Ot K20.9 ESOPHAGITIS, UNSPECIFIED 11/09/2018 REKHA HARPER KINGS B Ot K29.70 GASTRITIS, UNSPECIFIED, WITHOUT BLEEDING 11/09/2018 REKHA HARPER KINGS B Ot K31.7 POLYP OF STOMACH AND DUODENUM 11/09/2018 KUSUM DA SILVA DOIC B Ot R05 COUGH 11/10/2018 REKHA HARPER KINGS B Ot Z01.818 ENCOUNTER FOR OTHER PREPROCEDURAL EXAMIN 11/14/2018 REKHA HARPER KINGS B Ot J45.909 UNSPECIFIED ASTHMA, UNCOMPLICATED 11/14/2018 REKHA HARPER KINGS B Ot K20.9 ESOPHAGITIS, UNSPECIFIED 11/14/2018 REKHA HARPER KINGS B Ot K29.70 GASTRITIS, UNSPECIFIED, WITHOUT BLEEDING 11/14/2018 REKHA HARPER KINGS B Ot K31.7 POLYP OF STOMACH AND DUODENUM 11/14/2018 REKHA HARPER KINGS B Ot R05 COUGH 11/16/2018 KUSUM DA SILVA DOIC B Ot J45.909 UNSPECIFIED ASTHMA, UNCOMPLICATED 11/16/2018 REKHA HARPER, KINGS B Ot K20.9 ESOPHAGITIS, UNSPECIFIED 11/16/2018 REKHA HARPER, KINGS B Ot K29.70 GASTRITIS, UNSPECIFIED, WITHOUT BLEEDING 11/16/2018 KUSUM DA SILVA DOIC B Ot K31.7 POLYP OF STOMACH AND DUODENUM 11/16/2018 REKHA HARPER, KINGS B Ot R05 COUGH 11/27/2018 REKHA HARPER, KINGS B Ot R05 COUGH 12/08/2018 REKHA HARPER, KINGS B Ot R05 COUGH 01/08/2019 PRINCESS DOATUL Ot J32.4 CHRONIC PANSINUSITIS 02/07/2019 PRINCESS DOATUL M Ot J32.4 CHRONIC PANSINUSITIS 03/08/2019 PRINCESS DOATUL M Ot J32.4 CHRONIC PANSINUSITIS 03/17/2019 BREA JAMES APRN Ot J45.909 UNSPECIFIED ASTHMA, UNCOMPLICATED 03/17/2019 Ot J30.9 ALLERGIC RHINITIS, UNSPECIFIED 03/17/2019 Ot J45.50 SEVERE PERSISTENT ASTHMA, UNCOMPLICATED 03/17/2019 Ot R05 COUGH 03/21/2019 BREA JAMES SUPPORT ASSOCIATE Ot J45.909 UNSPECIFIED ASTHMA, UNCOMPLICATED 03/31/2019 BREA JAMES APRN Ot J45.909 UNSPECIFIED ASTHMA, UNCOMPLICATED 03/31/2019 Ot J30.9 ALLERGIC RHINITIS, UNSPECIFIED 03/31/2019 Ot J45.50 SEVERE PERSISTENT ASTHMA, UNCOMPLICATED 03/31/2019 Ot R05 COUGH 04/09/2019 BREA JAMES SUPPORT ASSOCIATE Ot J30.9 ALLERGIC RHINITIS, UNSPECIFIED 04/09/2019 BREA JAMES SUPPORT ASSOCIATE Ot J45.50 SEVERE PERSISTENT ASTHMA, UNCOMPLICATED 04/09/2019 BREA JAMES SUPPORT ASSOCIATE Ot K29.50 UNSPECIFIED CHRONIC GASTRITIS WITHOUT BL 04/19/2019 BREA JAMES SUPPORT ASSOCIATE Ot J30.9 ALLERGIC RHINITIS, UNSPECIFIED 04/19/2019 BREA JAMES SUPPORT ASSOCIATE Ot J45.50 SEVERE PERSISTENT ASTHMA, UNCOMPLICATED 04/19/2019 BREA JAMES SUPPORT ASSOCIATE Ot K29.50 UNSPECIFIED CHRONIC GASTRITIS WITHOUT BL 05/19/2019 LUIS ALFREDO MATTHEWS Ot J01.91 ACUTE RECURRENT SINUSITIS, UNSPECIFIED 05/19/2019 SHERRILL HARVEY, KARRIE Guillen Ot J32.9 CHRONIC SINUSITIS, UNSPECIFIED 05/19/2019 KARRIE MCCARTNEY MD Ot J33.8 OTHER POLYP OF SINUS 05/19/2019 KINGS DA SILVA DO B Ot R05 COUGH 05/19/2019 BREA JAMES APRN Ot J45.909 UNSPECIFIED ASTHMA, UNCOMPLICATED 05/19/2019 ATUL SÁNCHEZ DO Ot J32.4 CHRONIC PANSINUSITIS 05/19/2019 Ot J30.9 ALLERGIC RHINITIS, UNSPECIFIED 05/19/2019 Ot J45.50 SEVERE PERSISTENT ASTHMA, UNCOMPLICATED 05/19/2019 Ot R05 COUGH 05/19/2019 BREA JAMES APRN Ot J30.9 ALLERGIC RHINITIS, UNSPECIFIED 05/19/2019 BREA JAMES APRN Ot J45.50 SEVERE PERSISTENT ASTHMA, UNCOMPLICATED 05/19/2019 BREA JAMES APRN Ot K29.50 UNSPECIFIED CHRONIC GASTRITIS WITHOUT BL Procedures Code Description [place] [address] UA OB DIP 08/17/2012 55421 US OB ULTRASOUND 08/31/2012 09787 UA OB DIP 08/31/2012 61504 UA OB DIP 09/14/2012 08815 CULTURE GROUP B STREP VAG 09/18/2012 15285 UA OB DIP 09/21/2012 30630 US OB ULTRASOUND 09/21/2012 88410 UA OB DIP 09/28/2012 91279 HERPES SIMPLEX CULTURE 07/10/2013 19219 ROUTINE VENIPUNCTURE 08/29/2013 61149 MONO TEST (IN-HOUSE) 08/29/2013 21572 CBC 08/29/2013 [id number] GFR CALC (RESULT ONLY) 08/29/2013 74575 CMP 08/29/2013 63868 URINE TEST (IN-HOUSE) 10/12/2013 01244 ROUTINE VENIPUNCTURE 04/13/2014 74120 CMP 04/13/2014 [id number] GFR CALC (RESULT ONLY) 04/13/2014 76527 TSH 04/13/2014 24840 TEST, URINE (IN-HOUSE) 10/24/2014 Results Test Result Range Urine beta human chorionic gonadotropin (hCG) measurement - 04/09/17 08:10 Urine beta human chorionic gonadotropin (hCG) measurement NEGATIVE NEGATIVE Methicillin resistant Staphylococcus aureus (MRSA) screening culture - 04/09/17 08:30 Methicillin resistant Staphylococcus aureus (MRSA) screening [...] Automated erythrocyte mean corpuscular hemoglobin concentration measurement (mass/volume) 33 g/dL 32-36 Automated erythrocyte distribution width ratio 12.3 % 10.0- 14.5 Automated blood platelet count (count/volume) 233 10*3/uL [...] Blood monocytes automated count (number/volume) 0.6 10*3 0.0- 1.0 Automated eosinophil count 0.4 10*3/uL 0.0-0.3 Automated [...] or plasma urea nitrogen/creatinine mass ratio 23 0- 20 Serum or plasma creatinine measurement with calculation of estimated glomerular filtration rate > NRG Serum or plasma glucose measurement (mass/volume) 86 mg/dL 70-105 Serum or plasma calcium measurement (mass/volume) 9.1 mg/dL 8.5-10.1 Influenza virus A and B antigen detection - 12/01/17 16:10 FLU RESULT NEGATIVE FOR INFLUENZA A AND B ANTIGENS BY IA NRG Urine beta human chorionic gonadotropin (hCG) measurement - 04/29/18 07:30 Urine beta human chorionic gonadotropin (hCG) measurement NEGATIVE NEGATIVE Methicillin resistant Staphylococcus aureus (MRSA) screening culture - 04/29/18 07:45 Methicillin resistant Staphylococcus aureus (MRSA) screening culture NEG NRG Urine beta human chorionic gonadotropin (hCG) measurement - 11/09/18 08:10 Urine beta human chorionic gonadotropin (hCG) measurement NEGATIVE NEGATIVE [id number] - 04/03/19 07:44 Serum or plasma urea nitrogen measurement (mass/volume) 15 mg/dL 7-18 Serum or plasma creatinine measurement (mass/volume) 0.77 mg/dL 0.60-1.30 Serum or plasma urea nitrogen/creatinine mass ratio 19 NRG Serum or plasma creatinine measurement with calculation of estimated glomerular filtration rate > NRG Encounters ACCT No. Visit Date/Time Discharge Status Pt. Type Provider Facility Loc./Unit Complaint [id number] 10/24/2014 16:34:00 10/24/2014 23:59:59 CLS Outpatient KITTY MORGAN DO [id number] 04/13/2014 07:59:00 04/13/2014 23:59:59 CLS Outpatient SAMANTHA DAVISON APRN [id number] 10/12/2013 17:12:00 10/12/2013 23:59:59 CLS Outpatient BOB ROBLES APRN [id number] 08/29/2013 09:44:00 08/29/2013 23:59:59 CLS Outpatient KITTY MORGAN DO [id number] 07/06/2013 11:29:00 07/06/2013 23:59:59 CLS Outpatient KITTY MORGAN DO [id number] 11/16/2012 10:32:00 11/16/2012 23:59:59 CLS Outpatient [id number] 09/28/2012 16:06:00 09/28/2012 23:59:59 CLS Outpatient [id number] 08/31/2012 15:18:00 08/31/2012 23:59:59 CLS Outpatient KITTY MORGAN DO [id number] 03/14/2013 16:36:00 Document Registration [id number] 04/03/2019 10:22:00 04/03/2019 23:59:59 CLS Preadmit BREA JAMES SUPPORT ASSOCIATE [facility] RAD COUGH [id number] 04/03/2019 07:34:00 04/03/2019 23:59:59 CLS Outpatient LEYDA JAMESINE E SUPPORT ASSOCIATE [facility] RAD COUGH [id number] 03/15/2019 08:13:00 03/15/2019 23:59:59 CLS Outpatient LEYDA JAMESINE E SUPPORT ASSOCIATE [facility] RT ASTHMA [id number] 01/06/2019 08:00:00 01/06/2019 23:59:59 CLS Outpatient PRINCESS ATUL HARPER [facility] RAD ASTHMA [id number] 11/24/2018 09:24:00 11/24/2018 23:59:59 CLS Outpatient KINGS DA SILVA DO B [facility] RAD COUGH [id number] 11/09/2018 08:02:00 11/09/2018 10:00:00 DIS Outpatient KINGS DA SILVA DO B [facility] ENDO COUGH [id number] 11/04/2018 05:38:00 11/04/2018 12:30:00 DIS Outpatient REKHA HARPER KINGS B [facility] PREOP EGD [id number] 04/29/2018 07:22:00 04/29/2018 11:55:00 DIS Outpatient KINGS DA SILVA DO B [facility] SDC FISSURE [id number] 04/20/2018 05:32:00 04/20/2018 13:16:00 DIS Outpatient REKHA HARPER KINGS B [facility] PREOP FISSURE [id number] 12/01/2017 15:29:00 12/01/2017 17:30:00 DIS Emergency PATRICE KOO APRN [facility] ER BREATHING TROUBLE [id number] 04/09/2017 08:00:00 04/09/2017 13:30:00 DIS Outpatient KARRIE MCCARTNEY MD [facility] SDC HYPERTROPHY [id number] 04/02/2017 05:37:00 04/02/2017 14:44:00 DIS Outpatient KARRIE MCCARTNEY MD [facility] PREOP HYPERTROPHY [id number] 02/25/2017 16:28:00 02/25/2017 23:59:59 CLS Outpatient KARRIE MCCARTNEY MD [facility] RAD PANSINUSITIS,RT MAXILLARY POLYP [id number] 12/09/2016 08:01:00 12/09/2016 23:59:59 CLS Outpatient LUIS ALFREDO MATTHEWS [facility] RAD ACUTE RECURRENT SINUSITIS [id number] 10/27/2013 19:34:00 10/27/2013 20:33:00 DIS Emergency GIOVANNI GRIGGS DO [facility] ER NECK PAIN [id number] 05/19/2019 16:05:00 ACT Emergency EDUARDO TIPTON MD [facility] ER SIDE PAIN [id number] 03/15/2019 13:20:00 Document Registration [id number] 12/16/2018 09:21:00 Document Registration
--- NOTE | 2019-05-19 18:00 | ED Chest Pain ---
General Chief Complaint: Chest Wall Stated Complaint: SIDE PAIN Nursing Triage Note: PT AMBULATE TO ROOM 10 WITH CO LEFT SIDED RIB PAIN THAT HAD RADIATED TO LEFT SIDE OF NECK. STARTED APPROX 1500. PT REPORTS SHE WAS SITTING ON THE COUCH WHEN PAIN STARTED. Nursing Sepsis Screen: No Definite Risk Source: patient History of Present Illness Date Seen by Provider: May 19, 2019 Time Seen by Provider: 17:37 Initial Comments PT ARRIVES VIA POV FROM HOME STATES SHE WAS SITTING AND SUDDENLY HAD SHARP PAIN IN LEFT LOWER RIBS, UP TO LEFT CHEST, AND UP TO LEFT LATERAL NECK ALSO STATES NOW SHE IS HAVING PAIN IN LEFT GROIN AREA AND MOVING ALL THE WAY UP THE LEFT SIDE OF HER ABDOMEN BEGAN AT 1525 TODAY HAS NOT TAKEN ANYTHING FOR PAIN--STATES PAIN IS GETTING BETTER NOW NO SHORTNESS OF BREATH OR PAIN WITH BREATHING NO NAUSEA/VOMITING/DIARRHEA/CONSTIPATION NO FEVER NO COUGH OR RECENT ILLNESS NO UNUSUAL ACTIVITY, OTHER THAN LIFTING THINGS 3 DAYS AGO NO URINARY SYMPTOMS NO HISTORY OF SIMILAR LMP 1 WEEK AGO, CAME ON TIME, ONLY LASTED 3 DAYS, USUALLY LASTS 5-7. NO CONTROL PCP: GABBIE CHUN Allergies and Home Medications Allergies Coded Allergies: No Known Drug Allergies (Unverified , 04/20/18) Home Medications Albuterol Sulfate 1 Puff Puff, 2 PUFF IH Q4H, (Reported) Cetirizine HCl 10 Mg Tablet, 10 MG PO DAILY, (Reported) Patient Home Medication List Home Medication List Reviewed: Yes Review of Systems Review of Systems Constitutional: no symptoms reported EENTM: No Symptoms Reported Respiratory: No Symptoms Reported Cardiovascular: See HPI Gastrointestinal: See HPI Genitourinary: No Symptoms Reported Musculoskeletal: see HPI Skin: no symptoms reported Psychiatric/Neurological: No Symptoms Reported Endocrine: No Symptoms Reported Hematologic/Lymphatic: No Symptoms Reported Past Oplepcp-Wfbitr-Tumexc Hx Patient Social History Alcohol Use: Denies Use Recreational Drug Use: No Smoking Status: Never a Smoker 2nd Hand Smoke Exposure: No Recent Foreign Travel: No Contact w/Someone Who Travel: No Recent Infectious Disease Expo: No Recent Hopitalizations: No Physical Abuse: No Sexual Abuse: No Mistreated: Yes Fear: No Immunizations Up To Date Date of Influenza Vaccine: Aug 25, 2012 Seasonal Allergies Seasonal Allergies: Yes Past Medical History Surgeries: Yes (SINUS SURGERY; EGD; I&D OF INGUINAL ABSCESS/RECTAL EXAM UNDER ANESTHESIA) Respiratory: Yes Asthma Cardiac: No Neurological: Yes (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) : No Hx : 4 Hx Para: 3 Hx Total # of Abortions (Sp): 1 Reproductive Disorders: No Sexually Transmitted Disease: No HIV/AIDS: No Genitourinary: No Gastrointestinal: Yes (ANAL FISSURE; GASTRITIS/GASTRIC POLYP) Gastroesophageal Reflux, Esophagitis Musculoskeletal: No Endocrine: No HEENT: Yes (SINUS PROBLEMS--S/P SINUS SURGERY) Loss of Vision: Bilateral Hearing Impairment: Denies Cancer: No Psychosocial: Yes Anxiety, Depression Nursing Suicide Risk Notes: PT STATES SUICIDAL THOUGHTS APPROX TWO YEARS AGO. Integumentary: Yes (INGUINAL ABSCESS I&D) Blood Disorders: No Adverse Reaction/Blood Tranf: No (N/A) Physical Exam Vital Signs Vital Signs - First Documented 05/19/19 05/19/19 16:10 16:27 Temp 98.1 Pulse 80 Resp 18 B/P (MAP) 130/87 (101) Pulse Ox 99 O2 Delivery Room Air Capillary Refill : Less Than 3 Seconds Height, Weight, BMI Height: 5'2.00" Weight: 111lbs. 0oz. [id number]; 20.7 BMI Method:Stated General Appearance: No Apparent Distress, WD/WN HEENT: PERRL/EOMI, TMs Normal, Normal ENT Inspection, Pharynx Normal Neck: Full Range of Motion, Supple, Tender Lateral (TENDERNESS TO LEFT LATERAL NECK AND TRAPEZIUS MUSCLE WITH MILD MUSCLE SPASMS ) Respiratory: Normal Breath Sounds, No Accessory Muscle Use, No Respiratory Distress, Other (LEFT LATERAL CHEST TENDERNESS) Cardiovascular: Regular Rate, Rhythm, No Edema, No JVD, No Murmur, Normal Peripheral Pulses Gastrointestinal: Normal Bowel Sounds, No Organomegaly, No Pulsatile Mass, Soft, Tenderness (DIFFUSE TENDERNESS TO LEFT LATERAL ABDOMEN--FROM GROIN TO RIBS ON LEFT) Neurologic/Psychiatric: Alert, Oriented x3, No Motor/Sensory Deficits, Normal Mood/Affect, 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 Skin: Normal Color, Warm/Dry; No Rash Progress/Results/Core Measures Results/Orders Lab Results Laboratory Tests Test 05/19/19 17:52 05/19/19 18:08 Range/Units Urine Color ARNIE H Urine Clarity SLIGHTLY CLOUDY Urine pH 6.5 5-9 Urine Specific [place] 1.015 L 1.016-1.022 Urine Protein 1+ H NEGATIVE Urine Glucose (UA) NEGATIVE NEGATIVE Urine Ketones NEGATIVE NEGATIVE Urine Nitrite NEGATIVE NEGATIVE Urine Bilirubin NEGATIVE NEGATIVE Urine Urobilinogen 1 NORMAL MG/DL Urine Leukocyte Esterase NEGATIVE NEGATIVE Urine RBC (Auto) NEGATIVE NEGATIVE Urine RBC NONE /HPF Urine WBC RARE /HPF Urine Squamous Epithelial Cells 2-5 /HPF Urine Crystals NONE /LPF Urine Bacteria FEW H /HPF Urine Casts NONE /LPF Urine Mucus MODERATE H /LPF Urine Culture Indicated NO Urine Opiates Screen NEGATIVE NEGATIVE Urine Oxycodone Screen NEGATIVE NEGATIVE Urine Methadone Screen NEGATIVE NEGATIVE Urine Propoxyphene Screen NEGATIVE NEGATIVE Urine Barbiturates Screen NEGATIVE NEGATIVE Ur Tricyclic Antidepressants Screen NEGATIVE NEGATIVE Urine Phencyclidine Screen NEGATIVE NEGATIVE Urine Amphetamines Screen NEGATIVE NEGATIVE Urine Methamphetamines Screen NEGATIVE NEGATIVE Urine Benzodiazepines Screen NEGATIVE NEGATIVE Urine Cocaine Screen NEGATIVE NEGATIVE Urine Cannabinoids Screen NEGATIVE NEGATIVE White Blood Count 8.2 4.3-11.0 10^3/uL Red Blood Count 4.45 4.35-5.85 10^6/uL Hemoglobin 13.2 11.5-16.0 G/DL Hematocrit 40 35-52 % Mean Corpuscular Volume 90 80-99 FL Mean Corpuscular Hemoglobin 30 25-34 PG Mean Corpuscular Hemoglobin Concent 33 32-36 G/DL Red Cell Distribution Width 12.2 10.0-14.5 % Platelet Count 212 130-400 10^3/uL Mean Platelet Volume 11.0 H 7.4-10.4 FL Neutrophils (%) (Auto) 63 42-75 % Lymphocytes (%) (Auto) 24 12-44 % Monocytes (%) (Auto) 6 0-12 % Eosinophils (%) (Auto) 6 0-10 % Basophils (%) (Auto) 0 0-10 % Neutrophils # (Auto) 5.2 1.8-7.8 X 10^3 Lymphocytes # (Auto) 2.0 1.0-4.0 X 10^3 Monocytes # (Auto) 0.5 0.0-1.0 X 10^3 Eosinophils # (Auto) 0.5 H 0.0-0.3 10^3/uL Basophils # (Auto) 0.0 0.0-0.1 10^3/uL Prothrombin Time 13.3 12.2-14.7 SEC INR Comment 1.0 0.8-1.4 Activated Partial Thromboplast Time 30 24-35 SEC Sodium Level 138 135-145 MMOL/L Potassium Level 4.2 3.6-5.0 MMOL/L Chloride Level 103 98-107 MMOL/L Carbon Dioxide Level 24 21-32 MMOL/L Anion Gap 11 5-14 MMOL/L Blood Urea Nitrogen 15 7-18 MG/DL Creatinine 0.82 0.60-1.30 MG/DL Estimat Glomerular Filtration Rate > 60 BUN/Creatinine Ratio 18 Glucose Level 89 70-105 MG/DL Calcium Level 9.8 8.5-10.1 MG/DL Corrected Calcium 9.4 8.5-10.1 MG/DL Magnesium Level 2.3 1.8-2.4 MG/DL Total Bilirubin 0.5 0.1-1.0 MG/DL Aspartate Amino Transf (AST/SGOT) 14 5-34 U/L Alanine Aminotransferase (ALT/SGPT) 9 0-55 U/L Alkaline Phosphatase 53 40-136 U/L Myoglobin 13.8 10.0-92.0 NG/ML Troponin I < 0.028 <0.028 NG/ML Total Protein 7.7 6.4-8.2 GM/DL Albumin 4.5 3.2-4.5 GM/DL Amylase Level 41 25-125 U/L Lipase 25 8-78 U/L My Orders Orders - GIOVANNI GRIGGS DO Cbc With Automated Diff (05/19/19 17:52) Magnesium (05/19/19 17:52) Chest 1 View, Ap/Pa Only (05/19/19 17:52) Ekg Tracing (05/19/19 17:52) Cardiac Profile 1 (05/19/19 17:52) Comprehensive Metabolic Panel (05/19/19 17:52) Myoglobin Serum (05/19/19 17:52) Protime With Inr (05/19/19 17:52) Partial Thromboplastin Time (05/19/19 17:52) O2 (05/19/19 17:52) Monitor-Rhythm Ecg Trace Only (05/19/19 17:52) Lipid Panel (05/20/19 06:00) Ed Iv/Invasive Line Start (05/19/19 17:52) Lipase (05/19/19 17:52) Amylase (05/19/19 17:52) Drug Screen Stat (Urine) (05/19/19 17:52) Ua Culture If Indicated (05/19/19 17:52) Urine Bedside (05/19/19 17:52) Vital Signs/I&O 05/19/19 05/19/19 16:10 16:27 Temp 98.1 98.5 Pulse 80 92 Resp 18 16 B/P (MAP) 130/87 (101) 126/82 (97) Pulse Ox 99 97 O2 Delivery Room Air Blood Pressure Mean: 97 Initial ECG Impression Date: May 19, 2019 Initial ECG Impression Time: 17:52 Initial ECG Rate: 71 Initial ECG Rhythm: Normal Sinus Initial ECG Comparisson: No Previous ECG Available Diagnostic Imaging Comments CXR--NO ACUTE PROCESS, PER RADIOLOGIST REPORT AT 1855 Reviewed: Reviewed by Me Departure Impression Primary Impression: Musculoskeletal pain Disposition: 01 HOME, SELF-CARE Condition: Stable Departure-Patient Inst. Referrals: KITTY MORGAN DO (PCP) Primary Care Physician LUIS ALFREDO MATTHEWS (Family) Primary Care Physician Patient Instructions: Muscle and Bone Pain (DC), Muscle Strain (DC) Add. Discharge Instructions: FOLLOW UP WITH YOUR DR IN 2-3 DAYS IF NO BETTER All discharge instructions reviewed with patient and/or family. Voiced unders tanding. Scripts Cyclobenzaprine HCl (Cyclobenzaprine HCl) 10 Mg Tablet 10 MG PO Q8H, #10 TAB Prov: GIOVANNI GRIGGS DO 05/19/19 Naproxen (Naproxen) 500 Mg Tablet 500 MG PO BID, #20 TAB Prov: GIOVANNI GRIGGS DO 05/19/19 GIOVANNI GRIGGS DO May 19, 2019 18:00
[2019-05-19 18:05] LABS: BILIRUBIN,URINE NEGATIVE (NEGATIVE); CLARITY,URINE SLIGHTLY CLOUDY; COLOR,URINE AMBER; GLUCOSE, URINE (UA) NEGATIVE (NEGATIVE); KETONES,URINE NEGATIVE (NEGATIVE); LEUKOCYTE ESTERASE ,URINE NEGATIVE (NEGATIVE); NITRITE,URINE NEGATIVE (NEGATIVE); PH,URINE 6.5 (5-9); PROTEIN,URINE 1+ (NEGATIVE); UROBILINOGEN,URINE 1 MG/DL (NORMAL)
[2019-05-19 18:17] LABS: BASOPHILS % (AUTO) 0 % (0-10); EOSINOPHILS # (AUTO) 0.5 10^3/uL (0.0-0.3); EOSINOPHILS % (AUTO) 6 % (0-10); HEMATOCRIT 40 % (35-52); HEMOGLOBIN 13.2 G/DL (11.5-16.0); LYMPHOCYTES % (AUTO) 24 % (12-44); MEAN CORPUSCULAR HEMOGLOBIN 30 PG (25-34); MEAN CORPUSCULAR HGB CONC 33 G/DL (32-36); MEAN CORPUSCULAR VOLUME 90 FL (80-99); MONOCYTES # (AUTO) 0.5 X 10^3 (0.0-1.0); MONOCYTES % (AUTO) 6 % (0-12); NEUTROPHILS # (AUTO) 5.2 X 10^3 (1.8-7.8); NEUTROPHILS % (AUTO) 63 % (42-75); PLATELET COUNT 212 10^3/uL (130-400); RED CELL DISTRIBUTION WIDTH 12.2 % (10.0-14.5); WHITE BLOOD COUNT 8.2 10^3/uL (4.3-11.0)
[2019-05-19 18:20] LABS: BACTERIA,URINE FEW /HPF; WBC,URINE RARE /HPF
[2019-05-19 18:30] LABS: PROTHROMBIN TIME PATIENT 13.3 SEC (12.2-14.7)
[2019-05-19 18:32] LABS: AMPHETAMINE SCREEN, URINE NEGATIVE (NEGATIVE); BARBITURATE SCREEN URINE NEGATIVE (NEGATIVE); BENZODIAZEPINES SCREEN URINE NEGATIVE (NEGATIVE); CANNABINOID SCREEN, URINE NEGATIVE (NEGATIVE); COCAINE SCREEN URINE NEGATIVE (NEGATIVE); METHADONE STAT NEGATIVE (NEGATIVE); METHAMPHETAMINE SCREEN URINE S NEGATIVE (NEGATIVE); OPIATE SCREEN URINE NEGATIVE (NEGATIVE); OXYCODONE STAT NEGATIVE (NEGATIVE); PROPOXYPHENE STAT NEGATIVE (NEGATIVE); TRICYCLIC ANTIDEPRESSANTS SCRE NEGATIVE (NEGATIVE)
[2019-05-19 18:43] LABS: ALANINE AMINOTRANSFERASE 9 U/L (0-55); ALBUMIN 4.5 GM/DL (3.2-4.5); ALKALINE PHOSPHATASE 53 U/L (40-136); AMYLASE 41 U/L (25-125); BILIRUBIN,TOTAL 0.5 MG/DL (0.1-1.0); BUN/CREATININE RATIO 18; CALCIUM 9.8 MG/DL (8.5-10.1); CARBON DIOXIDE 24 MMOL/L (21-32); CHLORIDE 103 MMOL/L (98-107); CREATININE SERUM 0.82 MG/DL (0.60-1.30); GFR ESTIMATED > 60; GLUCOSE 89 MG/DL (70-105); LIPASE 25 U/L (8-78); MAGNESIUM 2.3 MG/DL (1.8-2.4); POTASSIUM 4.2 MMOL/L (3.6-5.0); SODIUM 138 MMOL/L (135-145); TOTAL PROTEIN 7.7 GM/DL (6.4-8.2)
--- NOTE | 2019-05-19 18:47 | Diagnostic Imaging Report ---
INDICATION: Left-sided chest pain. FINDINGS: Lungs are clear. Heart and vessels are normal. No effusion or pneumothorax. No free air beneath the diaphragms. IMPRESSION: Negative. Dictated by: Dictated on workstation # [id number]
[2019-05-19] MEDS ORDERED: CYCL10TA9 PO (18:57)
[2019-05-19] MEDS ORDERED: NAPR-915 PO (18:57)
[2019-05-19 19:14] VITALS: BP 118/83
== END 2019-05-19 19:14 | disposition home or self-care (01) ==
LOC: EDUNIT# 16:04 → ER 16:05
DX: M79.10 Myalgia, unspecified site (principal); J45.909 Unspecified asthma, uncomplicated; K21.0 Gastro-esophageal reflux disease with esophagitis; F41.9 Anxiety disorder, unspecified; F32.9 Major depressive disorder, single episode, unspecified; Z86.010 Personal history of colon polyps
CPT/HCPCS: 36415; 71045; 80053; 80306; 81000; 82150; 83690; 83735; 83874; 84484; 84703; 85025; 85610; 85730; 93005; 93041

== ENCOUNTER → 2019-12-13 | Outpatient (CLI) | payer MEDICAID ==
[~2019-12-13] MED LIST changes: +NAPR-915 PO
--- NOTE | 2019-12-13 17:38 | Diagnostic Imaging Report ---
HISTORY: Abdominal pain and discomfort. Chest pain. COMPARISON: 05/19/2019 TECHNIQUE: Frontal view of the chest. Upright and supine frontal views of the abdomen. FINDINGS: Lung volumes are normal. No focal consolidation is seen. There is no pleural effusion or pneumothorax. The cardiac silhouette is normal in size and contour. Bowel loops are nondistended without obstruction. Moderate stool seen in the ascending colon. No large collection of free air is seen. No acute osseous abnormality is seen. IMPRESSION: 1. No bowel obstruction or large collection of free air. 2. No acute pulmonary abnormality. Dictated by: Dictated on workstation # [id number]
== END ==
LOC: RAD 15:59
PROVIDERS: ATTEND Surgery
DX: R10.9 Unspecified abdominal pain (principal)
CPT/HCPCS: 74022

== ENCOUNTER 2019-12-21 05:42 | Outpatient (CLI) | payer MEDICAID ==
[~2019-12-21] VITALS: Ht 160 cm; Wt 51.4 kg
[~2019-12-21 05:42] MED LIST changes: -CETI10TA20 PO; +CETI10TA21 PO; -MONT10TA24; +MONT10TA26
[2019-12-21] MEDS ORDERED: FAMO40TA72 PO (13:57)
== END 2019-12-21 14:10 | disposition home or self-care (01) ==
LOC: PREOP 05:42
PROVIDERS: ATTEND Surgery
DX: Z01.818 Encounter for other preprocedural examination (principal)

== ENCOUNTER 2020-01-02 09:59 | Outpatient (RCR) | payer MEDICAID ==
[~2020-01-02 09:59] MED LIST changes: +FAMO40TA72 PO
== END 2020-03-19 | disposition home or self-care (01) ==
PROVIDERS: ATTEND Surgery
DX: R07.81 Pleurodynia (principal)

== ENCOUNTER → 2020-01-12 | Outpatient (CLI) | payer MEDICAID ==
[~2020-01-12] MED LIST changes: +GADOBUTROL 7.5 MMOL/7.5 ML (GADAVIST) VIAL IV ONE
--- NOTE | 2020-01-12 10:55 | Diagnostic Imaging Report ---
PROCEDURE: MR imaging of the brain with and without contrast. TECHNIQUE: Multiplanar, multisequence MR imaging of the brain was performed with and without contrast. INDICATION: Loss of smell. Correlation is made with prior MRI of the brain from 01/06/2019. FINDINGS: The diffusion weighted images remain unremarkable. The normal expected flow-voids within the carotid siphons are seen. No white matter changes are identified. There is no midline shift. No acute intra-axial or extra-axial hemorrhage is detected. Corpus callosum is unremarkable. Sella and parasellar structures are unremarkable. No abnormal enhancement following contrast administration is seen. There continues to be significant paranasal sinus disease. There is opacification of frontal and ethmoid air cells. There is mucosal thickening of the sphenoid and significant mucosal thickening bilateral maxillary sinuses. This is similar to prior exam. There is less fluid in the sphenoid compared with prior study. IMPRESSION: 1. Continued findings of pansinusitis. 2. Continued stable unremarkable MRI of the brain with and without contrast. Dictated by: Dictated on workstation # [id number]
== END ==
LOC: RAD 09:50
PROVIDERS: ATTEND Psychiatry & Neurology Neurology
DX: J32.9 Chronic sinusitis, unspecified (principal); R43.0 Anosmia
CPT/HCPCS: 70553

== ENCOUNTER → 2021-04-23 | Outpatient (CLI) | payer OTHER ==
[~2021-04-23] MED LIST changes: -CETI10TA21 PO; +CETI10TA49 PO; -GADOBUTROL 7.5 MMOL/7.5 ML (GADAVIST) VIAL IV ONE; -MONT10TA26; +MONT10TA32
== END ==
LOC: RAD 12:45
PROVIDERS: ATTEND Pediatrics
DX: N63.0 Unspecified lump in unspecified breast (principal); Z53.9 Procedure and treatment not carried out, unspecified reason

== ENCOUNTER 2023-06-05 20:53 | Emergency (ER) | payer MEDICAID ==
[~2023-06-05] VITALS: Ht 158 cm; Wt 55.0 kg
[~2023-06-05 20:53] MED LIST changes: +ALBU8.5H6 IH; +CYCL10TA25 PO; +LEVO-55; -LEVO500T80; +MONT-40; -MONT10TA32; -RT-ALBUINH IH
[2023-06-05] MEDS ORDERED: DOXY-444 (21:01)
[2023-06-05] MEDS ORDERED: ALBUTEROL (21:01)
[2023-06-05] MEDS ORDERED: PRD50T (21:01)
[2023-06-05] MEDS ORDERED: RT-ALBUTEROL SULF 2.5 MG/3 ML PRE-MIX VIAL INH STA (21:01)
[2023-06-05] MEDS ORDERED: MONT-40 (21:01)
--- NOTE | 2023-06-05 21:08 | ED Respiratory ---
General Chief Complaint: Respiratory Problems Stated Complaint: SOA Source: patient Exam Limitations: no limitations (ALDAIR WHYTE) History of Present Illness Date Seen by Provider: Jun 05, 2023 Time Seen by Provider: 21:07 Initial Comments Patient is a 32-year-old female presents ED with a productive cough and sh ortness of breath with wheezing. This has progressively gotten worse over the past month. This has been intermittent. This became worse this evening while working at the [employer]. she states she has been seen at the clinic May 28 and has received a steroid shot, and was placed on doxycycline concern for atypical pneumonia. She is currently on the doxycycline at this time but denies oral steroids. She does work in a [employer]. History of allergies. She does report using an inhaler which she has been using without much improvement. On arrival difficulty talking complete sentences. Obvious wheezing. She denies of any fever, chills, nausea, vomiting, diarrhea. She denies any chest pain or tightness. Patient denies history of smoking (ALDAIR WHYTE) Allergies and Home Medications Allergies Coded Allergies: No Known Drug Allergies (Unverified , 04/20/18) Patient Home Medication List Home Medication List Reviewed: Yes (ALDAIR WHYTE) Albuterol Sulfate (Albuterol Sulfate) 2.5 Mg/3 Ml (0.083 %) Vial.neb, 2.5 MG INH Q4H Prescribed by: KURT JALLOH on 06/05/232225 Cetirizine HCl (Zyrtec) 10 Mg Tablet, 10 MG PO DAILY, (Reported) Entered as Reported by: APRIL SUAREZ on 04/02/17 1436 Doxycycline Monohydrate (Doxycycline Monohydrate) 100 Mg Capsule, (Reported) Entered as Reported by: PAVITHRA LOOMIS on 06/05/232100 Last Action: New Order Famotidine (Pepcid) 40 Mg Tablet, 40 MG PO DAILY, (Reported) Entered as Reported by: APRIL SUAREZ on 12/21/19 1357 Montelukast Sodium (Montelukast Sodium) 10 Mg Tablet, (Reported) Entered as Reported by: PAVITHRA LOOMIS on 06/05/232100 Last Action: New Order Prednisone (Prednisone) 50 Mg Tab, (Reported) Entered as Reported by: PAVITHRA LOOMIS on 06/05/232100 Last Action: New Order Prednisone (Prednisone) 20 Mg Tab, 40 MG PO DAILY Prescribed by: KURT JALLOH on 06/05/232225 [Albuterol] , (Reported) Entered as Reported by: PAVITHRA LOOMIS on 06/05/232100 Last Action: New Order Discontinued Medications Albuterol Sulfate (Albuterol Sulfate) 2.5 Mg/3 Ml (0.083 %) Vial.neb, 2.5 MG INH Q4H Prescribed by: KURT JALLOH on 06/05/232215 Prednisone (Prednisone) 20 Mg Tab, 40 MG PO DAILY Prescribed by: KURT JALLOH on 06/05/232206 Review of Systems Review of Systems Constitutional: No chills, No diaphoresis, No malaise, No weakness EENTM: No ear pain, No blurred vision, No double vision Respiratory: cough, short of breath, wheezing Cardiovascular: No chest pain Gastrointestinal: No abdominal pain, No diarrhea, No nausea, No vomiting Genitourinary: No decreased output, No discharge Musculoskeletal: No back pain, No joint pain Skin: No change in color, No change in hair/nails (ALDAIR WHYTE) All Other Systems Reviewed Negative Unless Noted: Yes (ALDAIR WHYTE) Past Athofjf-Akvtpc-Qtwmgd Hx Patient Social History Tobacco Use?: No Substance use?: No Alcohol Use?: No Pt feels they are or have been: No (ALDAIR WHYTE) Seasonal Allergies Seasonal Allergies: Yes (ALDAIR WHYTE) Past Medical History Surgery/Hospitalization HX: ASTHMA, GERD, I/D, SINUS Surgeries: Yes (SINUS SURGERY; EGD; I&D OF INGUINAL ABSCESS/RECTAL EXAM UNDER ANESTHESIA) Respiratory: Yes Asthma Cardiac: No Neurological: Yes (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) Reproductive Disorders: No Sexually Transmitted Disease: No HIV/AIDS: No Genitourinary: No Gastrointestinal: Yes (ANAL FISSURE; GASTRITIS/GASTRIC POLYP) Gastroesophageal Reflux, Esophagitis Musculoskeletal: No Endocrine: No HEENT: Yes (SINUS PROBLEMS--S/P SINUS SURGERY) Loss of Vision: Bilateral Hearing Impairment: Denies Cancer: No Psychosocial: Yes Anxiety, Depression Integumentary: Yes (INGUINAL ABSCESS I&D) Blood Disorders: No Adverse Reaction/Blood Tranf: No (N/A) (ALDAIR WHYTE) Physical Exam Vital Signs - First Documented 06/05/23 21:12 O2 Flow Rate 2.00 (GIOVANNI GRIGGS DO) Capillary Refill : (ALDAIR WHYTE) Height: 5'2.00" Weight: 111lbs. 0oz. 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, no motor/sensory deficits, alert, normal mood/affect, oriented x 3 Skin: normal color, warm/dry (ALDAIR WHYTE) Progress/Results/Core Measures Suspected Sepsis SIRS Temperature: Pulse: Respiratory Rate: Laboratory Tests 06/05/23 21:02: White Blood Count 10.4 Blood Pressure / Mean: Laboratory Tests 06/05/23 21:02: Creatinine 0.88, Platelet Count 273, Total Bilirubin 0.3 (ALDAIR WHYTE) Results/Orders Lab Results Laboratory Tests Test 06/05/23 21:02 06/05/23 21:13 Range/Units White Blood Count 10.4 4.3-11.0 10^3/uL Red Blood Count 4.58 3.80-5.11 10^6/uL Hemoglobin 14.1 11.5-16.0 g/dL Hematocrit 43 35-52 % Mean Corpuscular Volume 93 80-99 fL Mean Corpuscular Hemoglobin 31 25-34 pg Mean Corpuscular Hemoglobin Concent 33 32-36 g/dL Red Cell Distribution Width 11.8 10.0-14.5 % Platelet Count 273 130-400 10^3/uL Mean Platelet Volume 10.4 9.0-12.2 fL Immature Granulocyte % (Auto) 0 % Neutrophils (%) (Auto) 49 42-75 % Lymphocytes (%) (Auto) 28 12-44 % Monocytes (%) (Auto) 7 0-12 % Eosinophils (%) (Auto) 15 H 0-10 % Basophils (%) (Auto) 1 0-10 % Neutrophils # (Auto) 5.1 1.8-7.8 10^3/uL Lymphocytes # (Auto) 2.9 1.0-4.0 10^3/uL Monocytes # (Auto) 0.8 0.0-1.0 10^3/uL Eosinophils # (Auto) 1.6 H 0.0-0.3 10^3/uL Basophils # (Auto) 0.1 0.0-0.1 10^3/uL Immature Granulocyte # (Auto) 0.0 0.0-0.1 10^3/uL Neutrophils % (Manual) 49 % Lymphocytes % (Manual) 26 % Monocytes % (Manual) 8 % Eosinophils % (Manual) 17 % Blood Morphology Comment NORMAL Sodium Level 140 135-145 MMOL/L Potassium Level 3.9 3.6-5.0 MMOL/L Chloride Level 108 H 98-107 MMOL/L Carbon Dioxide Level 21 21-32 MMOL/L Anion Gap 11 5-14 MMOL/L Blood Urea Nitrogen 19 H 7-18 MG/DL Creatinine 0.88 0.60-1.30 MG/DL Estimat Glomerular Filtration Rate 89 BUN/Creatinine Ratio 22 Glucose Level 80 70-105 MG/DL Calcium Level 9.7 8.5-10.1 MG/DL Corrected Calcium 9.3 8.5-10.1 MG/DL Total Bilirubin 0.3 0.1-1.0 MG/DL Aspartate Amino Transf (AST/SGOT) 18 5-34 U/L Alanine Aminotransferase (ALT/SGPT) 16 0-55 U/L Alkaline Phosphatase 51 40-136 U/L Total Protein 8.1 6.4-8.2 GM/DL Albumin 4.5 3.2-4.5 GM/DL Influenza Type A (RT-PCR) Not Detected Not Detecte Influenza Type B (RT-PCR) Not Detected Not Detecte SARS-CoV-2 RNA (RT-PCR) Not Detected Not Detecte (GIOVANNI GRIGGS DO) Medications Given in ED Current Medications Medications Dose Ordered Sig/[place] Route Start Time Stop Time Status Last Admin Dose Admin Albuterol/ Ipratropium 3 ml ONCE ONCE INH 06/05/23 21:15 06/05/23 21:16 DC 06/05/23 21:11 3 ML Methylprednisolone Sodium Succinate 80 mg ONCE ONCE IV 06/05/23 21:15 06/05/23 21:16 DC 06/05/23 21:11 80 MG (GIOVANNI GRIGGS DO) Vital Signs/I&O 06/05/23 06/05/23 06/05/23 06/05/23 20:58 20:58 21:12 22:24 Temp 36.7 36.4 Pulse 112 109 Resp 20 12 B/P (MAP) 138/107 (117) 137/65 Pulse Ox 94 98 99 O2 Delivery Room Air Room Air Nasal Cannula Room Air O2 Flow Rate 2.00 (GIOVANNI GRIGGS DO) Vital Signs/I&O Capillary Refill : (ALDAIR WHYTE) Departure Communication (PCP) Patient is a 32-year-old female with a history of asthma presents ED with shortness of breath, cough. She states she has been having symptoms over the past month. She states she was seen at the clinic on May 28. Received a dose of IM steroid. She received a breathing treatment and was placed on doxycycline which she is still taking. She Was diagnosed with atypical pneumonia with secondary asthma exacerbation. Patient does work in a casino. On arrival diffuse wheezing and difficulty talking complete sentences with oxygen in the lower 90s. She was placed on 2 L oxygen for comfort and started a hour-long albuterol/DuoNeb breathing treatment. CBC, CMP, chest x-ray COVID influenza was ordered. She was tachycardic. She received Solu-Medrol 80 mg. CBC, CMP grossly unremarkable. Chest ray was negative for pneumonia. COVID influenza was negative. After a hour-long breathing treatment patient's breathing improved. She was able to talk in complete sentences. She was observed here for additional hour. Patient states she is feeling much better at this time and would like to be discharged. Patient was given a dose of short burst steroids. We will refill her albuterol canisters for her nebulizer machine at home. She does have a rescue inhaler as needed. Discussed that she would likely benefit not working at the [employer] due to the smoking. Finish antibiotics. Provided a work note for this evening. If any worsening breathing, wheezing , chest tightness return back to ED. discussed with patient to talk to her primary care physician to discuss other preventative medication options. She does not believe she is on any steroid inhalers. (ALDAIR WHYTE) Impression Primary Impression: Asthma exacerbation Disposition: HOME, SELF-CARE Condition: Stable Departure-Patient Inst. Decision time for Depature: 21:19 (ALDAIR WHYTE) Referrals: [facility]/ (PCP) Primary Care Physician LUIS ALFREDO MATTHEWS (Family) Primary Care Physician Patient Instructions: Asthma, Adult ED Scripts Albuterol Sulfate (Albuterol Sulfate) 2.5 Mg/3 Ml (0.083 %) Vial.neb 2.5 MG INH Q4H, #20 EA Prov: ALDAIR WHYTE 06/05/23 Prednisone (Prednisone) 20 Mg Tab 40 MG PO DAILY for 4 Days, #8 TAB Prov: ALDAIR WHYTE 06/05/23 Work/School Note: Work Release Form Date Seen in the Emergency Department: Jun 05, 2023 Return to Work: Jun 06, 2023 ATTENDING PHYSICIAN NOTE: I WAS PHYSICALLY PRESENT ER PHYSICIAN, BUT I WAS NOT INVOLVED IN ANY DECISION MAKING OR ANY CARE OF THIS PATIENT, AND I AM NOT COLLABORATING PHYSICIAN. (GIOVANNI GRIGGS DO) ALDAIR WHYTE Jun 05, 2023 21:08 GIOVANNI GRIGGS DO Jun 06, 2023 03:59
[2023-06-05 21:11] LABS: BASOPHILS # (AUTO) 0.1 10^3/uL (0.0-0.1); BASOPHILS % (AUTO) 1 % (0-10); EOSINOPHILS # (AUTO) 1.6 10^3/uL (0.0-0.3); EOSINOPHILS % (AUTO) 15 % (0-10); HEMATOCRIT 43 % (35-52); HEMOGLOBIN 14.1 g/dL (11.5-16.0); LYMPHOCYTES # (AUTO) 2.9 10^3/uL (1.0-4.0); LYMPHOCYTES % (AUTO) 28 % (12-44); MEAN CORPUSCULAR HEMOGLOBIN 31 pg (25-34); MEAN CORPUSCULAR HGB CONC 33 g/dL (32-36); MEAN CORPUSCULAR VOLUME 93 fL (80-99); MEAN PLATELET VOLUME 10.4 fL (9.0-12.2); MONOCYTES # (AUTO) 0.8 10^3/uL (0.0-1.0); MONOCYTES % (AUTO) 7 % (0-12); NEUTROPHILS # (AUTO) 5.1 10^3/uL (1.8-7.8); NEUTROPHILS % (AUTO) 49 % (42-75); PLATELET COUNT 273 10^3/uL (130-400); WHITE BLOOD COUNT 10.4 10^3/uL (4.3-11.0)
[2023-06-05] MEDS ORDERED: RT-Ipratropium/Albuterol NEB 3 ML VIAL INH ONE (21:15)
[2023-06-05] MEDS ORDERED: methylPREDNISolone INJ 40 MG/ML VIAL IV ONE (21:15)
[2023-06-05 21:18] LABS: ALBUMIN 4.5 GM/DL (3.2-4.5); POTASSIUM 3.9 MMOL/L (3.6-5.0)
[2023-06-05 21:20] LABS: CALCIUM 9.7 MG/DL (8.5-10.1)
[2023-06-05 21:21] LABS: TOTAL PROTEIN 8.1 GM/DL (6.4-8.2)
[2023-06-05 21:23] LABS: BILIRUBIN,TOTAL 0.3 MG/DL (0.1-1.0)
[2023-06-05 21:24] LABS: CREATININE SERUM 0.88 MG/DL (0.60-1.30)
--- NOTE | 2023-06-05 21:32 | Diagnostic Imaging Report ---
EXAM: Chest 1 view, AP/PA only. INDICATION: Cough. COMPARISON: 05/19/2019. FINDINGS: Normal heart size and central pulmonary vascularity. Lungs are clear. No pleural effusion or pneumothorax. No acute osseous finding. No significant change. IMPRESSION: No acute cardiopulmonary finding. Dictated by: Dictated on workstation # [id number]
[2023-06-05 21:41] LABS: EOSINOPHILS % (MANUAL) 17 %; LYMPHOCYTES % (MANUAL) 26 %; MONOCYTES % (MANUAL) 8 %; NEUTROPHILS % (MANUAL) 49 %; RBC MORPH NORMAL
[2023-06-05] MEDS ORDERED: PRD20T PO ×2 (22:07→22:26)
[2023-06-05] MEDS ORDERED: ALBU2.5V4 INH ×2 (22:16→22:26)
[2023-06-05 22:24] VITALS: BP 137/65
== END 2023-06-05 22:24 | disposition home or self-care (01) ==
LOC: EDUNIT# 20:53 → ER 20:56
DX: J45.901 Unspecified asthma with (acute) exacerbation (principal); J18.9 Pneumonia, unspecified organism; R00.0 Tachycardia, unspecified; Z20.822 Contact with and (suspected) exposure to COVID-19
CPT/HCPCS: 36415; 71045; 80053; 85007; 85027; 87636; 94640; 94664